=== PATIENT | female | born 1945 | race Caucasian/White ===

== ENCOUNTER 2016-07-11 10:53 | Inpatient (IN) | payer MEDICARE, OTHER ==
[~2016-07-11] VITALS: Ht 157.5 cm; Wt 49.9 kg
[~2016-07-11 10:53] MED LIST: ACTONEL 35 MG PO; BUTALB-APAP-CA1 EACH PO; CALCIUM 600+D T1 TA1 PO; DEPAKOTE500 MG PO; ELIQUIS5 MG PO; FISH OIL 1,2001 CAP PO; IMITREX6 MG/0.51 SQ; LYRICA200 MG PO; NEXIUM40 MG PO; PACERONE100 MG PO; PROZAC20 MG PO; REMERON30 MG PO; Rythmol PO; SYNTHROID50 MCG PO; TOPROL XL25 MG PO; ZETIA10 MG PO; [UNRECOGNIZED DRUG - OTHER] PO
[2016-07-11 12:12] LABS: BASOPHILS 0.4 % (0.0-2.0); EOSINOPHILS 1.4 % (0-7); HEMATOCRIT 40.5 % (36.0-48.0); IMMATURE GRANULOCYTES 0.3 % (0-5); LYMPHOCYTES 17.9 % (15-50); MCH 27.1 pg (26.0-34.0); MCHC 32.1 g/dL (31.0-37.0); MCV 84.4 fL (80.0-100.0); MEAN PLATELET VOLUME 9.6 fL (7.4-10.4); MONOCYTES 5.1 % (2-11); NEUTROPHILS 74.9 % (40-80); PLATELET COUNT 229 10x3/uL (130-400); RDW 16.4 % (11.5-14.5)
[2016-07-11 12:27] LABS: APPEARANCE CLEAR (CLEAR); BILIRUBIN NEGATIVE (NEGATIVE); COLOR YELLOW (YELLOW); GLUCOSE NEGATIVE (NEGATIVE); KETONE NEGATIVE (NEGATIVE); LEUKOCYTE ESTERASE NEGATIVE (NEGATIVE); NITRITE NEGATIVE (NEGATIVE); PROTEIN NEGATIVE (NEGATIVE); SPECIFIC GRAVITY 1.015 (1.005-1.020); UROBILINOGEN NORMAL (NORMAL)
[2016-07-11 12:41] LABS: ALBUMIN 2.7 g/dL (3.4-5.0); ALKALINE PHOSPHATASE 134 U/L (46-116); ALT (SGPT) 17 U/L (10-68); BILIRUBIN - TOTAL 0.32 mg/dL (0.2-1.3); CALC OSMOLALITY 275 mosm/kg (275-300); CALCIUM 8.9 mg/dL (8.5-10.1); CARBON DIOXIDE 27.9 mmol/L (21.0-32.0); CHLORIDE - SERUM 104 mmol/L (98-107); CREATININE - SERUM 0.9 mg/dL (0.6-1.3); GLUCOSE 86 mg/dL (74-106); POTASSIUM - SERUM 4.5 mmol/L (3.5-5.1); PROTEIN - SERUM 7.1 g/dL (6.4-8.2); SODIUM 139 mmol/L (136-145); UREA NITROGEN 11 mg/dL (7-18); eGFR NON AFRICAN AMERICAN 66 mL/min (90-120)
[2016-07-11 12:47] LABS: INR 1.37 (0.85-1.17); PROTIME 16.8 SECONDS (11.6-15.0)
[2016-07-11 12:48] LABS: AMYLASE - SERUM 50 U/L (25-115); CREATINE KINASE 57 UL (21-215); LIPASE 61 U/L (73-393); PRO BNP 100 pg/mL (0-125); THYROID STIMULATING HORMONE 0.92 uIU/mL (0.36-3.74); VALPROIC ACID (DEPAKOTE) 63.5 ug/mL (50.0-100.0)
[2016-07-11 12:50] LABS: TROPONIN-I < 0.017 ng/mL (0.000-0.060)
[2016-07-12] VITALS: BP 129/71
[2016-07-12 04:00] VITALS: BP 131/75
[2016-07-12 06:10] VITALS: BP 109/67; BMI 20.1
[2016-07-12 06:37] LABS: BASOPHILS 0.7 % (0.0-2.0); EOSINOPHILS 1.8 % (0-7); HEMATOCRIT 36.3 % (36.0-48.0); HEMOGLOBIN 11.4 g/dL (12-16); IMMATURE GRANULOCYTES 0.1 % (0-5); LYMPHOCYTES 23.5 % (15-50); MCH 26.3 pg (26.0-34.0); MCHC 31.4 g/dL (31.0-37.0); MCV 83.8 fL (80.0-100.0); MEAN PLATELET VOLUME 9.5 fL (7.4-10.4); MONOCYTES 6.1 % (2-11); NEUTROPHILS 67.8 % (40-80); PLATELET COUNT 190 10x3/uL (130-400); RBC 4.33 10x6/uL (4.00-5.40); RDW 16.6 % (11.5-14.5)
[2016-07-12 06:38] LABS: WBC 7.4 10x3/uL (4.8-10.8)
[2016-07-12 06:52] LABS: CALC OSMOLALITY 277 mosm/kg (275-300); CALCIUM 8.7 mg/dL (8.5-10.1); CARBON DIOXIDE 28.4 mmol/L (21.0-32.0); CHLORIDE - SERUM 107 mmol/L (98-107); CREATININE - SERUM 0.7 mg/dL (0.6-1.3); GLUCOSE 86 mg/dL (74-106); POTASSIUM - SERUM 4.4 mmol/L (3.5-5.1); SODIUM 141 mmol/L (136-145); UREA NITROGEN 8 mg/dL (7-18); eGFR NON AFRICAN AMERICAN 88 mL/min (90-120)
--- NOTE | 2016-07-12 07:12 | HP ---
PATIENT: ROGER FARRELL MEDICAL RECORD: [id number] ACCOUNT: [id number] LOCATION:D.MS [id number] : 46 ADMISSION DATE: 07/11/16 HISTORY AND PHYSICAL EXAMINATION DATE OF ADMISSION: 07/11/2016 CHIEF COMPLAINT: Chronic nausea, lethargy, and generalized weakness. HISTORY OF PRESENT ILLNESS: The patient is a 70-year-old female who is a patient of Dr. Preston Sawant. Dr. Sawant does not round in [place]. Therefore, the patient is admitted to my service on an unassigned medicine. Apparently for the past 4 to 5 days, the patient has had increasing weakness. The states she has not been herself. She has been wheelchair bound at home. PAST MEDICAL HISTORY: Apparently in 2006, the patient was admitted in [place] for a bladder tuck, and apparently, had some anoxic episode that left her with some brain damage. Apparently, in late 2015, the patient was admitted to [place] in May or June with early CVA. The patient's past history is significant that she has had a history of atrial fibrillation. She also apparently has a history of gastroesophageal reflux, and also, she has a history of chronic pain and depression. FAMILY HISTORY: Father in his 40s of TB. Mother apparently in her 70s secondary to TB. Apparently, the patient has had a history of having a lung partial lobectomy secondary to TB in the 1960s. MEDICATIONS: Include Zetia 10 mg once a day, Imitrex 6 mg subcutaneous q.24 hours p.r.n. pain, Lyrica 200 mg 1 p.o. t.i.d., Prozac 20 mg once a day, Remeron 30 mg once a day, Depakote EC 500 mg p.o. b.i.d., Fioricet 50/325/40 two p.o. daily, Nexium 40 mg once a day, Actonel 35 mg once a week, Eliquis 5 mg b.i.d., Rythmol 150 p.o. b.i.d., and levothyroxine 50 mcg once a day. ALLERGIES: ABILIFY, CODEINE, AMBIEN, DEMEROL, EPINEPHRINE, FLEXERIL, CODEINE, STADOL, VALIUM, VICODIN, SULFA, AND LATEX. REVIEW OF SYSTEMS: CONSTITUTIONAL: She denies any headaches, seizures, or syncope. Denies change in visual or auditory acuity. PULMONARY: She denies any shortness of breath, cough or congestion, history of asthma or bronchitis. CARDIOVASCULAR: No chest pain, palpitation, PND, or orthopnea. GASTROINTESTINAL: No chronic nausea, vomiting, melena, or hematochezia. GENITOURINARY: No urgency, frequency, or dysuria. PHYSICAL EXAMINATION: VITAL SIGNS: Respirations 18, temperature 97.9, blood pressure 156/94, and O2 sat is 99% on room air. GENERAL: The patient is somewhat sedated, is at bedside. The patient is awake. She is oriented to person, not to time, although she is alert and aware of the place. HEENT: Head is normocephalic. No lesions. Ears, TMs are clear. Eyes, pupils are equal, round, and reactive to light. Extraocular movements intact. Nasal cavity, oral cavity, and oropharynx clear. HISTORY AND PHYSICAL [id number] ROGER FARRELL NECK: Supple. There is no adenopathy. HEART: Has a regular rhythm. No murmurs, gallops, or rubs. LUNGS: Clear. ABDOMEN: Soft, bowel sounds positive. No organomegaly. LABORATORY AND DIAGNOSTIC DATA: The patient did have a white count of 11, hemoglobin of 13, hematocrit of 40.5, and her platelets were 229. She had a sodium of 139, potassium of 4.5, chloride of 104, CO2 of 27.9, BUN of 11, creatinine of 0.9, and blood sugar of 86. Urinalysis is unremarkable. CT scan of the head showed no acute intracranial abnormalities, generalized cerebral atrophy. Chest x-ray showed no cardiomegaly, no active infiltrates. The patient had a gallbladder ultrasound showing negative gallbladder ultrasound. ASSESSMENT: 1. Lethargy, chronic nausea, history of anoxic brain injury, and history of seizure disorder. 2. Cerebrovascular accident. 3. Headaches. 4. Gastroesophageal reflux. PLAN: The patient will be admitted. She will be placed on IV hydration and antiemetics. The patient will have a PIPIDA scan performed. We will get a Depakote level and reassess in the a.m. TRANSINT:[id number] Voice Confirmation ID: [id number] DOCUMENT ID: [id number] JEANMARIE GRACIA MD at 0712 CC: [id number] DICTATION DATE: 07/11/16 1844 PARQUET FLOOR LAYER: 07/12/16 0039 ADM IN [place] [id number] [place] [id number]
--- NOTE | 2016-07-12 07:30 | NUR ---
RECEIVED REPORT. ASSUMED CARE OF PATIENT. CALL LIGHT WITHIN REACH. RESP EVEN AND UNLABORED. RESTING WITH EYES CLOSED. NO ACUTE DISTRESS.
--- NOTE | 2016-07-12 07:45 | NUR ---
PATIENT MADE NPO AT THIS TIME FOR PIPIDA SCAN AT 1030. ASSISTED PATIENT TO BEDPAN. NO ACUTE DISTRESS.
[2016-07-12 08:28] VITALS: BP 135/92
--- NOTE | 2016-07-12 10:29 | NUR ---
1015 PATIENT RETURNED FROM MRI AND LEFT AT 1025 FOR PIPIDA SCAN. PATIENT IN NO ACUTE DISTRESS UPON LEAVING UNIT. PIPIDA SCAN TAKES ABOUT 1 1/2 HOUR TO COMPLETE.
--- NOTE | 2016-07-12 12:20 | NUR ---
ULTRASOUND AT BEDSIDE AT THIS TIME.
--- NOTE | 2016-07-12 12:46 | NUR ---
MEDICATED FOR PAIN, FIBROMYALGIA. TELEMETRY APPLIED AT THIS TIME. NO DISTRESS.
--- NOTE | 2016-07-12 13:13 | NUR ---
CALLED DIETARY AND AGAIN REQUESTED THAT PATIENT BE GIVEN A LUNCH TRAY! STATED THEY WOULD SEND ONE NOW BUT THEIR RECORDS INDICATE SHE RECEIVED ONE.
[2016-07-12 13:55] VITALS: Ht 157.5 cm; Wt 49.9 kg
--- NOTE | 2016-07-12 14:10 | NUR ---
MEDICATED FOR NAUSEA AT THIS TIME. NO DISTRESS.
--- NOTE | 2016-07-12 14:50 | NUR ---
Patient Name: ROGER FARRELL Admission Status: ER Accout number: [id number] Admission Date: 07-11-2016 : 1945 Admission Diagnosis: Attending: VANDANA Current LOS: 1 Anticipated DC Date: 07-16-2016 Planned Disposition: Home Primary Insurance: MEDICARE A & B Discharge Planning Comments: CM MET WITH SPOUSE (JB) REGARDING PATIENTS DISCHARGE PLANS AND NEEDS. SPOUSE STATED THEY HAVE 5 STEPS W/RAILS TO ENTER HOME AND 1 FLIGHT W/LIFT IN HOME. SPOUSE STATED HE WOULD BE DRIVING PATIENT HOME IF SHE DOES NOT GO TO [facility]. SPOUSE IS GOING TO TALK WITH THEM THIS WEEK. PATIENTS PCP IS DR. ERICKSON AND PHARMACY IS [facility]. PATIENT IS VERY DEPENDENT ON HER SPOUSE FOR HER CARE. SHE HAS A BS COMMODE, SHOWER CHAIR, WALKER, ROLATOR WALKER, HAND RAILS, PORT O2, NEBULIZER, AND OXYGEN AT HS. OXYGEN IS PROVIDED BY [facility]. SPOUSE STATED SHE HAS GOTTEN WORSE SINCE LAST WEEK AND THAT IS WHY HE IS TALKING WITH [facility]. CM WILL CONTINUE TO FOLLOW PATIENT WITH D/C NEEDS AND PLANS. PATIENT HAS NEVER HAD HOME HEALTH. PCP DR. DRE ALICIA [facility]- [phone] JB (SPOUSE) [phone] Metal Precision Machine Assembler: Latoya Munson Is the patient Alert and Oriented? Yes 0 * How many steps to enter\exit or inside your home? 5 W/RAILS 0 * PCP DR. ERICKSON 0 * Pharmacy [facility] 0 * Preadmission Environment Home with Family 0 * ADLs Independent 0 * Equipment Bedside Commode Cane Nebulizer Oxygen Rolling Walker Shower Chair Walker Wheelchair 0 * Other Equipment HAND RAILS THROUGHOUT HOME 0 * List name and contact numbers for known caregivers / representatives who currently or will assist patient after discharge: JB (SPOUSE) [phone] * Community resources currently utilized None 0 * Additional services required to return to the preadmission environment? Yes 0 * Can the patient safely return to the preadmission environment? Yes 0 * Has this patient been hospitalized within the prior 30 days at any hospital? No 0 Grand Total: 0
--- NOTE | 2016-07-12 15:18 | NUR ---
SPOKE TO ABHI, NURSE TO REPORT PATIENT N/V, DIAPHORETIC. FSBS 101. VS 116/85, 90 SR, 96% O2 SAT, 18RESP. REPORTED ZOFRAN GIVEN AT 1410. ABHI STATED IS IN ROOM WITH PATIENT AND SHE WOULD CALL ME RIGHT BACK. INFORMED ABHI THAT ALL TEST PREFORMED THIS AM HAVE CAME BACK WNL.
[2016-07-12 15:45] VITALS: BP 116/85
--- NOTE | 2016-07-12 15:45 | NUR ---
ABHI FROM OFFICE CALLED BACK WITH NEW ORDERS FOR MOM. REQUESTED ORDERS FOR ENEMA PAIENT CONSTIPATED AND STRAINING CAUSING HERSELF TO BE [id number]. GAVE ORDERS FOR FLEETZ ENEMA AND MOM DAILY. THANKED AND ABHI.
--- NOTE | 2016-07-12 16:20 | NUR ---
ENEMA SUCCESSFUL. EX LARGE BM AFTER 1ST FLEETZ ENEMA. BOWEL MOVEMENT NOTED TO HAVE IRRITATED HEMORROIDS, RECTUM. SMALL AMOUNT OF BLOOD NOTED. COMPLETE BED CHANGE, TURNED AND REPOSITIONED. PATIENT STATES SHE FEELS MUCH BETTER. NO FURTHER DIAPHORESIS AT THIS TIME.
[2016-07-12 19:00] VITALS: BP 126/80
--- NOTE | 2016-07-12 19:55 | NUR ---
PATIENT RESTING IN BED WATCHING TV. NO SIGNS OF DISTRESS NOTED AT THIS TIME. RESPIRATIONS EVEN AND UNLABORED. DENIES ANY NEEDS AT THIS TIME. BED LOW. CALL LIGHT IN REACH.
[2016-07-13 04:00] VITALS: BP 128/80
--- NOTE | 2016-07-13 04:38 | NUR ---
PT IN BED WITH NO DISTRESS. BED IS LOW. SIDE RAILS ARE UP X 2. CALL LIGHT IS IN REACH.
--- NOTE | 2016-07-13 08:07 | NUR ---
PT SEEN AND ASSESSED. NO COMPLAINTS AT PRESENT. NO NAUSEA DURING NIGHT OR THIS AM TO DATE. STATES HAD A LARGE BM YESTERDAY EVENING AND FEELS BETTER. NO SKIN BREAKDOWN NOTED. BED ALARM FOR SAFETY. NO NEURO DEFICITS NOTED.
[2016-07-13 08:17] VITALS: BP 127/85
--- NOTE | 2016-07-13 10:13 | NUR ---
UP TO CHAIR WITH PHYSICAL THERAPY. CHAIR MAT ALARM APPLIED TO CHAIR FOR SAFETY
[2016-07-13 13:55] VITALS: BP 118/65
[2016-07-13 16:05] VITALS: BP 125/71
[2016-07-13 21:11] VITALS: BP 112/62
--- NOTE | 2016-07-14 02:20 | NUR ---
RN NOTE: PT LYING IN SEMI MELO'S POSITION WITH EYES CLOSED AND EASY RESPIRATIONS. IV IN RIGHT FA PATENT WITH NS INFUSING AT 100 ML / HR. SCD'S IN USE ON BLE. CALL LIGHT WITHIN REACH.
[2016-07-14 04:54] VITALS: BP 131/85
[2016-07-14 05:22] LABS: BASOPHILS 0.4 % (0.0-2.0); EOSINOPHILS 2.9 % (0-7); HEMATOCRIT 35.3 % (36.0-48.0); IMMATURE GRANULOCYTES 0.1 % (0-5); LYMPHOCYTES 25.4 % (15-50); MCH 26.4 pg (26.0-34.0); MCHC 31.2 g/dL (31.0-37.0); MCV 84.7 fL (80.0-100.0); MEAN PLATELET VOLUME 10.1 fL (7.4-10.4); MONOCYTES 6.6 % (2-11); NEUTROPHILS 64.6 % (40-80); PLATELET COUNT 172 10x3/uL (130-400); RBC 4.17 10x6/uL (4.00-5.40); RDW 17.1 % (11.5-14.5); WBC 7.3 10x3/uL (4.8-10.8)
[2016-07-14 05:44] LABS: CALC OSMOLALITY 276 mosm/kg (275-300); CALCIUM 8.3 mg/dL (8.5-10.1); CARBON DIOXIDE 31.4 mmol/L (21.0-32.0); CHLORIDE - SERUM 104 mmol/L (98-107); CREATININE - SERUM 0.6 mg/dL (0.6-1.3); GLUCOSE 92 mg/dL (74-106); POTASSIUM - SERUM 3.8 mmol/L (3.5-5.1); SODIUM 140 mmol/L (136-145); UREA NITROGEN 8 mg/dL (7-18); eGFR NON AFRICAN AMERICAN > 90 mL/min (90-120)
[2016-07-14] MEDS ORDERED: LYRICA25 MG PO (06:37)
--- NOTE | 2016-07-14 07:52 | NUR ---
RESTING WITHUOT DISTRESS.DENIES NEEDS.CALL LIGHT IN REACH
--- NOTE | 2016-07-14 08:00 | NUR ---
PT ASSESSMENT COMPLETE NO ACUTE DISTRES SNTOED RESTING QUIETLY WIH EYES CLOSED RESPS EVENA ND NON LABORED PRIYANKA LIGHT INREACH SIDE RAILS UP X 2 . SPOKE WITH SPO AND QUOC AT MD NOTES IN CHART PT HAS AAA THAT HAS NO NECESSARY TREATMENT AT THIS TIME IF TREATMENT NEEDED LATER PT IS CANIDATE FOR NON OPEN SURGICAL SENTENTING AT [facility]. WILL MONITOR
--- NOTE | 2016-07-14 08:00 | NUR ---
PT ASSESSMENT COMPLETE NO ACUTE DISTRESS NTOED RESTING QUIETLY WITH EYES CLOSED RESPS EVEN AND UNLABORED. AWAITING TRANSFER TO ANOTHER HOSPITAL FOR AAA REPAIR THERE IS UNDERLYING ISSUES THAT CANT BE SAFELY TREATED HERE
[2016-07-14 10:05] VITALS: BP 156/104
--- NOTE | 2016-07-14 11:45 | NUR ---
DISCHARGE INSTRUCTIONS GIVEN TO PT AND FAMILY UNDERSTANDING EXPRESSED PER SPOUSE RX GIVEN AWAITING AMBULANCE TRANSFER OF PT TO HOME. IV D/C WITH TIP INTACT
--- NOTE | 2016-07-14 12:28 | NUR ---
PT DISCHARGED AT THIS TIME PER EMS ALERT AND AWAKE AT TIME OF TRANSFER
--- NOTE | 2016-07-15 11:11 | EC ---
PATIENT:ROGER FARRELL DATE OF SERVICE: 07/11/16 SEX: F MEDICAL RECORD: [id number] DATE OF : [birth year] LOCATION:D.MS Chaparro223 AGE OF PATIENT: 70 ADMISSION DATE: 07/11/16 REFERRING PHYSICIAN: INTERPRETING PHYSICIAN: ELISE FOUNTAIN MD ECHOCARDIOGRAM REPORT ECHO CHARGES 4 ECHO COMPLETE CLINICAL DIAGNOSIS: AFIB/CVA ECHOCARDIOGRAPHIC MEASUREMENTS (adult normal given) AC root (d.<3.7cm) 3.5 LV Septum d (<1.2 cm> 1.2 Valve Excursion 1.7 LV Septum (systole) 1.3 Left Atria (s.<4.0cm> 2.7 LVPW d(<1.2cm) 1.2 RV (d.<2.3cm) 3.9 LVPW (sytole) 1.4 LV diastole(<5.6CM) 4.0 MV E-F(>70mm/sec) LV systole 2.8 LVOT Diameter 1.9 MV exc.(>10mm) 1.1 Est.ejection fraction (50-75%) Pericardial Effusion N DOPPLER: LVIT A 95.0 E 58.0 LA RVSP 17 LVOT 127 AOP1/2T Asc. Ao 148 RVOT 94 RA PA 147 AV Gradient Peak 8.8 AV Mean 5.6 AV Area 1.8 MV Gradient Peak 4.4 MV Mean 1.83 MV Area COMMENTS: Senior Executive Compensation Analyst: Ankur AGARWAL House Wrecker:Wilma Fountain TAPE# PACS DATE OF SERVICE: 07/12/2016 Echocardiogram FINDINGS: 1. Left ventricular chamber size is within normal limits. Left ventricular systolic function is normal. Overall ejection fraction estimated at 60%. 2. Left atrium, right atrium, and right ventricular chamber sizes are within normal limits. 3. Valvular structures have normal structure and motion. ECHOCARDIOGRAM REPORT [id number] ROGER FARRELL 4. Doppler interrogation only reveals trace tricuspid regurgitation, no other valvular insufficiency or stenosis. 5. No evidence of pericardial effusion or left ventricular thrombus. TRANSINT:[id number] Voice Confirmation ID: [id number] DOCUMENT ID: [id number] ELISE FOUNTAIN MD at 1111 CC: [id number] DICTATION DATE: 07/13/16 0937 CERTIFIED MEDICAL CODER: 07/13/16 0944 DIS IN 07/14/16 [facility] [address] [place] [address]
== END 2016-07-14 12:29 | disposition home or self-care (01) | DRG 918 ==
LOC: D.ER 10:53 → D.MS 17:57
PROVIDERS: Family Medicine; Nurse Practitioner Family; ADMIT Family Medicine
DX: T50.901A Poisoning by unspecified drugs, medicaments and biological substances, accidental (unintentional), initial encounter (principal); R53.83 Other fatigue; I71.4 Abdominal aortic aneurysm, without rupture; Z86.73 Personal history of transient ischemic attack (TIA), and cerebral infarction without residual deficits; Z99.3 Dependence on wheelchair; E03.9 Hypothyroidism, unspecified; I48.91 Unspecified atrial fibrillation; R53.1 Weakness; G89.29 Other chronic pain

== ENCOUNTER 2016-09-24 09:31 | Emergency (ER) | payer MEDICARE, OTHER ==
[2016-07-12 13:55] VITALS: BMI 20.1
[~2016-09-24 09:31] MED LIST changes: +LYRICA25 MG PO
[2016-09-24 11:39] LABS: ALBUMIN 2.7 g/dL (3.4-5.0); ALKALINE PHOSPHATASE 90 U/L (46-116); ALT (SGPT) 26 U/L (10-68); CALC OSMOLALITY 262 mosm/kg (275-300); CALCIUM 9.3 mg/dL (8.5-10.1); CARBON DIOXIDE 26.3 mmol/L (21.0-32.0); CHLORIDE - SERUM 96 mmol/L (98-107); CREATINE KINASE 31 UL (21-215); CREATININE - SERUM 0.7 mg/dL (0.6-1.3); GLUCOSE 113 mg/dL (74-106); POTASSIUM - SERUM 3.7 mmol/L (3.5-5.1); PROTEIN - SERUM 6.4 g/dL (6.4-8.2); SODIUM 132 mmol/L (136-145); TROPONIN-I < 0.017 ng/mL (0.000-0.060); UREA NITROGEN 4 mg/dL (7-18); eGFR NON AFRICAN AMERICAN 88 mL/min (90-120)
[2016-09-24 11:43] LABS: APPEARANCE CLEAR (CLEAR); BILIRUBIN NEGATIVE (NEGATIVE); COLOR YELLOW (YELLOW); GLUCOSE NEGATIVE (NEGATIVE); KETONE NEGATIVE (NEGATIVE); LEUKOCYTE ESTERASE NEGATIVE (NEGATIVE); NITRITE NEGATIVE (NEGATIVE); PROTEIN NEGATIVE (NEGATIVE); UROBILINOGEN NORMAL (NORMAL)
[2016-09-24 11:44] LABS: BASOPHILS 0.1 % (0.0-2.0); EOSINOPHILS 0 % (0-7); HEMOGLOBIN 13.6 g/dL (12-16); IMMATURE GRANULOCYTES 0.2 % (0-5); LYMPHOCYTES 8.2 % (15-50); MCH 27.6 pg (26.0-34.0); MCHC 33.2 g/dL (31.0-37.0); MCV 83.3 fL (80.0-100.0); MEAN PLATELET VOLUME 9.2 fL (7.4-10.4); MONOCYTES 6.4 % (2-11); NEUTROPHILS 85.1 % (40-80); PLATELET COUNT 180 10x3/uL (130-400); RBC 4.92 10x6/uL (4.00-5.40); RDW 21.4 % (11.5-14.5); WBC 9.6 10x3/uL (4.8-10.8)
== END 2016-09-24 13:43 | disposition home or self-care (01) ==
LOC: D.ER 09:31
PROVIDERS: Emergency Medicine
DX: J06.9 Acute upper respiratory infection, unspecified (principal); J20.9 Acute bronchitis, unspecified; J44.1 Chronic obstructive pulmonary disease with (acute) exacerbation; E87.1 Hypo-osmolality and hyponatremia

== ENCOUNTER 2016-11-14 11:41 | Inpatient (IN) | payer MEDICARE, OTHER ==
[~2016-11-14] VITALS: Ht 157.5 cm; Wt 49.9 kg
[2016-11-14 12:11] LABS: BASOPHILS 0.4 % (0-2); EOSINOPHILS 1.6 % (0-7); HEMATOCRIT 42.2 % (36.0-48.0); HEMOGLOBIN 13.8 g/dL (12-16); IMMATURE GRANULOCYTES 0.3 % (0-5); LYMPHOCYTES 21.4 % (15-50); MCH 29.1 pg (26.0-34.0); MCHC 32.7 g/dL (31.0-37.0); MCV 88.8 fL (80.0-100.0); MEAN PLATELET VOLUME 9.5 fL (7.4-10.4); NEUTROPHILS 67.3 % (40-80); PLATELET COUNT 184 10x3/uL (130-400); RBC 4.75 10x6/uL (4.00-5.40); RDW 18.5 % (11.5-14.5); WBC 6.9 10x3/uL (4.8-10.8)
[2016-11-14 12:20] LABS: APPEARANCE HAZY (CLEAR); BILIRUBIN NEGATIVE (NEGATIVE); COLOR YELLOW (YELLOW); GLUCOSE NEGATIVE (NEGATIVE); KETONE NEGATIVE (NEGATIVE); LEUKOCYTE ESTERASE 1+ (NEGATIVE); NITRITE POSITIVE (NEGATIVE); PROTEIN NEGATIVE (NEGATIVE); UROBILINOGEN NORMAL (NORMAL)
[2016-11-14 12:23] LABS: BACTERIA MANY /hpf (NONE SEEN); EPITHELIAL CELLS 0-5 /hpf (0-5); RED CELLS - URINE 0-5 /hpf (0-5)
[2016-11-14 12:47] LABS: ALBUMIN 3.1 g/dL (3.4-5.0); ALKALINE PHOSPHATASE 85 U/L (46-116); ALT (SGPT) 19 U/L (10-68); BILIRUBIN - TOTAL 0.17 mg/dL (0.2-1.3); CALC OSMOLALITY 270 mosm/kg (275-300); CALCIUM 9.2 mg/dL (8.5-10.1); CARBON DIOXIDE 30.9 mmol/L (21.0-32.0); CHLORIDE - SERUM 100 mmol/L (98-107); CREATININE - SERUM 0.8 mg/dL (0.6-1.3); GLUCOSE 107 mg/dL (74-106); POTASSIUM - SERUM 3.7 mmol/L (3.5-5.1); PROTEIN - SERUM 7.1 g/dL (6.4-8.2); SODIUM 137 mmol/L (136-145); UREA NITROGEN 3 mg/dL (7-18); eGFR NON AFRICAN AMERICAN 75 mL/min (90-120)
[2016-11-14 12:56] LABS: PRO BNP 92 pg/mL (0-125)
[2016-11-14 16:58] VITALS: BP 122/73
[2016-11-14] MEDS ORDERED: PROZAC20 MG PO (17:29)
[2016-11-14] MEDS ORDERED: REMERON30 MG PO (17:29)
[2016-11-14] MEDS ORDERED: RYTHMOL SR225 MG PO (17:31)
[2016-11-14 17:37] VITALS: BMI 20.1
[2016-11-14 19:53] LABS: ERYTHROCYTE SEDIMENTATION RATE 4 mm/hr (0-30)
[2016-11-14 20:00] VITALS: BP 102/69
--- NOTE | 2016-11-14 22:00 | NUR ---
ASSESSMENT COMPLETE. NIGHTTIME MEDS GIVEN. URINE CULTURE ORDERED BUT PATIENT INCONTINENT. SAMPLE RETRIEVED VIA IN AND OUT CATH. ATTEMPTED TO TURN PATIENT BUT SHE REFUSED AND STATED "I SLEEP ON MY LEFT SIDE ALL NIGHT LONG AT HOME."
[2016-11-15] VITALS (7 sets, daily range): BP systolic 129–147; BP diastolic 72–77; Ht 157.5 cm; Wt 49.9 kg
--- NOTE | 2016-11-15 06:50 | NUR ---
MORNING MEDS GIVEN. NO OTHER NEEDS AT THIS TIME.
--- NOTE | 2016-11-15 07:30 | NUR ---
FAMILY AT BEDSIDE, A&O, DENIES NEEDS, ASSESSMENT COMPLETE, EGG CRATE MATTRESS PLACED ON BED FOR COMFORT, BED LOWEST POSITION, CALL LIGHT IN REACH, WILL CONTINUE TO MONITOR
--- NOTE | 2016-11-15 09:10 | NUR ---
PATIENT ALERT IN HIGH MELO POSITION WITH AT BEDSIDE. NO SIGNS OF DISTRESS NOTED. SIDE RAILS UP X2. BED IN LOW POSITION. CALL LIGHT IN REACH.
[2016-11-15 09:50] LABS: BASOPHILS 0.4 % (0-2); EOSINOPHILS 1.6 % (0-7); HEMATOCRIT 40.9 % (36.0-48.0); HEMOGLOBIN 13.1 g/dL (12-16); IMMATURE GRANULOCYTES 0.3 % (0-5); LYMPHOCYTES 18.8 % (15-50); MCH 28.7 pg (26.0-34.0); MCV 89.7 fL (80.0-100.0); MEAN PLATELET VOLUME 9.3 fL (7.4-10.4); MONOCYTES 8.3 % (2-11); NEUTROPHILS 70.6 % (40-80); PLATELET COUNT 159 10x3/uL (130-400); RBC 4.56 10x6/uL (4.00-5.40); RDW 18.4 % (11.5-14.5); WBC 7.7 10x3/uL (4.8-10.8)
[2016-11-15 10:05] LABS: ALBUMIN 2.7 g/dL (3.4-5.0); ALKALINE PHOSPHATASE 82 U/L (46-116); ALT (SGPT) 19 U/L (10-68); BILIRUBIN - TOTAL 0.14 mg/dL (0.2-1.3); CALC OSMOLALITY 272 mosm/kg (275-300); CALCIUM 8.7 mg/dL (8.5-10.1); CARBON DIOXIDE 31.7 mmol/L (21.0-32.0); CHLORIDE - SERUM 104 mmol/L (98-107); CREATININE - SERUM 0.7 mg/dL (0.6-1.3); GLUCOSE 107 mg/dL (74-106); POTASSIUM - SERUM 4.1 mmol/L (3.5-5.1); PROTEIN - SERUM 6.4 g/dL (6.4-8.2); SODIUM 138 mmol/L (136-145); eGFR NON AFRICAN AMERICAN 88 mL/min (90-120)
[2016-11-15 10:08] LABS: UREA NITROGEN 4 mg/dL (7-18)
--- NOTE | 2016-11-15 11:32 | NUR ---
Patient Name: ROGER FARRELL Admission Status: ER Accout number: [id number] Admission Date: 11-14-2016 : 1945 Admission Diagnosis: Attending: CELINA Current LOS: 1 Anticipated DC Date: 11-17-2016 Planned Disposition: [facility] Facility Primary Insurance: MEDICARE A & B Discharge Planning Comments: CM MET WITH PATIENT AND SPOUSE (JB) REGARDING D/C NEEDS AND PLANS. PATIENT LIVES WITH HER SPOUSE AND HE WILL DRIVE HER HOME IF PATIENT DOES NOT GO TO SNF. PATIENT HAS 5 STEPS W/RAILS TO ENTER HOME AND A 13 STAIRS W/CHAIR LIFT INSIDE HOME. PATIENT IS PARTIAL DEPENDENT ON HER CARE AND HAS OXYGEN (2L), PORT O2, NEBULIZER, WALKER, WHEELCHAIR, BSC, SHOWER CHAIR, AND CHAIR LIFT AT HOME. [employer] SUPPLIES PATIENTS OXYGEN. PATIENTS PCP IS DR. CAMACHO AND PHARMACY IS [facility] ON [address]. SPOUSE AND PATIENT HAS SIGNED THE [facility]ER FORM WITH [facility]. CM WILL CONTINUE TO FOLLOW PATIENT WITH D/C NEEDS AND PLANS. PCP DR. JANICE JAFFE ON [facility]- [phone] JB (SPOUSE) [phone] Senior Technical Analyst: Latoya Munson How many steps to enter\exit or inside your home? 5 W/RAILS 0 * PCP DR. CAMACHO 0 * Pharmacy [facility] 0 * Preadmission Environment Home with Family 0 * ADLs Partial Dependent 0 * Partial ADLs (Assistance needed) Bathing Dressing Medication Management Transfers 0 * Equipment Bedside Commode Nebulizer Oxygen Shower Chair Walker Wheelchair 0 * Other Equipment CHAIR LIFT UP STAIRWAY RAILS THROUGHOUT HOME 0 * List name and contact numbers for known caregivers / representatives who currently or will assist patient after discharge: JB (SPOUSE) [phone] * Community resources currently utilized None 0 * Additional services required to return to the preadmission environment? Yes 0 * Can the patient safely return to the preadmission environment? Yes 0 * Has this patient been hospitalized within the prior 30 days at any hospital? No 0 Grand Total: 0
--- NOTE | 2016-11-15 13:51 | HP ---
PATIENT: ROGER RICO MEDICAL RECORD: [id number] ACCOUNT: [id number] LOCATION:D.MS [id number] : [birth year] ADMISSION DATE: 11/14/16 HISTORY AND PHYSICAL EXAMINATION HISTORY OF PRESENT ILLNESS: Ms. Rico is a 71-year-old white female that presents to the Emergency Room with increasing weakness. She is found to have a UTI. She has a rather complicated medical past. Her primary care physician is Dr. Preston Sawant, who does not have privileges here. She apparently had some type of anoxic injury in 2006 in [place]. She has had some residual problems with some mood issues, but somewhere in the last year or so, she developed severe weakness. She was hospitalized in [facility] at [place]. She saw a neurologist there. She was also seen by neurology here who felt that she may have had some type of a stroke in the past, but that was never proven on MRI. She has had several episodes where she has increasing weakness and she goes for a couple months and stayed in rehabilitation and improved over time. Her oral last day was about 6 months ago and she did well up and then started having problems again. She states today that she has been unable to walk since about July on her own. She requires assistance of her who is no longer able to get her going or move her. She was found to have a UTI today, which may be contributing to some of her symptoms. She is admitted at this time for treatment of her UTI. We will start physical and occupational therapies. PAST MEDICAL HISTORY: As above plus she has a history of TB and underwent a left pneumonectomy in the early 60s. She has a history of intermittent atrial fibrillation, GERD, chronic pain, fibromyalgia, depression and neurological problems as above. PAST SURGICAL HISTORY: Previous surgeries have just been pneumonectomy. FAMILY HISTORY: Father in his 40s of TB. Mother in her 70s of TB. ALLERGIES: SHE HAS MULTIPLE ALLERGIES INCLUDING CODEINE, STADOL, DEMEROL, EPINEPHRINE, LATEX, VALIUM, SULFA, SLEEP AIDS, MUSCLE RELAXERS, ABILIFY, VICODIN, HYDROCODONE, TOPAMAX, VERSED AND PROPOFOL IN HIGHER DOSES. HOME MEDICATIONS: At this time, include Zetia 10 mg a day, Imitrex injection p.r.n., Lyrica 50 mg t.i.d., Prozac 20 mg t.i.d., Remeron 30 mg at bedtime, Nexium 40 mg a day, Depakote 1500 mg in the morning and 500 in the evening for migraine prevention, Fioricet p.r.n., calcium with D once a day, oxygen at 2 liters at night, Eliquis 5 twice a day, Rythmol 225 twice a day and promethazine 25 one-half to 1 p.r.n. nausea and vomiting. SOCIAL HISTORY: The patient is . She has been a smoker in the past. REVIEW OF SYSTEMS: She denies any fever. She does complain of increasing weakness primarily involving her lower extremities, a little bit in her upper extremities, but not to the extent of her lower. She denies any chest pain. She denies any shortness of breath. She denies any change in bladder or bowel habits. PHYSICAL EXAMINATION: GENERAL: She is alert and pleasant. Mood is somewhat depressed in appearance. HEART: Regular without murmur. LUNGS: Clear. HISTORY AND PHYSICAL [id number] ROGER RICO ABDOMEN: Soft. No rebound, no guarding and no mass. EXTREMITIES: Lower extremities reveal DTRs at +2. Muscle strength appears symmetric. IMPRESSION: Generalized weakness, worse in the lower extremities; urinary tract infection, intermittent atrial fibrillation and history of possible cerebrovascular accident. PLAN: Admit, treat UTI, cultures. We will check an MRI of the lumbar spine to rule out any low back pathology that might be contributing to her symptoms. Physical therapy and occupational therapy. We will get case management consult for possible rehab placement. TRANSINT:[id number] Voice Confirmation ID: [id number] DOCUMENT ID: [id number] TED KEANE DO at 1351 CC: [id number] DICTATION DATE: 11/14/16 183 NEW CAR INSPECTOR: 11/14/16 2149 ADM IN [facility] [address] [place] [address]
--- NOTE | 2016-11-15 19:00 | NUR ---
PATIENT IN BED WATCHING TV. HOB 30 DEGREES. AAOX4. RR EVEN AND UNLABORED. O2 @ 2L VIA NC. 0 S/S OF DISTRESS. STATES PAIN IS A 7/10. IV TO LEFT FA PATENT WITH NO REDNESS OR SWELLING. SCD'S OFF AT THIS TIME. SRX2. BED LOW. CALL LIGHT WITHIN REACH.
--- NOTE | 2016-11-15 21:00 | NUR ---
NIGHTTIME MEDS GIVEN. LINENS AND GOWN CHANGED DUE TO INCONTINENT EPISODE OF BLADDER.
--- NOTE | 2016-11-15 22:00 | NUR ---
PATIENT STATES MIGRAINE IS MAKING HER NAUSEATED. IMITREX GIVEN PER ORDER.
[2016-11-16 05:21] LABS: BASOPHILS 0.4 % (0-2); EOSINOPHILS 2.5 % (0-7); HEMATOCRIT 39.3 % (36.0-48.0); HEMOGLOBIN 12.8 g/dL (12-16); IMMATURE GRANULOCYTES 0.2 % (0-5); LYMPHOCYTES 35.4 % (15-50); MCH 29.4 pg (26.0-34.0); MCHC 32.6 g/dL (31.0-37.0); MCV 90.1 fL (80.0-100.0); MEAN PLATELET VOLUME 9.8 fL (7.4-10.4); MONOCYTES 8.8 % (2-11); NEUTROPHILS 52.7 % (40-80); PLATELET COUNT 160 10x3/uL (130-400); RBC 4.36 10x6/uL (4.00-5.40); RDW 18.5 % (11.5-14.5)
[2016-11-16 05:22] LABS: WBC 5.7 10x3/uL (4.8-10.8)
[2016-11-16 05:51] LABS: ALBUMIN 2.5 g/dL (3.4-5.0); ALKALINE PHOSPHATASE 73 U/L (46-116); ALT (SGPT) 16 U/L (10-68); CALC OSMOLALITY 281 mosm/kg (275-300); CALCIUM 8.6 mg/dL (8.5-10.1); CARBON DIOXIDE 31.1 mmol/L (21.0-32.0); CHLORIDE - SERUM 106 mmol/L (98-107); GLUCOSE 97 mg/dL (74-106); SODIUM 143 mmol/L (136-145); UREA NITROGEN 4 mg/dL (7-18)
[2016-11-16 05:53] LABS: CREATININE - SERUM 0.5 mg/dL (0.6-1.3); eGFR NON AFRICAN AMERICAN > 90 mL/min (90-120)
[2016-11-16 06:30] VITALS: BP 132/74
--- NOTE | 2016-11-16 07:40 | NUR ---
A&0, DENIES NEEDS, PLACED ON BED LEIJA, ASSESSMENT COMPLETE, BED LOWEST POSITION, CALL LIGHTIN REACH, WILL CONTINUE TO MONITOR
[2016-11-16 08:01] VITALS: BP 156/84
--- NOTE | 2016-11-16 11:13 | NUR ---
CM REASSESSMENT REFERRAL SENT TO [facility]
[2016-11-16 12:46] VITALS: BP 133/81
[2016-11-16 16:17] VITALS: BP 115/70
[2016-11-16 20:00] VITALS: BP 158/85
--- NOTE | 2016-11-16 20:40 | NUR ---
WATCHING TV QUIETLY. COMPLIANTS OF GENERALIZED DISCOMFORT AT TIMES. BUCKLEY. IV INFUSING TO RIGHT FOREARM WIHTOUT REDNESS OR EDEMA NOTED. CL IN REACH.
[2016-11-17] VITALS: BP 144/80
--- NOTE | 2016-11-17 00:49 | NUR ---
EYES CLOSED RESP EVEN AND UNALBORED. NO DISTRESS NOTED. CL IN REACH
[2016-11-17 04:00] VITALS: BP 142/78
--- NOTE | 2016-11-17 04:32 | NUR ---
PT RESTING QUIETLY, EYES CLOSED. RESP EVEN, UNLABORED. NO DISTRESS NOTED. CONTINUE GAGGERMAN'S PLAN OF CARE.
[2016-11-17 05:18] LABS: BASOPHILS 0.5 % (0-2); EOSINOPHILS 4.3 % (0-7); HEMATOCRIT 40.5 % (36.0-48.0); HEMOGLOBIN 12.9 g/dL (12-16); IMMATURE GRANULOCYTES 0.2 % (0-5); MCH 28.8 pg (26.0-34.0); MCHC 31.9 g/dL (31.0-37.0); MCV 90.4 fL (80.0-100.0); MEAN PLATELET VOLUME 9.7 fL (7.4-10.4); MONOCYTES 7.9 % (2-11); NEUTROPHILS 52.1 % (40-80); PLATELET COUNT 140 10x3/uL (130-400); RBC 4.48 10x6/uL (4.00-5.40); RDW 18.6 % (11.5-14.5); WBC 5.6 10x3/uL (4.8-10.8)
[2016-11-17 05:48] LABS: ALBUMIN 2.5 g/dL (3.4-5.0); ALKALINE PHOSPHATASE 74 U/L (46-116); ALT (SGPT) 17 U/L (10-68); BILIRUBIN - TOTAL 0.08 mg/dL (0.2-1.3); CALC OSMOLALITY 282 mosm/kg (275-300); CALCIUM 8.6 mg/dL (8.5-10.1); CARBON DIOXIDE 29.6 mmol/L (21.0-32.0); CHLORIDE - SERUM 107 mmol/L (98-107); CREATININE - SERUM 0.5 mg/dL (0.6-1.3); GLUCOSE 94 mg/dL (74-106); POTASSIUM - SERUM 3.8 mmol/L (3.5-5.1); PROTEIN - SERUM 6.2 g/dL (6.4-8.2); SODIUM 143 mmol/L (136-145); UREA NITROGEN 7 mg/dL (7-18); eGFR NON AFRICAN AMERICAN > 90 mL/min (90-120)
--- NOTE | 2016-11-17 06:11 | NUR ---
NO CHANGE IN ASSESSMENT. CL IN REACH.
--- NOTE | 2016-11-17 07:21 | NUR ---
REMAINSIN CONTACT ISOLATION AT THIS TIME. RESPIRATIONS EVEN AND NON LABORED. CALL LIGHT IN REACH, WILL CONTINUE WITH PLAN OF CARE.
[2016-11-17 07:38] VITALS: BP 156/83
--- NOTE | 2016-11-17 09:18 | NUR ---
PT IS RESTING IN BED WITH EYES OPEN. ALERT AND ORIENTED X 4. PT DENIES PAIN OR DISCOMFORT AT THIS TIME. SHE VOICED CONCERN ABOUT BEING PLACED IN ISOLATION THIS AM. REASONS EXPLAINED TO PT AND SIG. OTHER WITH VERBAL UNDERSTANDING VOICED. SCD'S ARE ON. IV IS INFUSING TO LFA WITHOUT DIFFICULTY. NO REDNESS OR EDEMA NOTED AT THE INSERTION SITE. SR'S ARE UP X2 IN BED. CALL LIGHT AND BEDSIDE TABLE ARE WITHIN EASY REACH.
--- NOTE | 2016-11-17 11:00 | NUR ---
PT IS SITTING IN A CHAIR AT BEDSIDE WITH ASSIST FROM PT. NO ACUTE DISTRESS NOTED.
[2016-11-17 12:22] VITALS: BP 158/83
--- NOTE | 2016-11-17 12:27 | NUR ---
PT IS FEEDING SELF LUNCH IN HER ROOM. NO NEEDS VOICED.
--- NOTE | 2016-11-17 14:32 | NUR ---
PT RESTING IN BED WITH EYES CLOSED. NO DISTRESS NOTED.
[2016-11-17 14:46] VITALS: BP 116/71
--- NOTE | 2016-11-17 18:04 | NUR ---
RESTING IN BED EATING SUPPER. NO ACUTE DISTRESS NOTED.
--- NOTE | 2016-11-17 19:56 | NUR ---
PATIENT C/O HEACHACHE 10/ PRN IMITREX GIVEN ORDERED. MAX ASSIST TO BSC. ALERT AND ORIENTED. NO SIGNS OF DISTRESS NOTED. SHIFT ASSESSMENT COMPLETED. DENIES ANY OTHER NEEDS AT THIS TIME. BED LOW. CALL LIGHT IN REACH
[2016-11-17 20:00] VITALS: BP 137/74
--- NOTE | 2016-11-17 21:40 | NUR ---
SCHEDULED MEDS GIVEN. DENIES ANY NEEDS AT THIS TIME.
[2016-11-18] VITALS: BP 117/60
--- NOTE | 2016-11-18 01:51 | NUR ---
PATIENT RESTING WITH EYES CLOSED AND NO VISIBLE SIGNS OF DISTRESS. BED IN LOWEST POSITION AND CALL LIGHT WITHIN REACH.
[2016-11-18 04:00] VITALS: BP 127/66; BP 152/82
[2016-11-18 06:32] LABS: BASOPHILS 1.3 % (0-2); EOSINOPHILS 4.7 % (0-7); HEMATOCRIT 41.2 % (36.0-48.0); HEMOGLOBIN 13.2 g/dL (12-16); IMMATURE GRANULOCYTES 0.2 % (0-5); LYMPHOCYTES 32.5 % (15-50); MCH 29.1 pg (26.0-34.0); MCV 90.9 fL (80.0-100.0); MEAN PLATELET VOLUME 9.9 fL (7.4-10.4); MONOCYTES 7.6 % (2-11); NEUTROPHILS 53.7 % (40-80); PLATELET COUNT 146 10x3/uL (130-400); RBC 4.53 10x6/uL (4.00-5.40); RDW 18.6 % (11.5-14.5); WBC 4.7 10x3/uL (4.8-10.8)
[2016-11-18 06:55] LABS: ALBUMIN 2.6 g/dL (3.4-5.0); ALKALINE PHOSPHATASE 74 U/L (46-116); CALC OSMOLALITY 283 mosm/kg (275-300); CALCIUM 8.6 mg/dL (8.5-10.1); CARBON DIOXIDE 32.7 mmol/L (21.0-32.0); CHLORIDE - SERUM 108 mmol/L (98-107); CREATININE - SERUM 0.5 mg/dL (0.6-1.3); GLUCOSE 87 mg/dL (74-106); POTASSIUM - SERUM 3.6 mmol/L (3.5-5.1); PROTEIN - SERUM 6.5 g/dL (6.4-8.2); SODIUM 144 mmol/L (136-145); UREA NITROGEN 8 mg/dL (7-18); eGFR NON AFRICAN AMERICAN > 90 mL/min (90-120)
[2016-11-18 07:05] LABS: ALT (SGPT) 23 U/L (10-68)
--- NOTE | 2016-11-18 07:15 | NUR ---
PATIENT RECEIVED ALERT IN HIGH MELO POSITION. NO SIGNS OF DISTRESS NOTED. DENIES NEEDS. SIDE RAILS UP X2. BED IN LOW POSITION. CALL LIGHT IN REACH.
[2016-11-18 07:51] VITALS: BP 160/83
--- NOTE | 2016-11-18 09:19 | NUR ---
PATIENT ALERT IN HIGH MELO POSITION WITH AT BEDSIDE. NO SIGNS OF DISTRESS NOTED. SCHEDULED MEDICATION ADMINISTERED. SIDE RAILS UP X2. BED IN LOW POSITION. CALL LIGHT IN REACH.
--- NOTE | 2016-11-18 10:47 | NUR ---
Nutrition Follow Up: Chart reviewed. Pt is eating 65% meal avg on a regular diet. Wt stable. +BM 11/15/16. Labs reviewed. Meds noted including Remeron. Rec continue current diet. RD following.
[2016-11-18] MEDS ORDERED: FLORAJEN3 CAPS460 MG PO (11:00)
[2016-11-18] MEDS ORDERED: ZOSYN 3.3753.375 G1 IV (11:07)
--- NOTE | 2016-11-18 11:18 | NUR ---
PATIENT ALERT IN BED. C/O PAIN 02/09. SCHEDULED MEDICATION ADMINISTERED. DENIES NEEDS. SIDE RAILS UP X2. BED IN LOW POSITION. CALL LIGHT IN REACH.
--- NOTE | 2016-11-18 11:32 | NUR ---
CM REASSESSMENT NOTE: PATIENT WILL DISCHARGE TODAY TO IP REHAB. AND PATIENT AGREED.
[2016-11-18 12:00] VITALS: BP 142/84
--- NOTE | 2016-11-18 14:00 | NUR ---
PATIENT ALERT IN HIGH MELO POSITION. NO SIGNS OF DISTRESS NOTED. SIDE RAILS UP X2. BED IN LOW POSITION. CALL LIGHT IN REACH.
--- NOTE | 2016-11-18 15:28 | NUR ---
REPORT CALLED TO REHAB. [facility] RECEIVED REPORT.
[2016-11-18 15:37] VITALS: BP 110/66
--- NOTE | 2016-11-18 15:58 | NUR ---
patient d/c to rehab via wheelchair.
== END 2016-11-18 15:58 | DRG 689 ==
LOC: D.ER 11:41 → D.MS 16:34
PROVIDERS: Emergency Medicine; ADMIT Family Medicine
DX: N39.0 Urinary tract infection, site not specified (principal); R53.2 Functional quadriplegia; R53.1 Weakness; I48.91 Unspecified atrial fibrillation; Z87.891 Personal history of nicotine dependence; I71.4 Abdominal aortic aneurysm, without rupture; B96.20 Unspecified Escherichia coli [E. coli] as the cause of diseases classified elsewhere; E03.9 Hypothyroidism, unspecified; J44.9 Chronic obstructive pulmonary disease, unspecified

== ENCOUNTER 2016-11-18 15:18 | Inpatient (IN) | payer MEDICARE, OTHER ==
[~2016-11-18] VITALS: Ht 157.5 cm; Wt 49.9 kg
[~2016-11-18 15:18] MED LIST changes: +FLORAJEN3 CAPS460 MG PO; +RYTHMOL SR225 MG PO; +ZOSYN 3.3753.375 G1 IV
--- NOTE | 2016-11-18 16:28 | NUR ---
PATIENT ADMITTED TO REHAB FROM ACUTE FLOOR. DR. ERICKSON IS PATIENT PCP. SHE USES [facility] ON [address]. [facility] IS HER DME. SHE HAS O2, NEBULIZER, WALKER, W/C, BSC, SHOWER CHAIR AT HOME. WILL CONTINUE TO FOLLOW WITH PATIENT AND WILL ASSIST WITH DISCHARGE NEEDS.
[2016-11-18 18:05] VITALS: BP 121/82; BMI 20.1
[2016-11-18 19:00] VITALS: BP 121/82
--- NOTE | 2016-11-18 20:00 | NUR ---
PT IN BED WITH HOB UP FOR COMFORT. WATCHING TV. ALERT & ORIENTED. LEFT FA SALINE LOC. O2 @ 2L VIA N/C. CONTACT ISOLATION FOR ESBO. INCONTINENT. EGG CRATE MATTRESS. ELECTROLYTE PROTOCOL. PT HAS NO COMPLAINTS AT THIS TIME. BED IN LOWEST POSITION AND CALL LIGHT REJIHTIN REACH.
--- NOTE | 2016-11-19 00:55 | NUR ---
RESTING IN BED ON LEFT SIDE, EYES CLOSED. APPEARS COMFORTABLE.
--- NOTE | 2016-11-19 04:53 | NUR ---
PT LYING IN BED. EYES CLOSED. BED IN LOWEST POSITION AND CALL LIGHT WITHIN REACH.
--- NOTE | 2016-11-19 08:15 | NUR ---
PT UP IN WHEELCHAIR IN ROOM EATING BREAKFAST CALL LIGHT IN REACH IN ROOM
[2016-11-19 08:43] LABS: CALC OSMOLALITY 280 mosm/kg (275-300); CALCIUM 9.5 mg/dL (8.5-10.1); CHLORIDE - SERUM 104 mmol/L (98-107); CREATININE - SERUM 0.6 mg/dL (0.6-1.3); GLUCOSE 90 mg/dL (74-106); POTASSIUM - SERUM 3.8 mmol/L (3.5-5.1); SODIUM 142 mmol/L (136-145); UREA NITROGEN 6 mg/dL (7-18); eGFR NON AFRICAN AMERICAN > 90 mL/min (90-120)
[2016-11-19 10:49] LABS: BASOPHILS 0.8 % (0-2); EOSINOPHILS 3.3 % (0-7); HEMATOCRIT 48.1 % (36.0-48.0); HEMOGLOBIN 15.1 g/dL (12-16); IMMATURE GRANULOCYTES 0.2 % (0-5); LYMPHOCYTES 27.2 % (15-50); MCH 28.7 pg (26.0-34.0); MCHC 31.4 g/dL (31.0-37.0); MCV 91.3 fL (80.0-100.0); MEAN PLATELET VOLUME 9.9 fL (7.4-10.4); NEUTROPHILS 62.5 % (40-80); PLATELET COUNT 139 10x3/uL (130-400); RBC 5.27 10x6/uL (4.00-5.40); RDW 18.2 % (11.5-14.5)
[2016-11-19 10:50] LABS: WBC 6.4 10x3/uL (4.8-10.8)
[2016-11-19 13:22] VITALS: Ht 157.5 cm; Wt 49.9 kg
--- NOTE | 2016-11-19 15:00 | NUR ---
SITTING UP IN WC.DENIES NEEDS.CL IN REACH.
--- NOTE | 2016-11-19 17:12 | NUR ---
PT UP IN WHEELCHAIR IN ROOM WITH CALL LIGHT IN REACH WILL MONITER
[2016-11-19 20:00] VITALS: BP 106/70
--- NOTE | 2016-11-19 20:00 | NUR ---
PT UP IN W/C. WATCHING TV. ALERT & ORIENTED. LEFT FA SALINE LOC. O2 @ 2L VIA N/C. CONTACT ISOLATION FOR ESBO. INCONTINENT AND BSC. EGG CRATE MATTRESS. TWO PERSON ASSIST. ELECTROLYTE PROTOCOL. PT HAS NO COMPLAINTS AT THIS TIME. CALL ELIAS GRECO.
--- NOTE | 2016-11-20 00:40 | NUR ---
RSTING IN BED, EYES CLOSED. ZOSYN IV INFUSING PER PUMP. PATIENT CONTINUES ON CONTACT ISOLATION FOR ESBL.
--- NOTE | 2016-11-20 02:50 | NUR ---
PT LYING IN BED. EYES CLOSED. CHEST RISING AND FALLING. BED IN LOWEST POSITION AND CALL LIGHT WITHIN REACH.
--- NOTE | 2016-11-20 04:40 | NUR ---
BED BATH GIVEN.
--- NOTE | 2016-11-20 08:05 | NUR ---
PT ASSISTED TO BEDSIDE COMMODE. BRIEF CHANGED DUE TO INCONT URINE. PT BACK IN BED AND EATING BREAKFAST, DENIES FURTHER NEEDS.
--- NOTE | 2016-11-20 09:54 | NUR ---
PT AM MEDS ADMINISTERED. PT DENIES NEEDS. CL IN REACH.
[2016-11-20 09:59] VITALS: BP 121/71
--- NOTE | 2016-11-20 12:05 | NUR ---
PT EATING LUNCH, DENIES NEEDS.
--- NOTE | 2016-11-20 15:05 | NUR ---
PT RESTING QUIETY IN BED, DENIES NEEDS.
[2016-11-20 20:00] VITALS: BP 104/64
--- NOTE | 2016-11-20 20:00 | NUR ---
PT UP IN W/C. WATCHING TV. PT HAS NO COMPLAINTS AT THIS TIME. CALL LIGHT WITHIN REACH.
--- NOTE | 2016-11-21 | NUR ---
PT LYING IN BED. EYES CLOSED. CHEST RISING AND FALLING. 02 @ 2L. BED IN LOWEST POSITION AND CALL LIGHT WITHINREACH.
[2016-11-21 06:37] LABS: BASOPHILS 1.2 % (0-2); EOSINOPHILS 4.7 % (0-7); HEMATOCRIT 38.5 % (36.0-48.0); HEMOGLOBIN 12.4 g/dL (12-16); IMMATURE GRANULOCYTES 0.4 % (0-5); LYMPHOCYTES 34.3 % (15-50); MCHC 32.2 g/dL (31.0-37.0); MCV 90.2 fL (80.0-100.0); MONOCYTES 8.4 % (2-11); PLATELET COUNT 112 10x3/uL (130-400); RBC 4.27 10x6/uL (4.00-5.40); RDW 18.3 % (11.5-14.5); WBC 5.1 10x3/uL (4.8-10.8)
[2016-11-21 06:56] LABS: CALCIUM 8.7 mg/dL (8.5-10.1); CARBON DIOXIDE 34.1 mmol/L (21.0-32.0); CHLORIDE - SERUM 106 mmol/L (98-107); GLUCOSE 88 mg/dL (74-106); POTASSIUM - SERUM 4.3 mmol/L (3.5-5.1); SODIUM 144 mmol/L (136-145)
[2016-11-21 07:03] LABS: CALC OSMOLALITY 284 mosm/kg (275-300); CREATININE - SERUM 0.4 mg/dL (0.6-1.3); UREA NITROGEN 11 mg/dL (7-18); eGFR NON AFRICAN AMERICAN > 90 mL/min (90-120)
--- NOTE | 2016-11-21 07:35 | NUR ---
RESTING QUIETLY IN BED CALL LIGHT IN REACH
--- NOTE | 2016-11-21 09:09 | NUR ---
VISITED WITH SPOUSE AND HE WOUYLD LIKE FOR HER TO DISCHARGE TO [facility]
[2016-11-21 09:10] VITALS: BP 151/80
--- NOTE | 2016-11-21 15:09 | NUR ---
CURRENT IV LEAKING IV FLUID, RESITED TO RIGHT FOREARM 22G.
--- NOTE | 2016-11-21 15:31 | NUR ---
PT SITTING UP IN BED INTERACTING PRINCESS VILLATORO WITH SPEECH
--- NOTE | 2016-11-21 17:40 | NUR ---
PT SITTING UP IN BED VISITING WITH
--- NOTE | 2016-11-21 20:40 | NUR ---
ASSISTED PT WITH SHOWER.
--- NOTE | 2016-11-22 00:42 | NUR ---
PT REST QUIETLY IN BED, EYE CLOSE, BED LOW, CALL LIGHT WITHIN REACH.
--- NOTE | 2016-11-22 02:00 | NUR ---
PT RESTING IN SEMI FOLWER POSITION, EYES CLOSED, PT IN ISOLATION, PRECAUTIONS FOLLOWED. NO S/S OF ACUTE DISTRESS.
[2016-11-22 08:00] VITALS: BP 143/80
--- NOTE | 2016-11-22 08:15 | NUR ---
PT RESTING IN BED WITH EYES OPEN CALL LIGHT IN REACH NO PROBLEMS WILL MONITER
--- NOTE | 2016-11-22 13:27 | NUR ---
Nutrition Follow Up: Pt reported that her appetite is okay. She said that she does not want to receive Ensure anymore. She requested strawberry yogurt with breakfast. Pt is eating 58% meal avg on a regular diet. No BM since admit. Wt stable. Labs reviewed. Meds noted including Remeron. Pt with fair po intake. Rec continue current diet. Will d/c Ensure. Will send yogurt daily. RD following.
--- NOTE | 2016-11-22 14:29 | NUR ---
PT UP IN WHEELCHAIR IN THERAPY GYM TOLERATING WELL WILL MONITER
--- NOTE | 2016-11-22 18:48 | NUR ---
RESTING QUIETLY IN BED CALL LIGHT IN REACH
--- NOTE | 2016-11-22 19:45 | NUR ---
PT RECEIVED UP IN WHEELCHAIR AT BEDSIDE. NO CONCERNS OR NEEDS NOTED AT THIS TIME. CALL LIGHT IN REACH. O2 VIA N/C AT 2LPM. WILL CONTINUE TO OBSERVE.
[2016-11-22 21:39] VITALS: BP 124/68
--- NOTE | 2016-11-22 22:56 | NUR ---
PT IN BED WITH EYES OPEN WATCHING TV. RECEIVED MEDICATIONS PER MAR WITHOUT DIFFICULTY. NO CONCERNS MADE KNOWN. CALL LIGHT IN REACH. WILL CONTINUE TO OBSERVE.
--- NOTE | 2016-11-23 02:09 | NUR ---
PT IN BED WITH EYES CLOSED AND CHEST RISING. IV PIPER/TAZO RUNNING AT 12/5MLS/HR. NO CONCERNS NOTED AT THIS TIME. CALL LIGHT IN REACH. WILL CONTINUE TO OBSERVE.
--- NOTE | 2016-11-23 04:54 | NUR ---
PT IN BED WITH EYES CLOSED AND CHEST RISING. NO CONCERNS NOTED. NO SIGN/SYMPTOMS OF DISTRESS NOTED. CALL LIGHT IN REACH. WILL CONTINUE TO OBSERVE.
[2016-11-23 06:10] LABS: BASOPHILS 0.8 % (0-2); EOSINOPHILS 5.1 % (0-7); HEMATOCRIT 36.8 % (36.0-48.0); HEMOGLOBIN 11.6 g/dL (12-16); IMMATURE GRANULOCYTES 0.2 % (0-5); LYMPHOCYTES 32.6 % (15-50); MCH 28.4 pg (26.0-34.0); MCHC 31.5 g/dL (31.0-37.0); MCV 90.2 fL (80.0-100.0); MEAN PLATELET VOLUME 9.8 fL (7.4-10.4); MONOCYTES 9.4 % (2-11); NEUTROPHILS 51.9 % (40-80); PLATELET COUNT 119 10x3/uL (130-400); RBC 4.08 10x6/uL (4.00-5.40); RDW 18.2 % (11.5-14.5); WBC 5.1 10x3/uL (4.8-10.8)
[2016-11-23 06:32] LABS: CALC OSMOLALITY 287 mosm/kg (275-300); CALCIUM 8.6 mg/dL (8.5-10.1); CARBON DIOXIDE 31.2 mmol/L (21.0-32.0); CHLORIDE - SERUM 107 mmol/L (98-107); GLUCOSE 90 mg/dL (74-106); SODIUM 145 mmol/L (136-145); UREA NITROGEN 9 mg/dL (7-18)
[2016-11-23 06:41] LABS: CREATININE - SERUM 0.6 mg/dL (0.6-1.3); POTASSIUM - SERUM 3.5 mmol/L (3.5-5.1); eGFR NON AFRICAN AMERICAN > 90 mL/min (90-120)
--- NOTE | 2016-11-23 07:27 | NUR ---
PT RESTING IN BED WITH EYES OPEN CALL LIGHT IN REACH WILL MONITER
[2016-11-23 08:17] VITALS: BP 142/65
--- NOTE | 2016-11-23 11:34 | NUR ---
IN THERAPY.WONG WELL.
--- NOTE | 2016-11-23 13:36 | NUR ---
PT UP IN WHEELCHAIR CALL LIGHT IN REACH NO PROBLEMS WILL MONITER
--- NOTE | 2016-11-23 17:01 | NUR ---
CARE TEAM MEETING: PATIENT PROGRESSING IN THERAPY, AT THIS TIME SPOUSE STILL WANTS REFERRAL TO [facility]. WILL CONTINUE TO FOLLOW WITH PATIENT. TENATIVE DC DATE IS 12/01/16.
--- NOTE | 2016-11-23 17:39 | NUR ---
PT RESTING IN BED WITH EYES OPEN CALL LIGHT IN REACH NO PROBLEMS WILL MONITER
--- NOTE | 2016-11-23 19:33 | NUR ---
PT RECEIVED UP IN WHEELCHAIR AT BEDSIDE WATCHING TV. COMPLAINS OF PAIN WITH PAIN MEDICATION SCHEDULED. NO OTHER CONCERNS MADE KNOWN. CALL LIGHT IN REACH. WILL CONTINUE TO OBSERVE.
[2016-11-23 20:35] VITALS: BP 108/62
--- NOTE | 2016-11-23 23:15 | NUR ---
PT IN BED WITH EYES CLOSED AND CHEST RISING. NO CONCERNS NOTED. CALL LIGHT IN REACH.
--- NOTE | 2016-11-24 02:20 | NUR ---
PT IN BED WITH EYES CLOSED AND CHEST RISING. EASILY AROUSED TO VERBAL STIMULI. IV ZOSYN STARTED PER AUG. WILL CONTINUE TO OBSERVE. CALL LIGHT IN REACH.
[2016-11-24 11:36] VITALS: BP 148/81
--- NOTE | 2016-11-24 12:07 | RHP ---
PATIENT: ROGER FARRELL MEDICAL RECORD: [id number] ACCOUNT: [id number] LOCATION:[facility]1115 : 46 ADMISSION DATE: 11/18/16 REHABILITATION HISTORY AND PHYSICAL EXAMINATION POST ADMISSION PHYSICIAN EXAMINATION Post-admission Physical Examination and History and Physical DATE OF ADMISSION: 11/18/2016 ADMITTING DIAGNOSIS: Disuse myopathy HISTORY OF PRESENT ILLNESS: The patient is admitted to the inpatient rehab with a disuse myopathy. She is a 71-year-old female patient who presented to Emergency Room on November 14 with increased weakness. She was found to have UTI. She has rather complicated medical past. She apparently had some type of anoxic brain injury in 2006 as well as possible CVA. She has had several episodes where she has increasing weakness and she goes for a couple months and improved. She has done well until a couple months ago when she started having problems again, she states on admit that she was unable to walk since about July on her own. She required assistance of her , who is no longer able to get her going or to move her. She was found to have a UTI in the Emergency Room, which may be contributing to some of her symptoms. She was admitted at that time for UTI. On exam, it was noted that she had increasing weakness, primarily involving her lower extremities, ____ upper extremities, but not to the extent of her lower. MRI of the spine showed mild degenerative changes at L5-S1 with mild central disc protrusion and mild effacement of thecal sac. She has a 4.6 cm abdominal aneurysm. UA showed ESBL and E. coli and she is on contact isolation. Dr. De Leon was consulted. He is following her trip away. COMORBIDITIES: In this patient include paraspinous muscle atrophy, weakness in all 4 extremities, COPD, emphysema, UTI, decreased muscle strength, fatigue, generalized weakness, AFib, chronic pain, ESBL, migraine headaches, anxiety, depression, history of TB, fibromyalgia, anoxic brain injury, and history of CVA. PAST MEDICAL HISTORY: Significant for TB. She has got a history of intermittent AFib, gastroesophageal reflux disease, chronic pain, fibromyalgia, depression and neurological problems. PAST SURGICAL HISTORY: Previous surgery had been a pneumonectomy. ALLERGIES: MUSCLE RELAXERS, SLEEP AIDS, SULFA, TYLENOL, VICODIN, ABILIFY, STADOL, CODEINE, VALIUM, EPINEPHRINE, LATEX, AND DEMEROL. CURRENT MEDICATIONS: She is on Zosyn 3.375 grams IV q.8 hours. She is on Floranex. She is on omega 3 fish oil. She is on Zetia 10 mg daily, Protonix 40 mg daily, calcium carbonate 500 mg daily, Calmoseptine as needed, Imitrex as needed for headache, propafenone 225 b.i.d. with SR, Lyrica 50 mg t.i.d., Remeron 30 mg q.h.s., Prozac 20 mg t.i.d., Depakote 500 mg b.i.d., Fioricet as needed for headache, Eliquis 5 mg b.i.d., and polyethylene glycol 17 grams in 8 ounces of water daily. HABITS: No alcohol or tobacco use. HISTORY AND PHYSICAL [id number] ROGER FARRELL FAMILY HISTORY: Noncontributory. SOCIAL HISTORY: The patient hopes to return back home with her . REVIEW OF SYSTEMS: GENERAL: Does complain of weakness. HEENT: Denies cold, cough, or congestion. CARDIOVASCULAR: Denies chest pain. PHYSICAL EXAMINATION: VITAL SIGNS: Stable, afebrile. GENERAL: A well-developed female, in no acute distress, alert upon exam. HEENT: Normocephalic, atraumatic. Mucosa appeared moist. TMs appear shiny and mobile. NECK: Supple, with no lymphadenopathy. LUNGS: Clear at this time. HEART: Regular rate and rhythm. ABDOMEN: Benign. EXTREMITIES: No clubbing, cyanosis or edema. NEUROLOGIC: Does have noted weakness. LABORATORY DATA: Her white count is 6.4, H&H of 15 and 48, and platelet count is 139. Her sodium is 142, potassium 3.8, BUN and creatinine of 6 and 0.6 and blood sugar is noted to be 90. ASSESSMENT: This is a 71-year-old female patient admitted to rehab with a working diagnosis of disuse myopathy and also history of remote anoxic brain injury. The patient has potential to make improvement. We instituted the following multidisciplinary therapies including to, but not limited to physical, occupational, respiratory, speech, nutritional services, prosthetics and orthotics. Given her complex condition and risk for more complications, rehabilitation services cannot be provided at a low level of care such as a assisted facility. PLAN: 1. Admit to [facility] for intensive inpatient therapy to include the following disciplines: A. Physical therapy to improve gait, all transfer skills and bed mobility to a modified independent level. B. Occupational therapy to improve activities of daily living to a modified independent level. C. Case management to assist with discharge planning and placement options. D. Nutrition to assist with nutritional needs. E. Rehabilitation nursing to assist in monitoring the patient's underlying medical conditions and to assist with any type of bowel or bladder management. 2. The patient's current medications and medical care will be continued. 3. The patient will be placed on standard fall precautions. 4. The patient's estimated length of stay is approximately 7-10 days. 5. Discuss this patient during care team staff meeting this week. TRANSINT:[id number] Voice Confirmation ID: [id number] DOCUMENT ID: [id number] JANIS notes whether there has been none or any medical/functional change since admission: HISTORY AND PHYSICAL [id number] ROGER FARRELL attests patient continues to be appropriate for IRF: - MARIBETH FRANCISCO MD at 1207 CC: [id number] DICTATION DATE: 11/19/16 1409 ELEVATOR TROUBLESHOOTER: 11/20/16 1118 ADM IN [facility] [address] [place] [address]
[2016-11-24 20:00] VITALS: BP 130/81
--- NOTE | 2016-11-24 23:06 | NUR ---
PT. IN BED LYING ON HER LEFT SIDE WITH EYES CLOSED AND RESP. DEEP AND EVEN. CALL LIGHT WITHIN REACH.
--- NOTE | 2016-11-25 03:03 | NUR ---
PT. IN BED WITH HOB UP FOR COMFORT WITH EYES CLOSED AND RESP. DEEP AND EVEN. IV CONTINUES TO INFUSE VIA PUMP TO RIGHT FOREARM WITHOUT ANY ALARMS. CALL LIGHT WITHIN REACH FOR NEEDS.
--- NOTE | 2016-11-25 07:44 | NUR ---
RESTING QUIETLY IN BED CALL LIGHT IN REACH
--- NOTE | 2016-11-25 10:33 | NUR ---
PATIENT CONTINUES IN CONTACT ISOLATION. SITTING UP IN WHEELCHAIR AT BEDSIDE. IV ANTIBOITIC RUNNING RIGHT FOREARM, IV SITE
[2016-11-25 11:18] VITALS: BP 142/72
--- NOTE | 2016-11-25 12:41 | NUR ---
PATIENT SITTING UP IN WHEELCHAIR AT BEDSIDE TO EAT LUNCH. VOICES NO NEEDS
--- NOTE | 2016-11-25 14:35 | NUR ---
PATIENT ALERT/ORIENT X4. USING CALL LIGHT FOR NEEDS. CONTINUES IN CONTACT ISOLATION. AMBULATES WITH STAND BY ASST
--- NOTE | 2016-11-25 18:22 | NUR ---
VISITING IN ROOM. ISOLOATION PRECAUSIONS FOLLOWED
--- NOTE | 2016-11-25 19:28 | NUR ---
PT RECEIVED IN WHEELCHAIR AT BEDSIDE READING BOOK. COMPLAINS OF 9/10 PAIN TO HIP WITH PAIN MEDICATION SCHEDULED. NO SIGN/SYMPTOMS OF DISTRESS NOTED. NO OTHER NEEDS OR CONCERNS NOTED AT THIS TIME. CALL LIGHT IN REACH. WILL CONTINUE TO OBSERVE.
--- NOTE | 2016-11-26 01:29 | NUR ---
PT IN BED WITH EYES CLOSED AND CHEST RISING. NO SIGN/SYMPTOMS OF DISTRESS NOTED. CALL LIGHT IN REACH. WILL CONTINUE TO OBSERVE.
[2016-11-26 03:17] VITALS: BP 120/70
--- NOTE | 2016-11-26 03:33 | NUR ---
PT IN BED WITH EYES CLOSED AND CHEST RISING. IV ZOSYN AT 12.5ML/HR RUNNING WITHOUT DIFFICULTY. NO CONCERNS MADE KNOWN. CALL LIGHT IN REACH.
--- NOTE | 2016-11-26 07:30 | NUR ---
PT LYING IN BED ON RIGHT SIDE EYES CLOSED RESTING
[2016-11-26 08:00] VITALS: BP 134/81
--- NOTE | 2016-11-26 12:22 | NUR ---
PT SITTING UP IN W/C READING BOOK CALL LIGHT IN REACH
--- NOTE | 2016-11-26 15:40 | NUR ---
ASSISTED PT TO RESTROOM, TRANSFERRED WITH MIN ASSIST
--- NOTE | 2016-11-26 18:01 | NUR ---
SITTING IN W/C VISITING WITH
--- NOTE | 2016-11-26 18:32 | NUR ---
RESTING QUIETLY IN BED CALL LIGHT IN REACH
[2016-11-26 19:00] VITALS: BP 114/66
--- NOTE | 2016-11-26 19:35 | NUR ---
PT RECEIVED IN WHEELCHAIR AT BEDSIDE READING BOOK. COMPLAINS OF PAIN TO HIP AND HEAD. PAIN MEDICATION SCHEDULED WITH PT AWARE OF SCHEDULE. NO OTHER CONCERNS MADE KNOWN. CALL LIGHT IN REACH. WILL CONTINUE TO OBSERVE.
--- NOTE | 2016-11-27 00:47 | NUR ---
PT IN BED WITH EYES CLOSED AND CHEST RISING. HS MEDICATIONS HAVE BEEN GIVEN PER MAR WITHOUT DIFFICULTY. ASSISTED TO BATHROOM BEFORE ASSISTED TO BED. NO CONCERNS NOTED AT THIS TIME. CALL LIGHT IN REACH. WILL CONTINUE TO OBSERVE.
--- NOTE | 2016-11-27 04:32 | NUR ---
PT IN BED WITH EYES CLOSED AND CHEST RISING. NO SIGN/SYMPTOMS OF DISTRESS NOTED. CALL LIGHT IN REACH. WILL CONTINUE TO OBSERVE.
[2016-11-27 08:00] VITALS: BP 151/100
--- NOTE | 2016-11-27 08:33 | NUR ---
SITTING UP EATING BREAKFAST DENIES NEEDS CALL LIGHT IN REACH
--- NOTE | 2016-11-27 10:03 | NUR ---
PATIENT REMAINS IN CONTACT ISOLATION. URINE. PATIENT IS ALERT/ORIENT X4. OXYGEN ON AT 2L PER N/C. PATIENT USING CALL LIGHT FOR NEEDS, CALL LIGHT WITHIN REACH. ABNTIBIOTIC IV RUNNING IN RT FA PERIPHERAL LINE
--- NOTE | 2016-11-27 12:27 | NUR ---
PATIENT HELPED INTO BATHROOM. MOD TO MAX ASST OF ONE FRO WHEELCHAIR ONTO TOILET. PATIENT NEEDED HELP WITH LISA CARE. INCONTINACE OF URINE.
--- NOTE | 2016-11-27 15:34 | NUR ---
PATIENT REMAINS SITTING UP IN WHEELCHAIR AT BEDSIDE. READING A BOOK. CALL LIGHT WITHIN REACH. VOICES NO NEEDS
--- NOTE | 2016-11-27 17:51 | NUR ---
SALINE LOCK IN RIGHT WRIST INFILTRATED. REMOVED. TWO ATTEMPS TO RESTART SALINE LOCK FAILED. CHECO PURCELL, SUPERVISIOR NOTIFIED. STATED HE WILL COME DOWN AND ASST.
--- NOTE | 2016-11-27 19:37 | NUR ---
PT RECEIVED IN WHEELCHAIR AT BEDSIDE. COMPLAINS OF PAIN TO HIP AND HEAD WITH SCHEDULED PAIN MEDICATION COMING DUE. NO OTHER NEEDS MADE KNOWN. CALL LIGHT IN REACH. WILL CONTINUE TO OBSERVE.
--- NOTE | 2016-11-27 23:49 | NUR ---
PT UP IN WHEELCHAIR WATCHING TV. NO CONCERNS OR NEEDS MADE KNOWN CALL LIGHT IN REACH. WILL CONTINUE TO OBSERVE.
[2016-11-28 03:21] VITALS: BP 92/53
--- NOTE | 2016-11-28 03:44 | NUR ---
PT IN BED WITH EYES CLOSED AND CHEST RISING. CONTINUES IV ZOSYN WITHOUT DIFFICULTY. NO CONCERNS NOTED AT THIS TIME. CALL LIGHT IN REACH.
--- NOTE | 2016-11-28 06:42 | NUR ---
PT IN BED WITH EYES CLOSED AND CHEST RISING. RECEIVED AM MEDICATIONS WITHOUT DIFFICULTY. NO CONCERNS NOTED. CALL LIGHT IN REACH.
[2016-11-28 07:33] LABS: BASOPHILS 1.2 % (0-2); EOSINOPHILS 5.6 % (0-7); HEMATOCRIT 37.3 % (36.0-48.0); HEMOGLOBIN 11.6 g/dL (12-16); IMMATURE GRANULOCYTES 0.4 % (0-5); LYMPHOCYTES 35.7 % (15-50); MCH 28.4 pg (26.0-34.0); MCHC 31.1 g/dL (31.0-37.0); MCV 91.2 fL (80.0-100.0); MEAN PLATELET VOLUME 9.9 fL (7.4-10.4); MONOCYTES 8.8 % (2-11); NEUTROPHILS 48.3 % (40-80); RBC 4.09 10x6/uL (4.00-5.40); RDW 17.8 % (11.5-14.5)
[2016-11-28 07:42] LABS: PLATELET COUNT 186 10x3/uL (130-400)
[2016-11-28 07:50] LABS: CALC OSMOLALITY 284 mosm/kg (275-300); CALCIUM 8.5 mg/dL (8.5-10.1); CARBON DIOXIDE 32.2 mmol/L (21.0-32.0); CHLORIDE - SERUM 108 mmol/L (98-107); CREATININE - SERUM 0.6 mg/dL (0.6-1.3); GLUCOSE 102 mg/dL (74-106); POTASSIUM - SERUM 3.6 mmol/L (3.5-5.1); SODIUM 144 mmol/L (136-145); UREA NITROGEN 7 mg/dL (7-18); eGFR NON AFRICAN AMERICAN > 90 mL/min (90-120)
--- NOTE | 2016-11-28 08:17 | NUR ---
SITTING UP EATING BREAKFAST DENIES NEEDS CALL LIGHT IN REACH
--- NOTE | 2016-11-28 09:00 | NUR ---
PATIENT REMAINS IN CONTACT ISOLOATION FOR URINE.
--- NOTE | 2016-11-28 10:07 | NUR ---
PATIENTS IV INFILTRATED. LEFT HAND. DR. Radu FRANCISCO INTO SEE PATIENT. NEW ORDERS RECEIVED
--- NOTE | 2016-11-28 10:30 | NUR ---
SALINE LOCK INSERTED INTO RIGHT FOREARM.
[2016-11-28 12:21] VITALS: BP 145/84
--- NOTE | 2016-11-28 13:16 | NUR ---
PATIENTS IN ROOM VISITING. ISOLATION PRECAUSIONS MAINTAINED.
--- NOTE | 2016-11-28 17:48 | NUR ---
PATIENT HELPED INTO BATHROOM. MAX ASST OF ONE PERSON FROM WHEELCHAIR TO TOILET. NEEDED HELP WITH LISA CARE
[2016-11-28 18:59] VITALS: BP 108/57
--- NOTE | 2016-11-28 19:55 | NUR ---
PT RECEIVED IN BED WITH EYES OPEN WATCHING TV. NO CONCERN MADE KNOWN. CALL LIGHT IN REACH.
--- NOTE | 2016-11-29 00:10 | NUR ---
PT IN BED WITH EYES CLOSED AND CHEST RISING. NO CONCERNS NOTED. CALL LIGHT IN REACH.
--- NOTE | 2016-11-29 03:29 | NUR ---
PT IN BED WITH EYES CLOSED AND CHEST RISING. NO CONCERNS NOTED AT THIS TIME. CALL LIGHT IN REACH.
--- NOTE | 2016-11-29 07:25 | NUR ---
INTRODUCED SELF TO PT, PT STATES NO NEW NEEDS AT THIS TIME, WILL CONTINUE TO MONITOR, CALL LIGHT WITHIN REACH.
--- NOTE | 2016-11-29 09:10 | NUR ---
MORNING MEDICATION GIVEN, PT TOLERATED WELL, WILL CONTINUE TO MONITOR, CALL LIGHT WITHIN REACH.
--- NOTE | 2016-11-29 10:21 | NUR ---
PT IN PT.
[2016-11-29 10:33] VITALS: BP 138/82
--- NOTE | 2016-11-29 11:49 | NUR ---
PT SITTING UP IN LINDA WATCHING TV, PT STATES NO NEEDS AT THIS TIME, WILL CONTINUE TO MONITOR, CALL LIGHT WITHIN REACH.
--- NOTE | 2016-11-29 13:53 | NUR ---
PT WITH SPEACH THERAPY. WILL CONTINUE TO MONITOR, WILL CONTINUE TO MONITOR.
--- NOTE | 2016-11-29 17:25 | NUR ---
PT VISITING WITH , PT STATES NO NEW NEEDS AT THIS TIME, WILL CONTINUE TO MONITOR, CALL LIGHT WITHIN REACH.
--- NOTE | 2016-11-29 17:49 | NUR ---
SITTING UP IN WC EATING SUPPER. AT BEDSIDE.
--- NOTE | 2016-11-29 19:30 | NUR ---
PT. SITTING UP IN W/C WATCHING TV. ASSESSMENT COMPLETED. PT. UNDERSTANDS WHY SHE IS IN ISOLATION FOR THE E.COLI IN HER URINE. NO VOICED NEEDS AT THIS TIME AND SHE HAS HER CALL LIGHT WITHIN REACH.
[2016-11-29 21:51] VITALS: BP 110/62
--- NOTE | 2016-11-29 23:19 | NUR ---
PT. IM BED WITH HOB UP SLIGHTLY FOR COMFORT WITH EYES CLOSED AND RESP. EVEN. CALL LIGHT WITHIN REACH.
--- NOTE | 2016-11-30 00:20 | NUR ---
RESTING IN BED, EYES CLOSED. HOB UP 30 DEGREES. NO DISTRESS NOTED.
--- NOTE | 2016-11-30 03:03 | NUR ---
PT. IN BED WITH HOB UP FOR COMFORT WITH EYES CLOSED AND RESP. DEEP AND EVEN. IV ANTIBIOTIC CONTINUES TO INFUSE VIA RT. FA PERIPHERAL I.V. SITE VIA PUMP WITHOUT ANY ALARMS. CALL LIGHT REMAINS WITHIN REACH.
[2016-11-30 05:52] LABS: HEMATOCRIT 38.8 % (36.0-48.0); HEMOGLOBIN 12.4 g/dL (12-16); LYMPHOCYTES 35.3 % (15-50); MCH 28.2 pg (26.0-34.0); MEAN PLATELET VOLUME 9.8 fL (7.4-10.4); NEUTROPHILS 50.5 % (40-80); PLATELET COUNT 198 10x3/uL (130-400); RBC 4.39 10x6/uL (4.00-5.40); RDW 17.6 % (11.5-14.5); WBC 5.7 10x3/uL (4.8-10.8)
[2016-11-30 06:00] LABS: CALC OSMOLALITY 285 mosm/kg (275-300); CALCIUM 8.8 mg/dL (8.5-10.1); CARBON DIOXIDE 30.6 mmol/L (21.0-32.0); CHLORIDE - SERUM 107 mmol/L (98-107); CREATININE - SERUM 0.7 mg/dL (0.6-1.3); GLUCOSE 75 mg/dL (74-106); POTASSIUM - SERUM 3.7 mmol/L (3.5-5.1); SODIUM 145 mmol/L (136-145); UREA NITROGEN 7 mg/dL (7-18); eGFR NON AFRICAN AMERICAN 88 mL/min (90-120)
[2016-11-30 06:01] LABS: MCV 88.4 fL (80.0-100.0)
--- NOTE | 2016-11-30 06:22 | NUR ---
PT. LYING IN BED WITH HOB UP FOR COMFORT WITH EYES CLOSED AND RESP. EVEN. PT. AWAKENS EASILY FOR MORNING MEDICATIONS AND HAS NO VOICED NEEDS AT THIS TIME. CALL LIGHT WITHIN REACH.
--- NOTE | 2016-11-30 08:00 | NUR ---
SITTING UP IN WC EATING BREAKFAST.CL IN REACH.FAMILY AT BEDSIDE VISITING.
[2016-11-30 09:28] VITALS: BP 141/94
--- NOTE | 2016-11-30 09:33 | NUR ---
PATIENT IS IN CONTACT ISOLATION FOR URINE. ALERT/ORIENT X4. USING CALL LIGHT FOR NEEDS. CALL LIGHT WITHIN REACH. DR. Radu FRANCISCO INTO SEE PATIENT. NO NEW ORDERS RECEIVED
--- NOTE | 2016-11-30 09:55 | NUR ---
patient has been accepted to [facility] and will discharge there per facility van on 12/01/16 at 11:30. will continue to follow with patient
--- NOTE | 2016-11-30 12:35 | NUR ---
SALINE LOCK IN RIGHT FOREARM OUT. NEW SALINE LOCK STARTED IN LEFT FOREARM. 22 YESENIA
--- NOTE | 2016-11-30 13:44 | NUR ---
PATIENT WORKING IN REHAB ROOM WITH PHYSICAL THERAPIST. ISOLOATION PRECAUSIONS MAINTAIN IN THERAPY. PATIENT DENIES ANY PAIN/DISC AT THIS TIME
--- NOTE | 2016-11-30 17:12 | NUR ---
PATIENT HAS SCHEDULED FIORICET FOR HEADACHES. STATES RELIEF FROM.
--- NOTE | 2016-11-30 19:50 | NUR ---
PT SIT IN WEELCHAIR AND WATCH TV.
--- NOTE | 2016-12-01 00:26 | NUR ---
PT REST IN BED, EYE CLOSE,BED LOW, CALL LIGHT WITHIN REACH.
--- NOTE | 2016-12-01 02:50 | NUR ---
RESTING IN BED, EYES CLOSED. HOB UP 30 DEGREES. ZOSYN IV INFUSING PER PUMP ON EXTENDED RATE OF 12.5ML/HR. NO DISTRESS EVIDENT.
[2016-12-01 06:36] VITALS: BP 156/82
--- NOTE | 2016-12-01 06:46 | NUR ---
RESTING QUIETLY IN BED CALL LIGHT IN REACH
[2016-12-01 09:00] VITALS: BP 125/70
--- NOTE | 2016-12-01 09:03 | NUR ---
patient discharging to [facility] today and will transport there via facility van. Dr. Jack is patient PCP and facility will make a follow up appointment for her when she is discharged from there. Patient choice form for SNF and IMFM form signed, explained and filed in chart. at bedside.
--- NOTE | 2016-12-01 11:45 | NUR ---
PT DISCHARGED WITH [facility] VIA WHEELCHAIR.
== END 2016-12-01 11:43 | DRG 92 ==
LOC: D.REHAB 15:18
PROVIDERS: ADMIT Emergency Medicine
DX: G72.89 Other specified myopathies (principal); N39.0 Urinary tract infection, site not specified; R53.1 Weakness; J43.9 Emphysema, unspecified; R53.83 Other fatigue; I48.91 Unspecified atrial fibrillation; G89.29 Other chronic pain; F41.8 Other specified anxiety disorders; K21.9 Gastro-esophageal reflux disease without esophagitis; M51.26 Other intervertebral disc displacement, lumbar region

== ENCOUNTER 2017-02-04 21:12 | Inpatient (IN) | payer MEDICARE, OTHER ==
[~2017-02-04] VITALS: Ht 157.5 cm; Wt 53.2 kg
[2017-02-04 22:37] LABS: BASOPHILS 0.5 % (0-2); EOSINOPHILS 2.6 % (0-7); HEMATOCRIT 36.8 % (36.0-48.0); HEMOGLOBIN 12.4 g/dL (12-16); IMMATURE GRANULOCYTES 0.5 % (0-5); LYMPHOCYTES 29.4 % (15-50); MCH 29.2 pg (26.0-34.0); MCHC 33.7 g/dL (31.0-37.0); MCV 86.6 fL (80.0-100.0); MEAN PLATELET VOLUME 9.5 fL (7.4-10.4); PLATELET COUNT 232 10x3/uL (130-400); RBC 4.25 10x6/uL (4.00-5.40); RDW 13.1 % (11.5-14.5); WBC 5.8 10x3/uL (4.8-10.8)
[2017-02-04 22:49] LABS: ALKALINE PHOSPHATASE 121 U/L (46-116); ALT (SGPT) 45 U/L (10-68); BILIRUBIN - TOTAL 0.17 mg/dL (0.2-1.3); CALC OSMOLALITY 254 mosm/kg (275-300); CALCIUM 8.7 mg/dL (8.5-10.1); CARBON DIOXIDE 25.8 mmol/L (21.0-32.0); CHLORIDE - SERUM 92 mmol/L (98-107); CREATININE - SERUM 0.7 mg/dL (0.6-1.3); POTASSIUM - SERUM 4.2 mmol/L (3.5-5.1); PROTEIN - SERUM 7.2 g/dL (6.4-8.2); SODIUM 127 mmol/L (136-145); UREA NITROGEN 10 mg/dL (7-18); VALPROIC ACID (DEPAKOTE) 50.8 ug/mL (50.0-100.0); eGFR NON AFRICAN AMERICAN 88 mL/min (90-120)
[2017-02-04 22:53] LABS: GLUCOSE 118 mg/dL (74-106)
[2017-02-04 22:53] LABS: APPEARANCE CLEAR (CLEAR); BILIRUBIN NEGATIVE (NEGATIVE); COLOR YELLOW (YELLOW); GLUCOSE NEGATIVE (NEGATIVE); KETONE NEGATIVE (NEGATIVE); LEUKOCYTE ESTERASE NEGATIVE (NEGATIVE); NITRITE NEGATIVE (NEGATIVE); PROTEIN NEGATIVE (NEGATIVE); SPECIFIC GRAVITY 1.015 (1.005-1.020); UROBILINOGEN NORMAL (NORMAL)
--- NOTE | 2017-02-05 00:30 | NUR ---
ASSESSMENT PER ADMIT FLOW SHEET.PT VERY SLOW TO RESPOND VERBALLY. AT BEDSIDE TO ASSIST WITH MEDS AND HISTORY,HE IS POA.REQUESTED COPY OF POA PAPERS.PT WITHOUT SKIN BREAKDOWN ,BUT REDNESS IS NOTED TO BILATERAL INNER BUTTOCK.RAISED AREA NOTED TO LEFT INNER BUTTOCK.PT IS INCONTINENT OF URINE AND BED HAS BEEN CHANGED.GOWN CHANGED.FALL PREVENTION INTITIATED WITH BED ALARM BED ,YELLOW BAND AND SOCKS PLACED IN ROOM.DOOR OPEM TO MONITOR.
[2017-02-05 01:06] VITALS: BP 108/59; Ht 157.5 cm; Wt 53.2 kg
[2017-02-05 05:17] LABS: EOSINOPHILS 2.8 % (0-7); HEMATOCRIT 39.9 % (36.0-48.0); HEMOGLOBIN 13.1 g/dL (12-16); IMMATURE GRANULOCYTES 0.5 % (0-5); LYMPHOCYTES 38.8 % (15-50); MCH 28.9 pg (26.0-34.0); MCHC 32.8 g/dL (31.0-37.0); MCV 88.1 fL (80.0-100.0); MEAN PLATELET VOLUME 9.7 fL (7.4-10.4); NEUTROPHILS 47.9 % (40-80); PLATELET COUNT 192 10x3/uL (130-400); RBC 4.53 10x6/uL (4.00-5.40); RDW 13.4 % (11.5-14.5)
[2017-02-05 05:37] LABS: CALC OSMOLALITY 263 mosm/kg (275-300); CALCIUM 8.7 mg/dL (8.5-10.1); CARBON DIOXIDE 29.1 mmol/L (21.0-32.0); CHLORIDE - SERUM 97 mmol/L (98-107); CREATININE - SERUM 0.7 mg/dL (0.6-1.3); GLUCOSE 96 mg/dL (74-106); POTASSIUM - SERUM 4.3 mmol/L (3.5-5.1); SODIUM 133 mmol/L (136-145); eGFR NON AFRICAN AMERICAN 88 mL/min (90-120)
[2017-02-05 05:38] LABS: UREA NITROGEN 6 mg/dL (7-18)
--- NOTE | 2017-02-05 07:35 | NUR ---
AWAKE AND ALERT AT THIS TIME. RESPIRATIONS EVEN AND NON LABORED. OXYGEN ON 1.5L VIA NC. BED ALARM ON AND SRX2. INCONTINENCE CARE PROVIDED. CALL LIGHT IN REACH, WILL CONTINUE WITH PLAN OF CARE.
[2017-02-05 08:15] VITALS: BP 128/75
--- NOTE | 2017-02-05 09:28 | NUR ---
SCHEDULED MEDICATIONS ADMINISTERED AT THIS TIME. AT BEDSIDE. INCONTINENCE CARE PROVIDED AT THIS TIME. CALL LIGHT IN REACH AND BED ALARM ON. WILL CONTINUE WITH PLAN OF CARE.
[2017-02-05 11:17] VITALS: BP 123/68
[2017-02-05 15:14] VITALS: BP 100/61
[2017-02-05 19:00] VITALS: BP 129/67
--- NOTE | 2017-02-05 19:35 | NUR ---
ASSESSMENT PER FLOW SHEET.MORE ALERT TODAY WITH MUCH LESS CONFUSION.SHE STATES HER PAIN IS 8/10 SCALE,HEADACHE THAT SHE HAS FREQUENTLY.SHE IS WITHOUT DISTRESS.SLIGHT REDNESS NOTED TO BILATERAL INNER BUTTOCKS,WITHOUT BREAKDOWN.
[2017-02-06 00:37] VITALS: BP 139/71
--- NOTE | 2017-02-06 01:24 | NUR ---
RESTING WITHOUT SIGNS OF DISTRESS.
[2017-02-06 04:00] VITALS: BP 161/91
--- NOTE | 2017-02-06 07:01 | NUR ---
COMPLAINS OF NAUSEA WITH EMESIS. THINKS IT IS SECONDARY TO A HEADACHE. PRN ZOFRAN ADMINISTERED TO LEFT FOREARM IV AT THIS TIME. IV SITE PATENT. MENDEL BLAKELY IN ROOM CLEANING PATIENT. BED ALARM AND SCD'S ON. CALL LIGHT IN REACH, DOOR OPEN. WILL CONTINUE WITH PLAN OF CARE.
[2017-02-06 07:34] LABS: BASOPHILS 0.4 % (0-2); EOSINOPHILS 2.1 % (0-7); HEMATOCRIT 38.8 % (36.0-48.0); HEMOGLOBIN 12.5 g/dL (12-16); IMMATURE GRANULOCYTES 0.2 % (0-5); LYMPHOCYTES 16.5 % (15-50); MCH 28.8 pg (26.0-34.0); MCHC 32.2 g/dL (31.0-37.0); MCV 89.4 fL (80.0-100.0); MEAN PLATELET VOLUME 9.1 fL (7.4-10.4); MONOCYTES 8.1 % (2-11); NEUTROPHILS 72.7 % (40-80); PLATELET COUNT 203 10x3/uL (130-400); RBC 4.34 10x6/uL (4.00-5.40); RDW 13.4 % (11.5-14.5); WBC 4.8 10x3/uL (4.8-10.8)
[2017-02-06 07:48] VITALS: BP 158/83
--- NOTE | 2017-02-06 07:48 | NUR ---
PRN IMITREX ADMINISTERED FOR MIGRAIN AT THIS TIME.
[2017-02-06 07:53] LABS: CALC OSMOLALITY 273 mosm/kg (275-300); CALCIUM 8.5 mg/dL (8.5-10.1); CARBON DIOXIDE 30.3 mmol/L (21.0-32.0); CHLORIDE - SERUM 100 mmol/L (98-107); GLUCOSE 137 mg/dL (74-106); POTASSIUM - SERUM 3.7 mmol/L (3.5-5.1); SODIUM 137 mmol/L (136-145); UREA NITROGEN 6 mg/dL (7-18)
[2017-02-06 07:57] LABS: CREATININE - SERUM 0.5 mg/dL (0.6-1.3); eGFR NON AFRICAN AMERICAN > 90 mL/min (90-120)
--- NOTE | 2017-02-06 09:39 | NUR ---
SCHEDULED MEDICATIONS ADMINISTERED AT THIS TIME PER ORDER. PRN FIORCET ADMINISTERED FOR MIGRAIN HEADACHE PAIN. PT DENIES NAUSEA AT THIS TIME. RESPIRATIONS EVEN AND NON LABORED. BED ALARM AND SCD'S ON. CALL LIGHT IN REACH, WILL CONTINUE WITH PLAN OF CARE.
--- NOTE | 2017-02-06 10:41 | NUR ---
Patient Name: ROGER HEWITT Admission Status: ER Accout number: [id number] Admission Date: 02-04-2017 : 1945 Admission Diagnosis: Attending: PANDA Current LOS: 2 Anticipated DC Date: Planned Disposition: Home Primary Insurance: MEDICARE A & B Discharge Planning Comments: CM spoke with (Khai Hewitt) to assess discharge planning needs. stated that the patient is a totally dependent on him and their son (maribeth hewitt) for her ADL's. She has to be transferred via EMS. Khai states that they have the follow at home: bed side table, chair lift, o2 with concentrator, elevated toilet seat, bedside commode, shower chair, walker, wheelchair x 2. They ues [facility]. also states that he thinks that he thought it would be better if she could go back down to in patient rehab before she went home. She has been there in the past. He also stated that he does not want/need home health at this time, that they are doing well. Patient will be going to [facility] for outpatient therapy at some point, he has to set it up. Patient has also been a patient at [facility] in the past. CM will continue to follow and assist as needed. PCP: Matheus Howell on [address] [facility] Khai Hewitt ([phone]) Maribeth Hewitt (son) Promotions Producer: Ilsa No * Is the patient Alert and Oriented? Yes 0 * PCP MATHEUS CAMACHO 0 * Pharmacy [facility] [address] 0 * Preadmission Environment Home with Family 0 * ADLs Total Dependent 0 * Equipment Bedside Commode Elevated Tol[place] Seat Oxygen Rolling Walker Shower Chair Tub Bench Walker Wheelchair 0 * Other Equipment BED SIDE TABLE CHAIR LIFT O2 CONCENTRATOR 0 * List name and contact numbers for known caregivers / representatives who currently or will assist patient after discharge: KHAI HEWITT () [phone] MARIBETH HEWITT (SON) 0 * Community resources currently utilized None 0 * Please name any agencies selected above. [facility] 0 * Additional services required to return to the preadmission environment? Yes 0 * Can the patient safely return to the preadmission environment? Yes 0 * Has this patient been hospitalized within the prior 30 days at any hospital? No 0 Grand Total: 0
--- NOTE | 2017-02-06 10:52 | NUR ---
PRN IMITREX ADMINISTERED FOR MIGRAIN AT THIS TIME.
--- NOTE | 2017-02-06 10:55 | NUR ---
Rehab Note- Acute Rehab Prescreen order received. Awaiting Physical therapy eval for physical ability. Will follow at this time. Thank you for this referral! Jenifer Dennis RN Clinical Liaison, [facility] Rehab
[2017-02-06 11:34] VITALS: BP 155/79
--- NOTE | 2017-02-06 14:49 | NUR ---
PRN FIORCET ADMINISTERED PER ONE TIME ORDER FROM JACQUELIN NEWTON APN FOR MIGRAIN HEADACHE.
[2017-02-06 16:01] VITALS: BP 129/70
[2017-02-06 19:00] VITALS: BP 115/68
--- NOTE | 2017-02-06 19:56 | NUR ---
REC'D. WALKING IN [place]ALL[place]AY. WONG. WELL DENIES NAUSEA OR VOMITTING AT PRESENT TIME.STATES HEADACHE BETTER. WILL CONTINUE TO MONITOR FOR ANY CHGES. AND FOLLOW CURRENT PLAN OF CARE
[2017-02-07] VITALS: BP 126/79
[2017-02-07 04:00] VITALS: BP 150/83
--- NOTE | 2017-02-07 08:33 | NUR ---
PT SEEN THIS AM. PLACED ON BEDPAIN AND USED FOR URINE. SCD ON BILAT. BED ALARM FOR SAFETY. SPOUSE AT BEDSIDE. CALL LIGHT IN REACH
[2017-02-07 08:42] VITALS: BP 158/78
--- NOTE | 2017-02-07 09:10 | NUR ---
REPORT RECEIVED FROM BINH RAMON
--- NOTE | 2017-02-07 09:41 | NUR ---
ESGIC ADMINISTERED WITH AM MEDS. SCDs TO BLE. CALL LIGHT IN REACH.
--- NOTE | 2017-02-07 10:55 | NUR ---
TAKEN OFF OF BEDPAN. LARGE BM NOTED AND 300 CC OF URINE. REPOSITIONED ON RIGHT SIDE AT THIS TIME.
[2017-02-07 11:14] LABS: BASOPHILS 0.2 % (0-2); EOSINOPHILS 1.5 % (0-7); HEMATOCRIT 38.1 % (36.0-48.0); HEMOGLOBIN 12.1 g/dL (12-16); LYMPHOCYTES 30.7 % (15-50); MCH 28.7 pg (26.0-34.0); MCHC 31.8 g/dL (31.0-37.0); MCV 90.3 fL (80.0-100.0); MEAN PLATELET VOLUME 9.6 fL (7.4-10.4); MONOCYTES 7.2 % (2-11); NEUTROPHILS 60.4 % (40-80); PLATELET COUNT 235 10x3/uL (130-400); RBC 4.22 10x6/uL (4.00-5.40); RDW 13.2 % (11.5-14.5); WBC 4.6 10x3/uL (4.8-10.8)
[2017-02-07 11:28] LABS: ALBUMIN 2.6 g/dL (3.4-5.0); ALKALINE PHOSPHATASE 104 U/L (46-116); ALT (SGPT) 35 U/L (10-68); BILIRUBIN - TOTAL 0.18 mg/dL (0.2-1.3); CALC OSMOLALITY 271 mosm/kg (275-300); CALCIUM 8.5 mg/dL (8.5-10.1); CARBON DIOXIDE 29.5 mmol/L (21.0-32.0); CHLORIDE - SERUM 101 mmol/L (98-107); CREATININE - SERUM 0.6 mg/dL (0.6-1.3); GLUCOSE 148 mg/dL (74-106); POTASSIUM - SERUM 3.8 mmol/L (3.5-5.1); PROTEIN - SERUM 6.6 g/dL (6.4-8.2); SODIUM 136 mmol/L (136-145); eGFR NON AFRICAN AMERICAN > 90 mL/min (90-120)
[2017-02-07 11:31] LABS: UREA NITROGEN 3 mg/dL (7-18)
--- NOTE | 2017-02-07 12:55 | NUR ---
OFFERED IMITREX FOR HEADACHE WHICH IS STILL AT A 10 BUT PATIENT REFUSED AT THIS TIME.
[2017-02-07 14:10] VITALS: BP 131/79
--- NOTE | 2017-02-07 14:14 | NUR ---
INCONTINENT OF URINE. PARTIAL BED BATH, LINENS CHANGED, AND PATIENT REPOSITIONED ON SIDE. TATE APPLIED TO BUTTOCKS. IV TUBING CHANGED PER HOSPITAL POLICY.
--- NOTE | 2017-02-07 14:14 | NUR ---
Rehab Note- The patient contnues to refuse to participate with Physical Therapy at this time. Will continue to follow. Jenifer Dennis RN Clinical Liaison, [facility] Rehab
--- NOTE | 2017-02-07 15:00 | NUR ---
PROZAC AND FIORICET PO. CALL LIGHT IN REACH.
[2017-02-07 16:53] VITALS: BP 142/72
--- NOTE | 2017-02-07 17:45 | NUR ---
EATING SUPPER AT THIS TIME. DENIES NEEDS. CALL LIGHT IN REACH.
--- NOTE | 2017-02-07 18:48 | NUR ---
NO CHANGES IN INITIAL ASSESSMENT. CALL LIGHT IN REACH. SCDs TO BLE. BED ALARM ON. CALL LIGHT IN REACH. WILL CONTINUE WITH PLAN OF CARE.
[2017-02-07 19:00] VITALS: BP 132/85
[2017-02-08] VITALS: BP 136/87
--- NOTE | 2017-02-08 03:01 | NUR ---
2100)FIORECT ONE GIVEN PO PER REQUEST.WILL CONTINUE TO MONITOR FOR ANY CHGES. AND FOLLOW CURRENT PLAN OF CARE.
[2017-02-08 04:00] VITALS: BP 158/55
[2017-02-08 05:45] LABS: EOSINOPHILS 3.2 % (0-7); HEMATOCRIT 38.2 % (36.0-48.0); HEMOGLOBIN 12.1 g/dL (12-16); LYMPHOCYTES 41.7 % (15-50); MCH 28.7 pg (26.0-34.0); MCHC 31.7 g/dL (31.0-37.0); MCV 90.7 fL (80.0-100.0); MEAN PLATELET VOLUME 9.5 fL (7.4-10.4); NEUTROPHILS 46.1 % (40-80); PLATELET COUNT 205 10x3/uL (130-400); RBC 4.21 10x6/uL (4.00-5.40); RDW 13.4 % (11.5-14.5); WBC 4.1 10x3/uL (4.8-10.8)
[2017-02-08 06:01] LABS: ALBUMIN 2.7 g/dL (3.4-5.0); ALKALINE PHOSPHATASE 95 U/L (46-116); ALT (SGPT) 31 U/L (10-68); CALCIUM 8.6 mg/dL (8.5-10.1); CARBON DIOXIDE 32.2 mmol/L (21.0-32.0); CHLORIDE - SERUM 103 mmol/L (98-107); CREATININE - SERUM 0.6 mg/dL (0.6-1.3); POTASSIUM - SERUM 3.8 mmol/L (3.5-5.1); PROTEIN - SERUM 6.3 g/dL (6.4-8.2); SODIUM 142 mmol/L (136-145); eGFR NON AFRICAN AMERICAN > 90 mL/min (90-120)
[2017-02-08 06:12] LABS: CALC OSMOLALITY 279 mosm/kg (275-300); GLUCOSE 93 mg/dL (74-106); UREA NITROGEN 5 mg/dL (7-18)
--- NOTE | 2017-02-08 07:35 | NUR ---
PATIENT RECEIVED IN MID MELO POSITION RESTING QUIETLY WITH EYES CLOSED. RESPIRATIONS EVEN AND UNLABORED. SIDE RAILS UP X2. BED IN LOW POSITION. CALL LIGHT IN REACH. SCD ON BILATERALLY. BED ALARM ON.
--- NOTE | 2017-02-08 08:35 | NUR ---
PATIENT ALERT IN HIGH MELO POSITION WITH PRESENT. NO SIGNS OF DISTRESS NOTED. SCHEDULED MEDICATION ADMINISTERED. SIDE RAILS UP X2. BED IN LOW POSITION. CALL LIGHT IN REACH.
[2017-02-08 08:38] VITALS: BP 157/79
--- NOTE | 2017-02-08 10:07 | NUR ---
C/O HEADACHE 03/12. FIORCET ADMINISTERED PER PRN ORDER. NO FURTHER NEEDS VOICED. SIDE RAILS UP X2. BED IN LOW POSITION. CALL LIGHT IN REACH. BED ALARM ON.
--- NOTE | 2017-02-08 10:46 | NUR ---
Rehab Note- The patient continues to refuse Physical therapy eval and treatment. Spoke with ELEUTERIO Sun and stated she would talk with the patient and the . Will continue to follow the patient, she has to be able to participate and tolerate 3hrs of therapy per day per Medicare guidelines for acute rehab. Jenifer Dennis RN Clinical Liaison, [facility] Rehab
--- NOTE | 2017-02-08 12:06 | NUR ---
Wound care consult: Noted blanchable redness on buttocks/sacrum/coccyx. No open areas. Pt denies any tenderness or discomfort. She is on an egg crate mattress and states it is very comfortable. Instructed pt on importance of turning/repositioning every 2 hours while she's in bed to relieve pressure. She voiced understanding. Wound care will monitor.
[2017-02-08 12:57] VITALS: BP 121/85
--- NOTE | 2017-02-08 14:18 | NUR ---
SITTING UP IN CHAIR AT BEDSIDE WATCHING TV. NO SIGNS OF DISTRESS NOTED. DENIES NEEDS. CALL LIGHT IN REACH.
--- NOTE | 2017-02-08 16:10 | NUR ---
Rehab Note- Spoke with patient again this afternoon about acute rehab. Stated she did want to come and that she is willing to participate in the required 3hrs/day of therapy. Patient only noted to get up to chair today. Will follow at this time and hopefully the patient will be more willig and able to participate in therapy in the morning. Thank you for this referral! Jenifer Dennis RN Clinical Liaison, [facility] Rehab
--- NOTE | 2017-02-08 18:05 | NUR ---
PATIENT IN HIGH MELO POSITION WITH SON PRESENT. NO SIGNS OF DISTRESS NOTED. DENIES NEEDS. SIDE RAILS UP X2. BED IN LOW POSITION. CALL LIGHT IN REACH.
[2017-02-08 20:00] VITALS: BP 146/77
[2017-02-09] VITALS: BP 144/82
--- NOTE | 2017-02-09 03:32 | NUR ---
EYES CLOSED RESPIRATIONS WITH EASE AND UNLABORED. SR UP X2 CALL LIGHT WITHIN REACH.
[2017-02-09 04:00] VITALS: BP 158/85
[2017-02-09 06:18] LABS: BASOPHILS 0.6 % (0-2); EOSINOPHILS 3.7 % (0-7); HEMATOCRIT 36.9 % (36.0-48.0); HEMOGLOBIN 11.8 g/dL (12-16); MCH 28.8 pg (26.0-34.0); MEAN PLATELET VOLUME 9.7 fL (7.4-10.4); MONOCYTES 9.3 % (2-11); NEUTROPHILS 52.4 % (40-80); PLATELET COUNT 210 10x3/uL (130-400); RDW 13.4 % (11.5-14.5); WBC 4.8 10x3/uL (4.8-10.8)
[2017-02-09 06:33] LABS: ALBUMIN 2.6 g/dL (3.4-5.0); ALKALINE PHOSPHATASE 93 U/L (46-116); ALT (SGPT) 32 U/L (10-68); CALC OSMOLALITY 275 mosm/kg (275-300); CALCIUM 8.4 mg/dL (8.5-10.1); CARBON DIOXIDE 30.5 mmol/L (21.0-32.0); CHLORIDE - SERUM 102 mmol/L (98-107); CREATININE - SERUM 0.5 mg/dL (0.6-1.3); GLUCOSE 86 mg/dL (74-106); PROTEIN - SERUM 6.5 g/dL (6.4-8.2); SODIUM 140 mmol/L (136-145); UREA NITROGEN 6 mg/dL (7-18); eGFR NON AFRICAN AMERICAN > 90 mL/min (90-120)
--- NOTE | 2017-02-09 07:35 | NUR ---
PATIENT RECEIVED ALERT IN LOW MELO POSITION. RESPIRATIONS EVEN AND UNLABORED. SIDE RAILS UP X2. BED IN LOW POSITION. CALL LIGHT IN REACH.
--- NOTE | 2017-02-09 08:15 | NUR ---
PATIENT SITTING UP IN BED ALERT. NO SIGNS OF DISTRESS NOTED. SCHEDULED MEDICATION ADMINISTERED. FAMILY PRESENT. SIDE RAILS UP X2. BED IN LOW POSITION. CALL LIGHT IN REACH.
[2017-02-09 08:26] VITALS: BP 150/76
--- NOTE | 2017-02-09 11:10 | NUR ---
PATIENT IN MID MELO POSITION RESTING WITH EYES CLOSED. RESPIRATIONS EVEN AND UNLABORED. SIDE RAILS UP X2. BED IN LOW POSITION. CALL LIGHT IN REACH.
--- NOTE | 2017-02-09 12:52 | NUR ---
PATIENT BEING DISCHARGED TO IN-PATIENT REHAB TODAY AT [facility] . AT BEDSIDE IMM SERVED CM WILL CONTINUE TO FOLLOW AND ASSIST NEEDED.
[2017-02-09 12:57] VITALS: BP 144/89
--- NOTE | 2017-02-09 14:25 | NUR ---
PATIENT IN MID MELO POSITION RESTING QUIETLY. RESPIRATIONS EVEN AND UNLABORED. SCHEDULED MEDICATION ADMINSITERED. SIDE RAILS UP X2 .BED IN LOW POSITION. CALL LIGHT IN REACH.
[2017-02-09 16:11] VITALS: BP 138/76
--- NOTE | 2017-02-09 16:11 | NUR ---
REPORT CALLED TO [facility]. RACHEL RECEIVED REPORT.
--- NOTE | 2017-02-09 17:10 | NUR ---
PATIENT D/C TO [facility] VIA WHEELCHAIR WITH STAFF.
== END 2017-02-09 17:14 | DRG 640 ==
LOC: D.ER 21:12 → D.MS 23:27
PROVIDERS: Emergency Medicine; ADMIT Family Medicine
DX: E87.1 Hypo-osmolality and hyponatremia (principal); G93.41 Metabolic encephalopathy; R53.2 Functional quadriplegia; I48.91 Unspecified atrial fibrillation; I71.4 Abdominal aortic aneurysm, without rupture; E03.9 Hypothyroidism, unspecified; J44.9 Chronic obstructive pulmonary disease, unspecified

== ENCOUNTER 2017-02-09 16:53 | Inpatient (IN) | payer MEDICARE, OTHER ==
[~2017-02-09] VITALS: Ht 157.5 cm; Wt 52.2 kg
[2017-02-09 19:35] VITALS: BP 128/88
--- NOTE | 2017-02-09 19:35 | NUR ---
PM ROUNDS MADE, PT SITTING UP IN WC AT THIS TIME, VS OBTAINED, INFORMED PT THAT I WILL RETURN SHORTLY TO DO ASSESSMENT, PT VERBALIZES UNDERSTANDING, C/O SLIGHT MORGAN, REQUESTS FIORICET WHEN DUE, INFORMED PT THAT I WILL LOOK OVER HER MEDS AND BRING IT IN IF DUE, PT VERBALIZES UNDERSTANDING, DENIES NEEDS AT THIS TIME
--- NOTE | 2017-02-09 20:30 | NUR ---
PT SITTING UP IN WC, DENIES NEEDS AT THIS TIME
--- NOTE | 2017-02-09 21:10 | NUR ---
INFORMED PT THAT I WILL ADM MEDS WHEN I RECEIVE THEM FROM THE PHARMACY, PT VERBALIZES UNDERSTANDING, FRESH H20 SERVED, DENIES NEEDS
--- NOTE | 2017-02-09 22:18 | NUR ---
ADM 2100 MEDS PER MD ORDERS, ADMITTING HISTORY AND ASSESSMENT STARTED, PT TO SIDE OF BED, BRIEF CHANGED, SALINE LOCK IN LEFT WRIST NOT PATENT, PT REPORTS THAT IT HURTS, SALINE LOCK REMOVED, TIP INTACT, BANDAID APPLIED, PT IN BED, WARM BLANKET PROVIDED
[2017-02-09 22:42] VITALS: BP 128/88; BMI 21.0
--- NOTE | 2017-02-10 00:30 | NUR ---
PT RESTING WITH EYES CLOSED, RESP QUIET, NO DISTRESS NOTED, LEFT UNDISTURBED AT THIS TIME
--- NOTE | 2017-02-10 02:02 | NUR ---
PT RESTING WITH EYES CLOSED, RESP QUIET, NO DISTRESS NOTED, LEFT UNDISTURBED AT THIS TIME
--- NOTE | 2017-02-10 04:16 | NUR ---
PT RESTING WITH EYES CLOSED, RESP QUIET, NO DISTRESS NOTED, LEFT UNDISTURBED AT THIS TIME
--- NOTE | 2017-02-10 05:53 | NUR ---
PT RESTING WITH EYES CLOSED, AROUSES TO SOFT VERBAL STIMULATION, ADM 0600 MED PER MD ORDERS, SEE EMAR, PT CLEANED UP WITH WET WARM WIPES, ADULT BRIEFS AND BLUE CHUX CHANGED, PT DENIES NEEDS OR PAIN AT THIS TIME
--- NOTE | 2017-02-10 07:00 | NUR ---
SHIFT REPORT TO DAY SHIFT
--- NOTE | 2017-02-10 07:13 | NUR ---
RESTING QUIETLY IN BED. EYES CLOSED. NO S/S DISTRESS OR NEEDS. CALL LIGHT IN REACH.
[2017-02-10 08:03] VITALS: BP 147/86
[2017-02-10 08:04] LABS: BASOPHILS 0.8 % (0-2); EOSINOPHILS 3.9 % (0-7); HEMATOCRIT 39.4 % (36.0-48.0); HEMOGLOBIN 12.6 g/dL (12-16); IMMATURE GRANULOCYTES 0.2 % (0-5); LYMPHOCYTES 29.9 % (15-50); MCH 28.7 pg (26.0-34.0); MCV 89.7 fL (80.0-100.0); MEAN PLATELET VOLUME 9.3 fL (7.4-10.4); MONOCYTES 6.7 % (2-11); NEUTROPHILS 58.5 % (40-80); PLATELET COUNT 235 10x3/uL (130-400); RBC 4.39 10x6/uL (4.00-5.40); RDW 13.3 % (11.5-14.5); WBC 4.9 10x3/uL (4.8-10.8)
[2017-02-10 08:36] LABS: CALC OSMOLALITY 274 mosm/kg (275-300); CALCIUM 8.8 mg/dL (8.5-10.1); CARBON DIOXIDE 33.6 mmol/L (21.0-32.0); CHLORIDE - SERUM 101 mmol/L (98-107); CREATININE - SERUM 0.5 mg/dL (0.6-1.3); GLUCOSE 93 mg/dL (74-106); POTASSIUM - SERUM 3.7 mmol/L (3.5-5.1); SODIUM 139 mmol/L (136-145); UREA NITROGEN 5 mg/dL (7-18); eGFR NON AFRICAN AMERICAN > 90 mL/min (90-120)
[2017-02-10 10:45] VITALS: Ht 157.5 cm; Wt 52.2 kg
--- NOTE | 2017-02-10 12:06 | NUR ---
IN THERAPY WITH PHYSICAL THERAPY
--- NOTE | 2017-02-10 14:41 | NUR ---
sitting up in wheelchair watching tv. offers no complaints. call light in reach. will continue to monitor
--- NOTE | 2017-02-10 17:42 | NUR ---
SITTING UP IN WHEELCHAIR EATING DINNER. AT BEDSIDE. NO S/SX OF DISTRESS. CALL LIGHT IN REACH. WILL CONTINUE TO MONITOR
--- NOTE | 2017-02-10 18:58 | NUR ---
ASSISTED PT WITH SHOWER SETUP. PT SHOWERED INDEPENDENTLY. ASSISTED PT TO BED. OFFERS NO COMPLAINTS. CALL LIGHT IN REACH.
[2017-02-10 19:30] VITALS: BP 98/61
--- NOTE | 2017-02-10 19:30 | NUR ---
ASSESSMENT PER FLOW SHEET, VS OBTAINED, PT DENIES WETNESS TO BRIEFS, PT STATES "I WILL LET YOU KNOW", PT C/O MORGAN, REQUESTS FIORICET, INFORMED PT THAT I WILL ADM IT
--- NOTE | 2017-02-10 19:45 | NUR ---
ADM FIORICET PO PER MD ORDERS, SEE EMAR, WITH FRESH H20, PT DENIES FURTHER NEEDS, BED IN LOW POSITION, SIDE RAILS X2, CALL LIGHT IN REACH, BED ALARM ON AND WORKING PROPERLY
--- NOTE | 2017-02-10 20:30 | NUR ---
PT RESTING WITH EYES CLOSED, AROUSES TO SOFT VERBAL STIMULATION, PT DENIES PAIN, 02 AT 2L PLACED WHILE PT IS SLEEPING
--- NOTE | 2017-02-10 21:15 | NUR ---
PT RESTING WITH EYES CLOSED, AROUSES TO SOFT VERBAL STIMULATION, ADM 2100 MEDS PER MD ORDERS, SEE EMAR, PT DENIES BEING WET AT THIS TIME, DENIES NEEDS, BED IN LOW POSITION, SIDE RAILS X 2, CALL LIGHT IN REACH, BED ALARM ON AND WORKING PROPERLY
--- NOTE | 2017-02-10 22:30 | NUR ---
PT RESTING WITH EYES CLOSED, RESP QUIET, NO DISTRESS NOTED, LEFT UNDISTURBED AT THIS TIME
--- NOTE | 2017-02-11 02:22 | NUR ---
PT RESTING WITH EYES CLOSED, RESP QUIET, NO DISTRESS NOTED, LEFT UNDISTURBED AT THIS TIME, BED IN LOW POSITION, SIDE RAILS X 2, CALL LIGHT IN REACH, BOX ALARM ON AND WORKING PROPERLY
--- NOTE | 2017-02-11 05:26 | NUR ---
PT RESTING WITH EYES CLOSED, AROUSES TO SOFT VERBAL STIMULATIN, PT WET, PT CLEANED UP WITH WET WARM WIPES, BRIEF CHANGED, BLUE CHUX AND PINK PAD CHANGE, PT REPOSITONED TO RIGHT SIDE WITH PILLOW BEHIND BACK FOR COMFORT AND SUPPORT, PT DENIES NEEDS OR PAIN, BED IN LOW POSITION, SIDE RAILS X 2, CALL LIGHT IN REACH, BOX ALARM ON AND WORKING PROPERLY
--- NOTE | 2017-02-11 06:41 | NUR ---
SHIFT REPORT TO DAY SHIFT
--- NOTE | 2017-02-11 07:10 | NUR ---
LYING IN BED EYES CLOSED RESTING. NO S/SX OF DISTRESS. EASILY AROUSED WITH STIMULI. CALL LIGHT IN REACH. WILL CONTINUE TO MONITOR
[2017-02-11 08:00] VITALS: BP 141/88
--- NOTE | 2017-02-11 10:32 | NUR ---
ADMINISTERED MORNING MEDS WITHOUT DIFFICULTY. C/O OF HEAD HURTING 11/09. ADMINISTERED FIORCET. OFFERS NO OTHER CONCERNS. IN THERAPY WITH SHARITA. WILL CONTINUE TO MONITOR
--- NOTE | 2017-02-11 12:21 | NUR ---
SITTING UP IN WHEELCHAIR EATING LUNCH. OFFERS NO COMPLAINTS. CALL LIGHT IN REACH. WILL CONTINUE TO MONITOR
--- NOTE | 2017-02-11 14:21 | NUR ---
SITTING UP IN WHEELCHAIR READING A BOOK. OFFERS NO COMPLAINTS. NO S/SX OF DISTRESS. CALL LIGHT IN REACH. WILL CONTINUE TO MONITOR
--- NOTE | 2017-02-11 18:46 | NUR ---
SITTING UP IN BED RESTING. OFFERS NO COMPLAINTS. CALL LIGHT IN REACH
[2017-02-11 19:50] VITALS: BP 108/73
--- NOTE | 2017-02-11 21:32 | NUR ---
PT IS SITTING IN A WC AT HER BEDSIDE WATCHING TV. ALERT AND ORIENTED X 3. NO ACUTE DISTRESS NOTED.VSS. NO NEEDS VOICED. TOLERATED PM MEDS WITHOUT DIFFICULTY. SR'S ARE UP X 2 WHILE IN BED. CALL LIGHT AND BEDSIDE TABLE ARE WITHIN EASY REACH.
--- NOTE | 2017-02-12 00:29 | NUR ---
RESTING IN BED WITH EYES CLOSED.
--- NOTE | 2017-02-12 01:25 | NUR ---
PT. SITTING UP IN W/C WATCHING TV. NO VOICED NEEDS AT THIS TIME AND HER CALL LIGHT IS WITHIN REACH.
--- NOTE | 2017-02-12 03:03 | NUR ---
RESTING IN BED WITH EYES CLOSED.
[2017-02-12 07:30] VITALS: BP 139/77
--- NOTE | 2017-02-12 07:45 | NUR ---
LYING IN BED EYES CLOSED RESTING. EASILY AROUSED WITH STIMULI. CALL LIGHT IN REACH. WILL CONTINUE TO MONITOR
--- NOTE | 2017-02-12 14:01 | NUR ---
SITTING UP IN WHEELCHAIR READING A BOOK. OFFERS NO COMPLAINTS. CALL LIGHT IN REACH. WILL CONTINUE TO MONITOR
--- NOTE | 2017-02-12 16:18 | NUR ---
ASSISTED TO RESTROOM AND BACK TO ROOM VIA WHEELCHAIR WITH MIN ASSIST. OFFERS NO COMPLAINTS. CALL LIGHT IN REACH. WILL CONTINUE TO MONITOR
--- NOTE | 2017-02-12 17:15 | NUR ---
SITTING UP IN WC.CL IN REACH.
--- NOTE | 2017-02-12 18:04 | NUR ---
SITTING UP IN WC FAMILY AT BEDSIDE. CALL LIGHT IN REACH. WILL CONTINUE TO MONTIOR
--- NOTE | 2017-02-12 19:16 | NUR ---
PT. SITTING UP IN W/C READING A MAGAZINE. NO VOICED NEEDS AND HER CALL LIGHT IS WITHIN REACH.
--- NOTE | 2017-02-12 22:36 | NUR ---
PT IS RESTING IN BED WITH EYES OPEN. ALERT AND ORIENTED X 4. DENIES ACUTE DISCOMFORT AT THIS TIME. SHOWERED WITH SBA. ASSISTED ONLY WITH DRYING HER BACK AND FEET, AND MIN ASSIST WITH DRESSING. SR'S ARE UP X 2 IN BED. CALL LIGHT AND BEDSIDE TABLE ARE WITHIN EASY REACH.
--- NOTE | 2017-02-13 00:22 | NUR ---
RESTING IN BED WITH EYES CLOSED.
--- NOTE | 2017-02-13 03:00 | NUR ---
RESTING IN BED WITH EYES CLOSED. INC. CARE GIVEN PRN.
[2017-02-13 05:46] LABS: BASOPHILS 1.1 % (0-2); EOSINOPHILS 4.6 % (0-7); HEMATOCRIT 37.4 % (36.0-48.0); HEMOGLOBIN 11.9 g/dL (12-16); IMMATURE GRANULOCYTES 0.2 % (0-5); LYMPHOCYTES 35.6 % (15-50); MCH 28.6 pg (26.0-34.0); MCHC 31.8 g/dL (31.0-37.0); MCV 89.9 fL (80.0-100.0); MEAN PLATELET VOLUME 9.8 fL (7.4-10.4); MONOCYTES 7.9 % (2-11); NEUTROPHILS 50.6 % (40-80); PLATELET COUNT 191 10x3/uL (130-400); RBC 4.16 10x6/uL (4.00-5.40); RDW 13.6 % (11.5-14.5); WBC 5.7 10x3/uL (4.8-10.8)
--- NOTE | 2017-02-13 06:09 | NUR ---
PT RESTING IN BED WITH EYES CLOSED. AWOKE TO VERBAL STIMULI. PT IS VERY SLEEPY. INC. CARE GIVEN. NO NEEDS VOICED.
[2017-02-13 06:27] LABS: CALC OSMOLALITY 283 mosm/kg (275-300); CALCIUM 8.7 mg/dL (8.5-10.1); CARBON DIOXIDE 31.5 mmol/L (21.0-32.0); CHLORIDE - SERUM 105 mmol/L (98-107); CREATININE - SERUM 0.6 mg/dL (0.6-1.3); GLUCOSE 89 mg/dL (74-106); POTASSIUM - SERUM 4.1 mmol/L (3.5-5.1); SODIUM 143 mmol/L (136-145); UREA NITROGEN 13 mg/dL (7-18); eGFR NON AFRICAN AMERICAN > 90 mL/min (90-120)
--- NOTE | 2017-02-13 08:28 | NUR ---
PT RESTING IN BED WITH EYES OPEN CALL LIGHT IN REACH NO PROBLEMS WILL MONITER
[2017-02-13 09:30] VITALS: BP 155/85
--- NOTE | 2017-02-13 17:55 | NUR ---
EATING SUPPER IN ROOM. DENIES NEEDS OR C/O. CALL LIGHT IN REACH
[2017-02-13 19:30] VITALS: BP 94/60
--- NOTE | 2017-02-13 19:30 | NUR ---
PM ROUNDS MADE, PT UP IN WC AT THIS TIME, VS OBTAINED, PT DENIES NEEDS AT THIS TIME
--- NOTE | 2017-02-13 20:10 | NUR ---
PT CONTINUES IN WC, READING, REQUESTS TO SIT IN WC UNTIL 9PM MEDS, PT DENIES NEEDS AT THIS TIME
--- NOTE | 2017-02-13 21:30 | NUR ---
PT TO BR, VOIDED BY SELF WITH NO DIFFICULTY, PT CHANGED INTO NIGHT SHIRT, BRIEFS CHANGED, PT TO BED, ASSESSMENT PER FLOW SHEET, ADM 2100 MEDS PER MD ORDERS, REQUESTS FIORICET, INFORMED PT THAT I WILL GET IT AND BRING IT RIGHT IN
--- NOTE | 2017-02-13 21:34 | NUR ---
ADM FIORICET PER MD ORDERS, SEE EMAR, PT PLACED ON O2 AT 2L VIA NC, PT DENIES FURTHER NEEDS, BED IN LOW POSITION, SIDE RAILS X 2, CALL LIGHT IN REACH
--- NOTE | 2017-02-13 22:30 | NUR ---
PT RESTING WITH EYES CLOSED, REPS QUIET, NO DISTRESS NOTED, LEFT UNDISTURBED AT THIS TIME, BED IN LOW POSITION, SIDE RAILS X 2, CALL LIGHT IN REACH
--- NOTE | 2017-02-14 00:20 | NUR ---
PT RESTING WITH EYES CLOSED, RESP QUIET, NO DISTRESS NOTED, LEFT UNDISTURBED AT THIS TIME
--- NOTE | 2017-02-14 01:31 | NUR ---
PT RESTING WITH EYES CLOSED, RESP QUIET, NO DISTRESS NOTED, LEFT UNDISTURBED AT THIS TIME, BED IN LOW POSITION, SIDE RAILS X 2, CALL LIGHT IN REACH
--- NOTE | 2017-02-14 05:54 | NUR ---
PT RESTING WITH EYES CLOSED, AROUSES TO SOFT VERBAL STIMUALTION, PT CLEANED UP WITH WET WARM WIPES, BRIEFS CHANGED, ADM 0600 MED AND PT REQUESTED FIORICET PER MD ORDERS, SEE EMAR, WITH FRESH H20, PT DENIES FURTHER NEEDS, BED IN LOW POSITION, SIDE RAILS X 2, CALL LIGHT IN REACH
--- NOTE | 2017-02-14 07:00 | NUR ---
SHIFT REPORT TO DAY SHIFT
--- NOTE | 2017-02-14 07:45 | NUR ---
PT RESTING IN BED WITH EYES OPEN CALL LIGHT IN REACH WILL MONITER
--- NOTE | 2017-02-14 14:04 | NUR ---
PT REQUEST PAIN MED FOR BACK AND HEAD. FIORICET GIVEN.
--- NOTE | 2017-02-14 14:11 | NUR ---
Nutrition Follow Up: Pt is eating 88% meal avg on a regular diet. +BM 02/13/17. Labs reviewed. Wt stable. Meds noted including Remeron. Rec continue current diet. RD following.
--- NOTE | 2017-02-14 15:22 | NUR ---
PT RESTING IN W/C BESIDE OF BED CALL LIGHT IN REACH WILL MONITER
--- NOTE | 2017-02-14 17:09 | NUR ---
PATIENT ADMITTED TO REHAB FORM ACUTE FLOOR. DR. CAMACHO IS HER PCP. [facility] IS HER PHARMACY. DME AT HOME: WALKER, WHEELCHAIR, BEDSIDE COMMODE, SHOWER CHAIR,LIFT CHAIR, BEDSIDE TABLE. SHE USES [facility] FOR HER DME NEEDS. WILL CONTINUE TO FOLLOW WITH PATIENT.
--- NOTE | 2017-02-14 17:28 | NUR ---
PT RESTING IN BED WITH EYES OPEN CALL LIGHT IN REACH NO PROBLEMS WILL MONITER
--- NOTE | 2017-02-14 19:25 | NUR ---
PM ROUNDS MADE, PT SITTING UP IN WC, INFORMED PT THAT I WILL BE BACK SHORTLY TO DO ASSESSMENT, PT VERBALIZES UNDERSTANDING, PT REQUESTS TO TAKE A SHOWER, INFORMED PT I WILL DO THAT WHEN I GET BACK, PT DENIES FURTHER NEEDS AT THIS TIME
--- NOTE | 2017-02-14 20:00 | NUR ---
PT UP TO SHOWER, PT SITTING ON SHOWER CHAIR, PT INST TO USE CALL LIGHT FOR ANY ASSISTANCE AND WHEN FINISHED, PT VERBALIZES UNDERSTANDING
[2017-02-14 20:30] VITALS: BP 118/73
--- NOTE | 2017-02-14 20:30 | NUR ---
PT FINISHED SHOWERING, ASSISTED PT DRYING OFF, BRIEFS AND CLEAN NIGHT SHIRT APPLIED, PT APPLIES DEODARENT, PAYTON HAIR, REQUESTS TO SIT UP IN WC UNTIL SHE TAKES HER 2100 MEDS, VS OBTAINED, ASSESSMENT PER FLOW SHEET, REQUESTED AND SERVED BOTTLED WATER, PT DENIES FURTHER NEEDS AT THIS TIME
--- NOTE | 2017-02-14 21:42 | NUR ---
PT TO BR VIA WC WITH ASSISTANCE, PT VOIDED BY SELF WITH NO DIFFICULTY, PT TO BED, ADM MEDS PER MD ORDERS, SEE EMAR, PT DENIES FURTHER NEEDS AT THIS TIME, BED IN LOW POSITION, SIDE RAILS X 2, CALL LIGHT IN REACH
--- NOTE | 2017-02-14 21:43 | NUR ---
LATE ENTRY: O2 PLACED ON AT 2L VIA NC FOR SLEEP
--- NOTE | 2017-02-14 22:30 | NUR ---
PT RESTING WITH EYES CLOSED, RESP QUIET, NO DISTRESS NOTED, LEFT UNDSTURBED AT THIS TIME, BED IN LOW POSITION, SIDE RAILS X 2, CALL LIGHT IN REACH
--- NOTE | 2017-02-15 03:33 | NUR ---
PT RESTING WIT EYES CLOSED, RESP QUIET, NO DISTRESS NOTED, LEFT UNDISTURBED AT THIS TIME, BED IN LOW POSITION, SIDE RAILS X 2, CALL LIGHT IN REACH
--- NOTE | 2017-02-15 05:45 | NUR ---
PT RESTING WITH EYES CLOSED, AROUSES TO SOFT VERBAL STIMULATION, PT CLEANED UP WITH WET WARM WIPES, BLUE CHUX AND BRIEF CHANGED, ADM 0600 MED AND FIORICET PER MD ORDERS, SEE EMAR, PT DENIES FURTHER NEEDS, BED IN LOW POSITION, SIDE RAILS X 2, CALL LIGHT IN REACH
[2017-02-15 05:47] LABS: BASOPHILS 0.6 % (0-2); HEMATOCRIT 36.2 % (36.0-48.0); HEMOGLOBIN 11.5 g/dL (12-16); IMMATURE GRANULOCYTES 0.3 % (0-5); LYMPHOCYTES 33.2 % (15-50); MCH 28.7 pg (26.0-34.0); MCHC 31.8 g/dL (31.0-37.0); MCV 90.3 fL (80.0-100.0); MEAN PLATELET VOLUME 9.9 fL (7.4-10.4); MONOCYTES 7.7 % (2-11); NEUTROPHILS 53.2 % (40-80); PLATELET COUNT 179 10x3/uL (130-400); RBC 4.01 10x6/uL (4.00-5.40); RDW 13.6 % (11.5-14.5); WBC 6.2 10x3/uL (4.8-10.8)
[2017-02-15 06:07] LABS: CALC OSMOLALITY 283 mosm/kg (275-300); CALCIUM 8.7 mg/dL (8.5-10.1); CARBON DIOXIDE 32.6 mmol/L (21.0-32.0); CHLORIDE - SERUM 106 mmol/L (98-107); CREATININE - SERUM 0.6 mg/dL (0.6-1.3); GLUCOSE 82 mg/dL (74-106); POTASSIUM - SERUM 4.1 mmol/L (3.5-5.1); SODIUM 144 mmol/L (136-145); eGFR NON AFRICAN AMERICAN > 90 mL/min (90-120)
[2017-02-15 06:11] LABS: UREA NITROGEN 8 mg/dL (7-18)
--- NOTE | 2017-02-15 06:47 | NUR ---
SHIFT REPORT TO DAY SHIFT
--- NOTE | 2017-02-15 07:30 | NUR ---
LYING IN BED RESTING COMFORTABLY. OFFERS NO COMPLAINTS. CALL LIGHT IN REACH. NO S/SX OF DISTRESS. WILL CONTINUE TO MONITOR
[2017-02-15 08:00] VITALS: BP 129/77
--- NOTE | 2017-02-15 08:38 | NUR ---
AT BEDSIDE ASSISTING WITH MEAL.
--- NOTE | 2017-02-15 09:19 | NUR ---
SITTING UP IN BED WATCHING TV. AT BEDSIDE. OFFERS NO COMPLAINTS. MORNING MEDS ADMINISTERED WITHOUT DIFFICULTY. WILL CONTINUE TO MONITOR
--- NOTE | 2017-02-15 13:03 | NUR ---
SITTING UP IN WHEELCHAIR READING A BOOK. OFFERS NO COMPLAINTS. CALL LIGHT IN REACH. WILL CONTINUE TO MONITOR
--- NOTE | 2017-02-15 20:15 | NUR ---
PT. SITTING UP IN CHAIR AND IS NOT READY TO GO BACK TO BED YET. PT. READING HER BOOK. ASSESSMENT COMPLETED. NO VOICED NEEDS AT THIS TIME AND HER CALL LIGHT IS WITHIN REACH.
[2017-02-15 20:30] VITALS: BP 99/66
--- NOTE | 2017-02-15 23:02 | NUR ---
PT. IN BED WITH HOB UP FOR COMFORT WITH EYES CLOSED AND RESP. DEEP AND EVEN. CALL LIGHT WITHIN REACH.
--- NOTE | 2017-02-16 03:01 | NUR ---
PT. IN BED WITH HOB UP FOR COMFORT. EYES CLOSED, RESP. DEEP AND EVEN. CALL LIGHT WITHIN REACH.
--- NOTE | 2017-02-16 07:35 | NUR ---
LYING IN BED EYES CLOSED RESTING COMFORTABLY. EASILY AROUSED WITH VERBAL STIMULI. NO S/SX OF DISTRESS. CALL LIGHT IN REACH. WILL CONTINUE TO MONTIOR
--- NOTE | 2017-02-16 08:00 | NUR ---
CL IN REACH.DENIES NEEDS.
[2017-02-16 08:29] VITALS: BP 134/76
--- NOTE | 2017-02-16 08:40 | NUR ---
SPOKE TO KARAN AT DR. PANCHAL'S OFFICE IN REGARDS TO NEEDING A CONSULT. KARAN ADVISED SHE WOULD GIVE INFORMATION TO DR. PANCHAL.
--- NOTE | 2017-02-16 09:02 | NUR ---
ADMINISTERED MORNING MEDS. ASSISTED PT TO RESTROOM AND BACK TO ROOM. SITTING UP IN WHEELCHAIR WATCHING TV. OFFERS NO COMPLAINTS. CALL LIGHT IN REACH. WILL CONTINUE TO MONITOR
--- NOTE | 2017-02-16 12:13 | NUR ---
SITTING UP IN CHAIR. AT BEDSIDE. C/O OF HEAD HURTING ADMINISTER FIORICET PER PT REQUEST. NO OTHER CONCERNS VOICED. CALL LIGHT IN REACH. WILL CONTINUE TO MONITOR
--- NOTE | 2017-02-16 14:12 | NUR ---
SITTING UP IN CHAIR WATCHING TV. OFFERS NO COMPLAINTS. NO S/SX OF DISTRESS. CALL LIGHT IN REACH. WILL CONTINUE TO MONITOR
--- NOTE | 2017-02-16 17:54 | NUR ---
SITTING UP IN WHEELCHAIR. DR. PANCHAL AT BEDSIDE. NO COMPLAINTS VOICED. CALL LIGHT IN REACH. WILL CONTINUE TO MONITOR
--- NOTE | 2017-02-16 19:11 | NUR ---
PT. UP IN W/C AND READING A BOOK. PT. WITH MALE VISITOR ALSO. NO VOICED NEEDS AND HER CALL LIGHT IS WITHIN REACH.
--- NOTE | 2017-02-16 19:30 | NUR ---
SIT IN WHEELCHAIR AND READ BOOK.
[2017-02-16 19:55] LABS: MAGNESIUM - SERUM 1.8 mg/dL (1.8-2.4); T4 THYROXINE 9.6 ug/dL (4.7-13.3); THYROID STIMULATING HORMONE 1.7 uIU/mL (0.36-3.74); VALPROIC ACID (DEPAKOTE) 44.1 ug/mL (50.0-100.0)
[2017-02-17 00:40] VITALS: BP 114/68
--- NOTE | 2017-02-17 03:01 | NUR ---
REST QUIETLY IN BED, EYE CLOSE, CALL LIGHT WITHIN REACH.
[2017-02-17 08:00] VITALS: BP 123/74
--- NOTE | 2017-02-17 08:08 | NUR ---
SITTING UP IN WC. AT BEDSIDE.CL IN REACH.
--- NOTE | 2017-02-17 13:07 | NUR ---
PT UP IN WHEELCHAIR CALL LIGHT IN REACH AND SON AT BEDSIDE
--- NOTE | 2017-02-17 18:04 | NUR ---
PT RESTING IN BED WITH EYES OPEN CALL LIGHT IN REACH WILL MONITER
--- NOTE | 2017-02-17 19:26 | NUR ---
TALK TO AT BEDSIDE.
--- NOTE | 2017-02-17 23:32 | NUR ---
COME TO VISIT.
[2017-02-18 00:53] VITALS: BP 100/71
--- NOTE | 2017-02-18 04:21 | NUR ---
REST IN BED, EYE CLOSE, CALL LIGHT WITHIN REACH.
--- NOTE | 2017-02-18 07:36 | NUR ---
PT RESTING IN BED WITH EYES OPEN CALL LIGHT IN REACH NO PROBLEMS WILL MONITER
[2017-02-18 08:00] VITALS: BP 137/86
--- NOTE | 2017-02-18 16:51 | NUR ---
PT RESTING IN BED WITH EYES OPEN CALL LIGHT IN REACH NO PROBLEMS WILL MONITERS
--- NOTE | 2017-02-18 18:21 | NUR ---
JUST FINISHED SUPPER. DENIES NEEDS. CALL LIGHT IN REACH
--- NOTE | 2017-02-18 19:50 | NUR ---
SIT UP IN WHEELCHAIR AND READ BOOK.
[2017-02-19 00:08] VITALS: BP 110/72
--- NOTE | 2017-02-19 02:21 | NUR ---
REST IN BED, EYE CLOSE, CALL LIGHT IN REACH.
--- NOTE | 2017-02-19 03:56 | NUR ---
PT RESTING EYES CLOSED. RR ARE EVEN AND UNLABORED. WCTM.
--- NOTE | 2017-02-19 07:45 | NUR ---
PT IN BED WITH EYES CLOSED AND CHEST RISING. NO SIGN/SYMPTOMS OF DISTRESS NOTED. EASILY AROUSED TO VERBAL STIMULI. NO CONCERNS NOTED AT THIS TIME. CALL LIGHT IN REACH.
[2017-02-19 07:56] VITALS: BP 145/90
[2017-02-19 08:48] LABS: INR 1.11 (0.85-1.17); PROTIME 14.2 SECONDS (11.6-15.0)
[2017-02-19 08:52] LABS: ALBUMIN 2.8 g/dL (3.4-5.0); ALKALINE PHOSPHATASE 111 U/L (46-116); ALT (SGPT) 34 U/L (10-68); BILIRUBIN - TOTAL 0.14 mg/dL (0.2-1.3); CALC OSMOLALITY 279 mosm/kg (275-300); CALCIUM 8.6 mg/dL (8.5-10.1); CHLORIDE - SERUM 104 mmol/L (98-107); CREATININE - SERUM 0.6 mg/dL (0.6-1.3); GLUCOSE 86 mg/dL (74-106); POTASSIUM - SERUM 4.1 mmol/L (3.5-5.1); SODIUM 142 mmol/L (136-145); UREA NITROGEN 8 mg/dL (7-18); eGFR NON AFRICAN AMERICAN > 90 mL/min (90-120)
--- NOTE | 2017-02-19 12:07 | NUR ---
PT IN BED WITH EYES OPEN WATCHING TV. NO CONCERNS NOTED. AT BEDSIDE AT THIS TIME. CALL LIGHT IN REACH.
--- NOTE | 2017-02-19 18:09 | NUR ---
SITTING UP EATING SUPPER. DENIES NEEDS. CALL LIGHT IN REACH
--- NOTE | 2017-02-19 18:18 | NUR ---
PT IN BED READING A BOOK. NO SIGN/SYMPTOMS OF DISTRESS NOTED. NO CONCERNS MADE KNOWN AT THIS TIME. CALL LIGHT IN REACH.
--- NOTE | 2017-02-19 19:45 | NUR ---
REST IN BED AND READ BOOK.
[2017-02-19 23:31] VITALS: BP 101/67
--- NOTE | 2017-02-20 02:45 | NUR ---
PT RESTING, EYES CLOSED. BED LOW. CL IN REACH.
[2017-02-20 05:12] LABS: BASOPHILS 0.8 % (0-2); HEMATOCRIT 37.3 % (36.0-48.0); HEMOGLOBIN 11.7 g/dL (12-16); IMMATURE GRANULOCYTES 0.2 % (0-5); LYMPHOCYTES 27.8 % (15-50); MCH 28.4 pg (26.0-34.0); MCHC 31.4 g/dL (31.0-37.0); MCV 90.5 fL (80.0-100.0); MEAN PLATELET VOLUME 10.3 fL (7.4-10.4); MONOCYTES 8.5 % (2-11); NEUTROPHILS 59.7 % (40-80); PLATELET COUNT 178 10x3/uL (130-400); RBC 4.12 10x6/uL (4.00-5.40); RDW 13.8 % (11.5-14.5); WBC 6.3 10x3/uL (4.8-10.8)
[2017-02-20 05:34] LABS: CALC OSMOLALITY 286 mosm/kg (275-300); CALCIUM 8.2 mg/dL (8.5-10.1); CARBON DIOXIDE 33.2 mmol/L (21.0-32.0); CHLORIDE - SERUM 107 mmol/L (98-107); CREATININE - SERUM 0.7 mg/dL (0.6-1.3); GLUCOSE 93 mg/dL (74-106); POTASSIUM - SERUM 4.3 mmol/L (3.5-5.1); SODIUM 144 mmol/L (136-145); UREA NITROGEN 12 mg/dL (7-18); eGFR NON AFRICAN AMERICAN 88 mL/min (90-120)
--- NOTE | 2017-02-20 08:18 | NUR ---
SITTING UP EATING BREAKFAST. DENIES NEEDS. CALL LIGHT IN REACH
--- NOTE | 2017-02-20 09:00 | NUR ---
PRN PAIN MEDICATION GIVEN FOR GENERALIZED ALL OVER PAIN. PATIENT SITTING UP IN WHEELCHAIR AT BEDSIDE. CALL LIGHT WITHIN REACH.
[2017-02-20 09:56] VITALS: BP 131/77
--- NOTE | 2017-02-20 11:33 | NUR ---
PATIENT HELPED INTO BATHROOM. PATIENT ABLE TO STAND AND PIVOT UNTO TOILET. NEEDS HELPED WITH PULLING UP AND DOWN PANTS. IS CONTINANT OF URINE.
--- NOTE | 2017-02-20 16:10 | NUR ---
PRN PAIN MEDICATION GIVEN FOR GENERAL ALL OVER PAIN/DISC AFTER THERAPY
--- NOTE | 2017-02-20 19:30 | NUR ---
PT IS RESTING IN HER WC IN HER ROOM READING A BOOK. ALERT AND ORIENTED X 4. DENIES PAIN OR DISCOMFORT AT THIS TIME. NO NEEDS VOICED. SR'S ARE UP ON THE BED X 2. CALL LIGHT AND BEDSIDE TABLE ARE WITHIN EASY REACH.
[2017-02-20 19:45] VITALS: BP 119/74
--- NOTE | 2017-02-20 19:45 | NUR ---
PT. SITTING UP IN W/C NEXT TO HER BED AND READING A BOOK THAT IS ON HER BEDSIDE TABLE. NO VOICED NEEDS AT THIS TIME AND HER CALL LIGHT IS WITHIN REACH.
--- NOTE | 2017-02-20 21:09 | NUR ---
PT ASSISTED TO THE BATHROOM WITH SBA, MOD ASSIST WITH CLOTHING ONLY. LARGE FORMED BM NOTED. PT OPTED TO SIT AND READ A WHILE LONGER, SAYING SHE WANTED TO FINISH HER BOOK.
--- NOTE | 2017-02-21 00:01 | NUR ---
PT IS RESTING QUIETLY IN BED WITH EYES CLOSED. NO DISTRESS NOTED.
--- NOTE | 2017-02-21 01:40 | NUR ---
RESTING IN BED WITH EYES CLOSED.
--- NOTE | 2017-02-21 04:57 | NUR ---
RESTING IN BED WITH EYES CLOSED.
[2017-02-21 07:54] VITALS: BP 135/76
--- NOTE | 2017-02-21 08:00 | NUR ---
SITTING UP IN CHAIR.BREAKFAST GIVEN.NO TREMORS AT THIS TIME NOTED.CL IN REACH.
[2017-02-21 09:14] LABS: FOLATE (FOLIC ACID) - SERUM 6.5 ng/mL (>3.0)
--- NOTE | 2017-02-21 10:51 | NUR ---
Nutrition Follow Up: Pt was in therapy at the time of RD visit. Interview deferred. Pt is eating 61% meal avg on a regular diet. +BM 02/21/17. No new wt to assess. Meds and labs reviewed. Rec continue current diet. RD following.
--- NOTE | 2017-02-21 12:00 | NUR ---
SITTING UP FOR MEAL.MEAL SET-UP PROVIDED.CL IN REACH.
--- NOTE | 2017-02-21 16:00 | NUR ---
IN WC.DENIES NEEDS.CL IN REACH.
[2017-02-21 19:31] VITALS: BP 118/74
--- NOTE | 2017-02-21 19:40 | NUR ---
PT. SITTING UP IN W/C READING A BOOK. ASSESSMENT COMPLETED. NO VOICED NEEDS AT THIS TIME AND HER CALL LIGHT IS WITHIN REACH.
--- NOTE | 2017-02-21 23:07 | NUR ---
PT. IN BED WITH HOB UP FOR COMFORT. EYE CLOSED AND RESP. DEEP AND EVEN. CALL LIGHT WITHIN REACH.
--- NOTE | 2017-02-22 03:02 | NUR ---
PT. IN BED WITH HOB UP FOR COMFORT WITH EYES CLOSED AND RESP. DEEP AND EVEN. CALL LIGHT WITHIN REACH.
--- NOTE | 2017-02-22 07:42 | NUR ---
PT RESTING IN BED WITH EYES OPEN CALL LIGHT IN REACH NO PROBLEMS WILL MONITER
[2017-02-22 07:44] LABS: BASOPHILS 0.8 % (0-2); EOSINOPHILS 3.2 % (0-7); HEMATOCRIT 36.3 % (36.0-48.0); HEMOGLOBIN 11.4 g/dL (12-16); IMMATURE GRANULOCYTES 0.1 % (0-5); LYMPHOCYTES 22.3 % (15-50); MCH 28.2 pg (26.0-34.0); MCHC 31.4 g/dL (31.0-37.0); MCV 89.9 fL (80.0-100.0); MEAN PLATELET VOLUME 10.2 fL (7.4-10.4); MONOCYTES 6.9 % (2-11); NEUTROPHILS 66.7 % (40-80); PLATELET COUNT 193 10x3/uL (130-400); RBC 4.04 10x6/uL (4.00-5.40); RDW 13.9 % (11.5-14.5); WBC 7.5 10x3/uL (4.8-10.8)
[2017-02-22 07:53] LABS: CALC OSMOLALITY 282 mosm/kg (275-300); CALCIUM 8.7 mg/dL (8.5-10.1); CARBON DIOXIDE 29.9 mmol/L (21.0-32.0); CHLORIDE - SERUM 106 mmol/L (98-107); CREATININE - SERUM 0.6 mg/dL (0.6-1.3); GLUCOSE 87 mg/dL (74-106); SODIUM 143 mmol/L (136-145); UREA NITROGEN 10 mg/dL (7-18); eGFR NON AFRICAN AMERICAN > 90 mL/min (90-120)
[2017-02-22 08:23] VITALS: BP 135/76
--- NOTE | 2017-02-22 11:45 | NUR ---
SITTING UP IN WC READY FOR LUNCH.
--- NOTE | 2017-02-22 14:05 | RHP ---
PATIENT: ROGER FARRELL MEDICAL RECORD: [id number] ACCOUNT: [id number] LOCATION:[facility]1113 : 47 ADMISSION DATE: 02/09/17 REHABILITATION HISTORY AND PHYSICAL EXAMINATION POST ADMISSION PHYSICIAN EXAMINATION Post-admission Physical Examination and History and Physical DATE OF ADMISSION: 02/09/2017 ADMITTING DIAGNOSIS: Functional quadriplegia. HISTORY OF PRESENT ILLNESS: The patient is a 71-year-old female patient admitted to inpatient rehab with functional quadriplegia, acute mental status changes and hyponatremia. She was admitted in the Emergency Room with confusion and generalized weakness. She was unable to provide any history other than she does not feel good, has history of remote CVA and some type of anoxic brain injury from back in 2006. She says that she has not felt well for the last couple of months and she does well at times, but then declines. Her has helped her with ADLs. She was found to be hyponatremic with sodium of 127. Chest x-ray showed biapical pleural thickening, emphysematous changes were noted throughout both lungs and scarring, particularly with the upper lobes. There were no focal areas of consolidation. There is a stable blunting of her left costophrenic angle secondary to scarring versus trace pleural effusion. She was admitted for electrolyte imbalance and further monitoring. Prior to admit, she was moderately independent with a rolling walker for ADLs and mobility. Currently, she is moderate to max assist for ADLs and mobility. She is moderate assist for sit to stand position with fair balance, but is very weak on transfers. She was a patient in the rehab in October of this year, was discharged home with home health care. Her goal is to return home with her spouse and get back to her prior level of functioning or better if possible. COMORBIDITIES: Include hyponatremia, weakness, fatigue, seizure disorder, chronic cerebellar stroke, hypothyroidism, COPD, AFib, UTI, syncope, emphysema, trace pleural fluid, gastroesophageal reflux disease, anxiety, chronic pain, history of anoxic brain injury, fibromyalgia, depression, and history of TB. PAST MEDICAL HISTORY: Significant for CVA, cataracts, history of atrial fibrillation, syncope, emphysema, got a history of depression. PAST SURGICAL HISTORY: Includes lobectomy, pneumonia, bilateral rhinal reduction windows, anterior cervical discectomy, ganglion cyst removal, she has had a Medtronic implant for sacral nerve damage and an anterior and posterior ENT repair with mesh. She has also had Botox injection and cataract removal. ALLERGIES: ANY TYPE OF MUSCLE RELAXER, SLEEP AID, SULFA, STADOL, LATEX, DEMEROL, HYDROCODONE, VALIUM, AND EPINEPHRINE. CURRENT MEDICATIONS: Include omega-3 daily. She is on Zetia 10 mg daily, Protonix 40 mg daily, Os-Rodney 500 mg daily, Rythmol 225 b.i.d. She is on Imitrex as needed for severe headache. She is on Lyrica 50 mg t.i.d., Remeron 30 mg q.h.s., Prozac 20 mg t.i.d., Depakote 500 mg b.i.d., Eliquis 5 mg b.i.d. polyethylene glycol 17 g in 8 ounces of water daily. HABITS: No alcohol or tobacco use. HISTORY AND PHYSICAL [id number] ROGER FARRELL FAMILY HISTORY: Noncontributory. SOCIAL HISTORY: The patient hopes to return back home and get back to her prior level of functioning and return to her . REVIEW OF SYSTEMS: GENERAL: Does complain of weakness and fatigue. HEENT: She denies cold, cough, or congestion. CARDIOVASCULAR: Denies any chest pain. LUNGS: Does complain of occasional shortness of breath. PHYSICAL EXAMINATION: VITAL SIGNS: Stable, afebrile. GENERAL: A small female, in no acute distress, alert upon exam. HEENT: Normocephalic and atraumatic. Mucosa moist. NECK: Supple. No lymphadenopathy. LUNGS: Clear in upper machuca. HEART: Irregular rate and rhythm. ABDOMEN: Benign. EXTREMITIES: No clubbing, cyanosis or edema. NEUROLOGIC: Slow to mentate. LABORATORY DATA: Her white count was 4.9, H&H of 12 and 39, and platelet count was noted to be 235. Her sodium is 139, potassium 3.7, BUN and creatinine of 5 and 0.5 and blood sugar is noted to be 93. ASSESSMENT: This is a 71-year-old female patient admitted to rehab with a working diagnosis of functional quadriplegia. The patient has potential to make improvement. We instituted the following multidisciplinary therapies including, but not limited to physical, occupational, respiratory, speech, nutritional services, prosthetics and orthotics. Given her complex condition and risk for more complications, rehabilitation services cannot be provided at a lower level of care such as a long term facility. PLAN: 1. Admit to [facility] rehab for intensive inpatient therapy to include the following disciplines: A. Physical therapy to improve gait, all transfer skills and bed mobility to a modified independent level. B. Occupational therapy to improve activities of daily living to a modified independent level. C. Case management to assist with discharge planning and placement options. D. Nutrition to assist with nutritional needs. E. Rehabilitation nursing to assist in monitoring the patient's underlying medical conditions and to assist with any type of bowel or bladder management. 2. The patient's current medications and medical care will be continued. 3. The patient will be placed on standard fall precautions. 4. The patient's estimated length of stay is approximately 7-10 days. 5. Discuss this patient during care team staff meeting this week. TRANSINT:[id number] Voice Confirmation ID: [id number] DOCUMENT ID: [id number] JANIS notes whether there has been none or any medical/functional HISTORY AND PHYSICAL [id number] ROGER FARRELL change since admission: - JANIS attests patient continues to be appropriate for IRF: - MARIBETH FRANCISCO MD at 1405 CC: [id number] DICTATION DATE: 02/10/17 0850 ELECTRONIC DIE MAKER: 02/10/17 1014 ADM IN [id number] [place] [address]
--- NOTE | 2017-02-22 15:53 | NUR ---
CARE TEAM MEETING: PATIENT PROGRESSING IN THERAPY. TENATIVE DISCHARGE DATE IS 02/24/17. PATIENTS PLANS ARE TO RETURN HOME WITH FAMILY. WILL CONTINUE TO FOLLOW WITH PATIENT.
--- NOTE | 2017-02-22 17:16 | NUR ---
SPOKE WITH PATIENT SPOUSE. DISCHARGE DATE IS 02/24/17. HE HAS DECLINED HOME HEALTH HE HAS MADE ARRANGEMENTS FOR PATIENT TO GO TO OUTPATIENT AT [facility]. WILL CONTINUE TO FOLLOW WITH PATIENT
--- NOTE | 2017-02-22 17:19 | NUR ---
PT RESTING IN W/C AT BEDSIDE CALL LIGHT IN REACH IN ROOM NO PROBLEMS WILL MONITER
--- NOTE | 2017-02-22 19:30 | NUR ---
RECIEVED UP IN W/ WITH EYES OPEN , TV ON AND APPEARS TO BE READING A BOOK. ALERT AND ORIENTED. PLEASANT AND TALKATIVE. DENIES ANY NEEDS AT THIS TIME. CALL LIGHT IN REAC AND OVERBED TABLE IN FRONT OF HER.
[2017-02-22 19:55] VITALS: BP 102/59
--- NOTE | 2017-02-22 21:46 | NUR ---
ASSISTED TO TOILET AND INTO BED CLOTHES. DIFFICULTY BARRING WEIGHT FOR VERY LONG. ASSISTED INTO BED. CALL LIGHT AND OVERBED TABLE PLACED IN REACH.
--- NOTE | 2017-02-23 01:11 | NUR ---
RESTING IN BED WITH EYES CLOSED. LAYING ON BACK WIUTH HEAD OF BED ELEVATED TO 20 DEGREES. CALL LIGHTA ND OVERBED TABLE IN REACH.
--- NOTE | 2017-02-23 04:45 | NUR ---
RESTING IN BED WITH EYES CLOSED. NO S/S OF DISTRESS OBSERVED. CALL LIGHT AND OVERBED TABLE IN REACH.
--- NOTE | 2017-02-23 08:35 | NUR ---
PT REQ AND REC'D PRN IMITREX INJ WIHT AM MEDICATIONS. PT DENIES FURTHER NEEDS AT THIS TIME. BED LOW. CL IN REACH. WCTM.
[2017-02-23 09:05] VITALS: BP 148/91
[2017-02-23 11:16] LABS: PORPH 24HR - COPROPO III 23 ug/L (Undefined); PORPH 24HR - COPROPOR III 29 ug/24 hr (0-74); PORPH 24HR - COPROPORP I 11 ug/24 hr (0-24); PORPH 24HR - COPROPORPH I 9 ug/L (Undefined); PORPH 24HR - HEPTACARB <1 ug/24 hr (0-4); PORPH 24HR - HEPTACARBOXY <1 ug/L (Undefined); PORPH 24HR - HEXACARB <1 ug/24 hr (0-1); PORPH 24HR - HEXACARBOXYL <1 ug/L (Undefined); PORPH 24HR - PENTACARB <1 ug/24 hr (0-4); PORPH 24HR - PENTACARBOXY <1 ug/L (Undefined); PORPH 24HR - UROPOR 2 ug/L (Undefined); PORPH 24HR - UROPORPH 3 ug/24 hr (0-24)
--- NOTE | 2017-02-23 12:15 | NUR ---
PT EATING LUNCH. FAMILY ASSISTING. WCTM.
--- NOTE | 2017-02-23 15:37 | NUR ---
PT REQ AND REC'D PRN FIORCET. PT SITTING UP IN WC AT THIS TIME. PT DENIES FURTHER NEEDS. WCTM.
--- NOTE | 2017-02-23 19:42 | NUR ---
RECIEVED UP IN CHAIR WITH OVERBED TABLE IN REACH. APPEARS TO BE READING A BOOK. ASSISTED TO TOILET. REQUIRED SUPERVISION ONLY WITH TRANSFERS. ASSISTED TRISH IN ROOM AND OVERBED TABLE PUT IN FRONT OF HER PER REQUEST. CALL LIGHT IN REACH
[2017-02-23 19:43] VITALS: BP 102/60
--- NOTE | 2017-02-23 22:38 | NUR ---
RESTING IN BED WITH EYES CLOSED. NO S/S OF DISTRESS OBSERVED.INCONTINENT OF BLADDER WITH LISA CARE PROVIDED. CALL LIGHT AND OVERBED TABLE IN REACH
--- NOTE | 2017-02-24 02:11 | NUR ---
RESTING IN BED WITH EYES CLOSED. NO S/S OF DISTRESS OBSERVED. CALL LIGHT AND OVERBED TABLE IN REACH.
[2017-02-24 06:26] LABS: CALC OSMOLALITY 283 mosm/kg (275-300); CALCIUM 8.7 mg/dL (8.5-10.1); CARBON DIOXIDE 29.5 mmol/L (21.0-32.0); CHLORIDE - SERUM 105 mmol/L (98-107); CREATININE - SERUM 0.7 mg/dL (0.6-1.3); GLUCOSE 91 mg/dL (74-106); POTASSIUM - SERUM 4.2 mmol/L (3.5-5.1); SODIUM 143 mmol/L (136-145); UREA NITROGEN 11 mg/dL (7-18); eGFR NON AFRICAN AMERICAN 88 mL/min (90-120)
[2017-02-24 06:36] LABS: HEMATOCRIT 36.9 % (36.0-48.0); HEMOGLOBIN 11.9 g/dL (12-16); LYMPHOCYTES 25.5 % (15-50); MCH 28.5 pg (26.0-34.0); MCHC 32.2 g/dL (31.0-37.0); MCV 88.3 fL (80.0-100.0); MEAN PLATELET VOLUME 9.8 fL (7.4-10.4); NEUTROPHILS 63.4 % (40-80); PLATELET COUNT 185 10x3/uL (130-400); RBC 4.18 10x6/uL (4.00-5.40); RDW 13.6 % (11.5-14.5); WBC 6.2 10x3/uL (4.8-10.8)
--- NOTE | 2017-02-24 08:02 | NUR ---
PT AM MEDS ADMINISTERED. PT DENIES NEEDS. WCTM.
[2017-02-24] MEDS ORDERED: ESGIC TABLET1 TAB PO (08:28)
[2017-02-24 09:08] VITALS: BP 134/70
--- NOTE | 2017-02-24 09:19 | NUR ---
PATIENT DISCHARGING HOME TODAY WITH FAMILY. FAMILY DECLINES HOME HEALTH AT THIS TIME. SPOUSE HAS HER SCHEDULED TO GO TO [facility] FOR THERAPY. NO NEW DME NEEDED AT THIS TIME. DR. ERICKSON/ DOLORES TAN APN 03/02/17 @ 1:45. [facility] FORM SIGNED, EXPLAINED AND FILED IN CHART.
--- NOTE | 2017-02-24 12:00 | NUR ---
PT DISCHARGED HOME WIHT FAMILY VIA WC. MEDS CALLED IN TO PHARMACY. DISCHARGE INSTRUCTIONS REV'D WITH PT.
== END 2017-02-24 13:30 | disposition home or self-care (01) | DRG 52 ==
LOC: D.REHAB 16:53
PROVIDERS: Psychiatry & Neurology Neurology; ADMIT Emergency Medicine
DX: R53.2 Functional quadriplegia (principal); I63.8 Other cerebral infarction; E87.1 Hypo-osmolality and hyponatremia; N39.0 Urinary tract infection, site not specified; M79.7 Fibromyalgia; R41.82 Altered mental status, unspecified; R53.1 Weakness; R53.83 Other fatigue; G40.909 Epilepsy, unspecified, not intractable, without status epilepticus; E03.9 Hypothyroidism, unspecified; I48.91 Unspecified atrial fibrillation; R55 Syncope and collapse; J43.9 Emphysema, unspecified; K21.9 Gastro-esophageal reflux disease without esophagitis; F41.8 Other specified anxiety disorders

== ENCOUNTER 2017-04-07 10:37 | Emergency (ER) | payer MEDICARE, OTHER ==
[2017-02-10 10:45] VITALS: BMI 21.0
[~2017-04-07 10:37] MED LIST changes: +ESGIC TABLET1 TAB PO
[2017-04-07 11:36] LABS: BASOPHILS 0.6 % (0-2); EOSINOPHILS 2.3 % (0-7); HEMATOCRIT 40.6 % (36.0-48.0); HEMOGLOBIN 13.1 g/dL (12-16); IMMATURE GRANULOCYTES 0.2 % (0-5); LYMPHOCYTES 29.6 % (15-50); MCH 28.3 pg (26.0-34.0); MCHC 32.3 g/dL (31.0-37.0); MCV 87.7 fL (80.0-100.0); MONOCYTES 8.6 % (2-11); NEUTROPHILS 58.7 % (40-80); PLATELET COUNT 198 10x3/uL (130-400); RBC 4.63 10x6/uL (4.00-5.40); RDW 17.1 % (11.5-14.5); WBC 4.8 10x3/uL (4.8-10.8)
[2017-04-07 12:06] LABS: ALBUMIN 2.8 g/dL (3.4-5.0); ALKALINE PHOSPHATASE 107 U/L (46-116); ALT (SGPT) 54 U/L (10-68); CALC OSMOLALITY 279 mosm/kg (275-300); CALCIUM 8.9 mg/dL (8.5-10.1); CARBON DIOXIDE 28.6 mmol/L (21.0-32.0); CHLORIDE - SERUM 105 mmol/L (98-107); CREATININE - SERUM 0.7 mg/dL (0.6-1.3); GLUCOSE 122 mg/dL (74-106); POTASSIUM - SERUM 4.2 mmol/L (3.5-5.1); PROTEIN - SERUM 6.5 g/dL (6.4-8.2); SODIUM 141 mmol/L (136-145); UREA NITROGEN 7 mg/dL (7-18); eGFR NON AFRICAN AMERICAN 88 mL/min (90-120)
[2017-04-07 12:24] LABS: APPEARANCE CLEAR (CLEAR); BILIRUBIN NEGATIVE (NEGATIVE); COLOR YELLOW (YELLOW); GLUCOSE NEGATIVE (NEGATIVE); KETONE NEGATIVE (NEGATIVE); NITRITE NEGATIVE (NEGATIVE); PROTEIN NEGATIVE (NEGATIVE); UROBILINOGEN NORMAL (NORMAL)
== END 2017-04-07 16:50 | disposition home or self-care (01) ==
LOC: D.ER 10:37
PROVIDERS: Emergency Medicine
DX: R53.1 Weakness (principal); J44.9 Chronic obstructive pulmonary disease, unspecified; Z86.73 Personal history of transient ischemic attack (TIA), and cerebral infarction without residual deficits; Z87.820 Personal history of traumatic brain injury

== ENCOUNTER 2017-04-22 10:15 | Emergency (ER) | payer MEDICARE, OTHER ==
[2017-02-10 10:45] VITALS: BMI 21.0
[2017-04-22 10:56] LABS: EOSINOPHILS 2.4 % (0-7); HEMATOCRIT 44.4 % (36.0-48.0); HEMOGLOBIN 14.6 g/dL (12-16); IMMATURE GRANULOCYTES 0.5 % (0-5); LYMPHOCYTES 28.5 % (15-50); MCH 28.9 pg (26.0-34.0); MCHC 32.9 g/dL (31.0-37.0); MCV 87.9 fL (80.0-100.0); MEAN PLATELET VOLUME 10.3 fL (7.4-10.4); MONOCYTES 9.7 % (2-11); NEUTROPHILS 57.9 % (40-80); PLATELET COUNT 178 10x3/uL (130-400); RBC 5.05 10x6/uL (4.00-5.40); RDW 18.9 % (11.5-14.5); WBC 5.8 10x3/uL (4.8-10.8)
[2017-04-22 11:35] LABS: APPEARANCE CLEAR (CLEAR); BILIRUBIN NEGATIVE (NEGATIVE); COLOR STRAW (YELLOW); GLUCOSE NEGATIVE (NEGATIVE); KETONE NEGATIVE (NEGATIVE); NITRITE NEGATIVE (NEGATIVE); PROTEIN NEGATIVE (NEGATIVE); UROBILINOGEN NORMAL (NORMAL)
[2017-04-22 11:36] LABS: BACTERIA FEW /hpf (NONE SEEN); EPITHELIAL CELLS 0-5 /hpf (0-5); RED CELLS - URINE 0-5 /hpf (0-5); WHITE CELLS - URINE 0-5 /hpf (0-5)
[2017-04-22 11:49] LABS: ALBUMIN 2.9 g/dL (3.4-5.0); ALKALINE PHOSPHATASE 125 U/L (46-116); ALT (SGPT) 31 U/L (10-68); BILIRUBIN - TOTAL 0.12 mg/dL (0.2-1.3); CALC OSMOLALITY 278 mosm/kg (275-300); CALCIUM 9.1 mg/dL (8.5-10.1); CARBON DIOXIDE 29.2 mmol/L (21.0-32.0); CHLORIDE - SERUM 104 mmol/L (98-107); CREATININE - SERUM 0.8 mg/dL (0.6-1.3); GLUCOSE 105 mg/dL (74-106); POTASSIUM - SERUM 4.4 mmol/L (3.5-5.1); SODIUM 141 mmol/L (136-145); UREA NITROGEN 6 mg/dL (7-18); eGFR NON AFRICAN AMERICAN 75 mL/min (90-120)
== END 2017-04-22 15:17 | disposition home or self-care (01) ==
LOC: D.ER 10:15
PROVIDERS: Family Medicine
DX: R53.1 Weakness (principal); J44.9 Chronic obstructive pulmonary disease, unspecified; Z86.73 Personal history of transient ischemic attack (TIA), and cerebral infarction without residual deficits

== ENCOUNTER 2017-05-26 09:55 | Inpatient (IN) | payer MEDICARE, OTHER ==
[~2017-05-26] VITALS: Ht 157.5 cm; Wt 56.2 kg
[2017-05-26 10:27] LABS: BASOPHILS 0.5 % (0-2); EOSINOPHILS 2.5 % (0-7); HEMATOCRIT 41.3 % (36.0-48.0); IMMATURE GRANULOCYTES 0.5 % (0-5); LYMPHOCYTES 17.8 % (15-50); MCHC 31.5 g/dL (31.0-37.0); MCV 92.2 fL (80.0-100.0); MEAN PLATELET VOLUME 9.9 fL (7.4-10.4); MONOCYTES 7.7 % (2-11); PLATELET COUNT 210 10x3/uL (130-400); RBC 4.48 10x6/uL (4.00-5.40); RDW 17.7 % (11.5-14.5); WBC 8.5 10x3/uL (4.8-10.8)
[2017-05-26 10:45] LABS: APPEARANCE HAZY (CLEAR); BILIRUBIN NEGATIVE (NEGATIVE); COLOR YELLOW (YELLOW); GLUCOSE NEGATIVE (NEGATIVE); KETONE NEGATIVE (NEGATIVE); NITRITE NEGATIVE (NEGATIVE); PROTEIN NEGATIVE (NEGATIVE); SPECIFIC GRAVITY 1.005 (1.005-1.020); UROBILINOGEN NORMAL (NORMAL)
[2017-05-26 10:59] LABS: ALBUMIN 2.5 g/dL (3.4-5.0); ALKALINE PHOSPHATASE 119 U/L (46-116); ALT (SGPT) 23 U/L (10-68); CALC OSMOLALITY 280 mosm/kg (275-300); CARBON DIOXIDE 31.5 mmol/L (21.0-32.0); CHLORIDE - SERUM 105 mmol/L (98-107); CREATININE - SERUM 0.5 mg/dL (0.6-1.3); GLUCOSE 104 mg/dL (74-106); POTASSIUM - SERUM 4.4 mmol/L (3.5-5.1); PROTEIN - SERUM 6.7 g/dL (6.4-8.2); SODIUM 142 mmol/L (136-145); UREA NITROGEN 6 mg/dL (7-18); eGFR NON AFRICAN AMERICAN > 90 mL/min (90-120)
--- NOTE | 2017-05-26 16:30 | NUR ---
PT ARRIVED TO UNIT VIA STRETHCER ACCOMPANIED BY ER STAFF MEMBERS. ER STAFF STATES THEY JUST CHANGED HER DUE TO PT BEING INCONTINENT. PT IS ALERT AND ORIENTED. ON 02 AT 2L VIA NC. IV SEEN TO RIGHT HAND THAT IS CURRENTLY SALINE LOCKED. NELL HONG RN WILL BE NURSE. THIS NURSE WILL COMPLETE ADMISSION ASSESSMENT. IS AT BEDSIDE. WILL CONTINUE TO MONITOR.
[2017-05-26 16:31] VITALS: BP 112/64; BMI 21.4
[2017-05-26] MEDS ORDERED: MACROBID100 MG PO (17:09)
--- NOTE | 2017-05-26 17:37 | NUR ---
PT IN BED EATING DINNER AT THIS TIME. NO NEEDS. AT BEDSIDE. UNABLE TO HAND RICEPHIN AT THIS TIME DO TO NOT HAVING IT. PHARMACY NOTIFIED. WILL CONTINUE TO MONITOR
--- NOTE | 2017-05-27 00:24 | NUR ---
PT IN BED RESTING QUIETLY. BREATHING EVEN AND UNLABORED. BED IN LOW POSITION, CALL LIGHT WITHIN REACH. WILL CPOC.
[2017-05-27 02:29] VITALS: BP 113/57
--- NOTE | 2017-05-27 02:32 | NUR ---
PT IN BED. PROVIDED BED LEIJA PER REQUEST. DENIES FURTHER NEEDS AT THIS TIME.
[2017-05-27 04:59] VITALS: BP 95/58
--- NOTE | 2017-05-27 06:30 | NUR ---
INFORMED OF HIGH AMMONIA LEVEL (240) YESTERDAY NIGHT AT 1999. CALLED MARIBETH BRYSON IN THE ER. KAYEXALATE WAS ORDERED. A ONE TIME DOSE OF 30 WAS ORDERED AND GIVEN ORDERED. LAB RESULTS FOR THIS MORNING CAME BACK AMMONIA LEVEL IS 21. A REDRAW WAS ORDERED TO CONFIRM THIS RESULT. CURRENTLY AWAITING REDRAW.
--- NOTE | 2017-05-27 07:10 | NUR ---
RECEIVED REPORT. ASSUMED CARE OF PATIENT. CALL LIGHT WITHIN REACH. EYES OPEN. RESP EVEN AND UNLABORED. AT BEDSIDE. NO DISTRESS. REQUESTING EGGCRATE MATTRESS FOR BED AND HEEL PROTECTORS.
--- NOTE | 2017-05-27 07:45 | NUR ---
HEEL PROTECTORS APPLIED TO BILATERAL HEELS AT THIS TIME. NO DISTRESS. DTI TO BILATERAL HEELS.
[2017-05-27 08:35] VITALS: BP 114/64
[2017-05-27 11:04] VITALS: Ht 157.5 cm; Wt 56.2 kg
--- NOTE | 2017-05-27 11:17 | NUR ---
CM RECEIVED TC FROM PRIMARY NURSE, ANIA, AT 1000. PATIENT'S SPOUSE IS REQUESTING TO SPEAK WITH TIRE CORD WEAVER. CHART REVIEWED. 1015- CM MET WITH PATIENT'S , JB, AT THE BEDSIDE. HE STATES HE WOULD LIKE FOR THE PATIENT TO RETURN TO [facility] AND REHAB AT DISCHARGE. SHE IS PRESENTLY ON SERVICE WITH [facility]. SHE IS RECEIVING SN/ PT/OT AND MAIL DISTRIBUTION CLERK SERVICES. SHE IS PROGRESSING SLOWLY WITH PHYSICAL THERAPY. REPORTS PT'S O2 SAT AT HOME WAS 78% AT HOME. SHE HAS HOME O2 PRIMARILY AT NIGHT AT 2/L. SHE HAD SLEPT 12 HOURS AND HAD ALTERED MENTAL STATUS. PCP- DR MATHEUS ERICKSON DME PROVIDER IS [facility] CM ADVISED THE THE PATIENT IS IN OBSERVATION STATUS AT THIS TIME. EXPLAINED WE CAN MAKE A REFERRAL TO [facility] BUT NO IS AVAILABLE ON THE WEEKEND FOR ADMISSION. CM TOLD THE THE PATIENT IS IN OBSERVATION STATUS . EXPLAINED SHE WOULD NEED TO BE INPATIENT FOR MEDICARE TO PAY FOR SKILLED REHAB SERVICES. HE ASK ABOUT IP REHAB (ACUTE). EXPLAINED PATIENT WILL NEED TO BE SEEN BY ADMITTING MD AND DX W/ PLAN OF CARE NEEDS TO BE DETERMINED. EXPLAINED SO FAR TESTING HAD NOT REVEALED A DX. ADVISED HIM TO SPEAK WITH ON HIS ROUNDS. TC TO [facility]. CM SPOKE WITH LAURE. ADVISED PATIENT WAS ADMITTED LAST NIGHT. SHE IS ON ACTIVE SERVICE FOR SN/ PT/OT/ MAIL DISTRIBUTION CLERK SERVICES. PATIENT IS TAKING AFEW STEPS. STANDS TO PIVOT. SHE ALSO ADVISED THE PATIENT HAS A ANOXIC JEANNETTE INJURY HX SECONDARY TO OVERSEDATION. HAS FLAT AFFECT. CAN COMMUNICATE & ANSWERS QUESTIONS. DOES MOST OF THE TALKING. WATCH THE SKIN ON HER HEELS. CM TO FOLLOW
[2017-05-27 12:12] VITALS: BP 100/58
--- NOTE | 2017-05-27 13:15 | NUR ---
INCONTINENT CARE PROVIDED TO PATIENT. TURNED AND REPOSITIONED. NO DISTRESS. CALL LIGHT WITHIN REACH.
--- NOTE | 2017-05-27 14:05 | NUR ---
MEDICATED FOR HEADACHED AT THIS TIME. NO DISTRESS.
[2017-05-27 15:52] LABS: CKMB 0.5 U/L (0.0-3.6); CREATINE KINASE 41 UL (21-215)
[2017-05-27 15:55] LABS: TROPONIN-I < 0.017 ng/mL (0.000-0.060)
[2017-05-27 16:36] VITALS: BP 119/64
--- NOTE | 2017-05-27 17:42 | NUR ---
MEDICATED FOR HEADACHE AT THIS TIME. NO DISTRESS.
--- NOTE | 2017-05-27 18:15 | NUR ---
EGGCRATE MATTRESS APPLIED TO BED. INCONTINENT CARE PROVIDED. TURNED AND REPOSITIONED. AT BEDSIDE. CALL LIGHT WITHIN REACH. NO DISTRESS.
[2017-05-27 21:15] VITALS: BP 103/44
[2017-05-27 21:52] LABS: CREATINE KINASE 106 UL (21-215); TROPONIN-I < 0.017 ng/mL (0.000-0.060)
--- NOTE | 2017-05-27 23:46 | NUR ---
PT IN BED RESTING. WILL CONTINUE TO MONITOR.
--- NOTE | 2017-05-28 | NUR ---
PT RESTING WELL, NO CHANGES NOTED. ASSESSMENTS UNCHANGED. CALL LIGHT WITHIN REACH. WILL MONITOR.
[2017-05-28 00:50] VITALS: BP 112/59
--- NOTE | 2017-05-28 01:52 | NUR ---
PT IN BED RESTING AT THIS TIME
[2017-05-28 03:40] LABS: BASOPHILS 0.1 % (0-2); EOSINOPHILS 0.3 % (0-7); HEMATOCRIT 35.7 % (36.0-48.0); HEMOGLOBIN 11.3 g/dL (12-16); IMMATURE GRANULOCYTES 0.9 % (0-5); MCH 28.5 pg (26.0-34.0); MCHC 31.7 g/dL (31.0-37.0); MCV 89.9 fL (80.0-100.0); MEAN PLATELET VOLUME 10.7 fL (7.4-10.4); MONOCYTES 4.4 % (2-11); NEUTROPHILS 80.3 % (40-80); PLATELET COUNT 166 10x3/uL (130-400); RBC 3.97 10x6/uL (4.00-5.40); RDW 17.4 % (11.5-14.5)
[2017-05-28 04:02] LABS: ALBUMIN 2.2 g/dL (3.4-5.0); ALKALINE PHOSPHATASE 95 U/L (46-116); ALT (SGPT) 18 U/L (10-68); BILIRUBIN - TOTAL 0.09 mg/dL (0.2-1.3); CALC OSMOLALITY 282 mosm/kg (275-300); CALCIUM 8.3 mg/dL (8.5-10.1); CARBON DIOXIDE 30.5 mmol/L (21.0-32.0); CHLORIDE - SERUM 105 mmol/L (98-107); CKMB 0.7 U/L (0.0-3.6); CREATINE KINASE 138 UL (21-215); CREATININE - SERUM 0.5 mg/dL (0.6-1.3); GLUCOSE 140 mg/dL (74-106); POTASSIUM - SERUM 3.4 mmol/L (3.5-5.1); PROTEIN - SERUM 5.8 g/dL (6.4-8.2); SODIUM 142 mmol/L (136-145); TROPONIN-I < 0.017 ng/mL (0.000-0.060); UREA NITROGEN 7 mg/dL (7-18); eGFR NON AFRICAN AMERICAN > 90 mL/min (90-120)
[2017-05-28 05:16] VITALS: BP 112/61
--- NOTE | 2017-05-28 07:10 | NUR ---
RECEIVED REPORT. ASSUMED CARE OF PATIENT. RESTING IN BED WITH EYES OPEN, FAMILY AT BEDSIDE. CALL LIGHT WITHIN REACH. NO DISTRESS.
--- NOTE | 2017-05-28 08:10 | NUR ---
MEDICATED FOR HEADACHE AT THIS TIME. NO DISTRESS. CALL LIGHT WITHIN REACH.
[2017-05-28 08:50] VITALS: BP 138/75
[2017-05-28 12:20] VITALS: BP 120/65
--- NOTE | 2017-05-28 12:25 | NUR ---
MEDICATED FOR HEADACHE AT THIS TIME. NO DISTRESS.
--- NOTE | 2017-05-28 14:23 | NUR ---
HERE FOR BEDSIDE ROUNDS. NO DISTRESS. CALL LIGHT WITHIN REACH.
--- NOTE | 2017-05-28 16:00 | NUR ---
INCONTINENT CARE PROVIDED. TURNED AND REPOSITIONED. CALL LIGHT WITHIN REACH.
[2017-05-28 16:39] VITALS: BP 101/55
--- NOTE | 2017-05-28 16:55 | NUR ---
MEDICATED FOR HEADACHE AT THIS TIME. NO DISTRESS.
[2017-05-28 20:00] VITALS: BP 101/53
--- NOTE | 2017-05-28 22:36 | NUR ---
INITIAL ROUNDS COMPLETED AT 1925 HRS. PT DENIED ANY DISCOMFORT. PT INCONTINENT OF URINE AT 2015 HRS. INCONTINENT CARE DONE. BUTTOCKS EXCORIATED. ASSESSMENT COMPLETED AFTER INCONTINENT CARE. VSS. IV TO R HAND SL. LUNGS DIMINISHED IN BASES BILAT. BUTTOCKS EXCORIATED. SR PER CM HR 87. BILAT HEELS IN HEEL PROTECTORS. APPROZ 1 CM RE AREA NOTED TO L HEEL AND APPROX 1CM BLACK AREA NOTED TO R HEEL. PT ALERT AND ORIENTED TO PERSON, PLACE AND TIME. PM MEDS GIVEN INCLUDING FIORECET FOR C/O MORGAN. PT CURENTLY RESTING WITH EYES CLOSED. RESP EVEN AND REGULAR. SR UP X2, CALL LIGHT WITHIN REACH.
[2017-05-29] VITALS: BP 117/71
--- NOTE | 2017-05-29 00:29 | NUR ---
VSS. NO CHANGE IN NEURO STATUS NOTED. PT CLEAN, AND DRY AT THIS TIME. WILL COONTINUE TO MONITOR.
--- NOTE | 2017-05-29 02:20 | NUR ---
PT RESTING WITH EYES CLOSED. RESP EVEN AND REGULAR. SR UP X2, CALL LIGHT WITHIN REACH.
[2017-05-29 04:00] VITALS: BP 122/68
--- NOTE | 2017-05-29 04:47 | NUR ---
PT INCONTINENT OF URINE. INCONTINENT CARE DONE. PT TOLERATED ACTIVITY WELL. FIORCET 1 PO GIVEN FOR C/O MORGAN. WILL CONTINUE TO MONITOR.
[2017-05-29 05:50] LABS: BASOPHILS 0.2 % (0-2); EOSINOPHILS 0 % (0-7); HEMATOCRIT 37.6 % (36.0-48.0); IMMATURE GRANULOCYTES 0.5 % (0-5); LYMPHOCYTES 21.9 % (15-50); MCH 28.8 pg (26.0-34.0); MCHC 31.9 g/dL (31.0-37.0); MCV 90.4 fL (80.0-100.0); MEAN PLATELET VOLUME 10.2 fL (7.4-10.4); NEUTROPHILS 73.4 % (40-80); RBC 4.16 10x6/uL (4.00-5.40); RDW 17.5 % (11.5-14.5); WBC 6.3 10x3/uL (4.8-10.8)
[2017-05-29 05:53] LABS: PLATELET COUNT 204 10x3/uL (130-400)
[2017-05-29 06:19] LABS: ALBUMIN 2.3 g/dL (3.4-5.0); ALKALINE PHOSPHATASE 90 U/L (46-116); ALT (SGPT) 18 U/L (10-68); CALC OSMOLALITY 277 mosm/kg (275-300); CARBON DIOXIDE 29.2 mmol/L (21.0-32.0); CHLORIDE - SERUM 102 mmol/L (98-107); CREATININE - SERUM 0.5 mg/dL (0.6-1.3); GLUCOSE 118 mg/dL (74-106); POTASSIUM - SERUM 4.1 mmol/L (3.5-5.1); PROTEIN - SERUM 6.2 g/dL (6.4-8.2); SODIUM 139 mmol/L (136-145); eGFR NON AFRICAN AMERICAN > 90 mL/min (90-120)
[2017-05-29 06:23] LABS: UREA NITROGEN 9 mg/dL (7-18)
--- NOTE | 2017-05-29 06:37 | NUR ---
VSS THROUGHOUT NIGHT. SR PER CM. PT STATES CONTINUES TO HAVE CHRONIC MORGAN. NO NEURO DEFICITS NOTED DURINGSHIFT. NEEDS MET; WILL CONTINUE TO MONITOR.
--- NOTE | 2017-05-29 07:16 | NUR ---
PT IN BED, WITH EYES CLOSE, EASILY AROUSES TO VOICE. RESP EVEN AND UNLABORED, PT DENIES ANY NEEDS AT THIS TIME CALL LIGHT IN REACH, NAD NOTED, WILL CONTINUE PLAN OF CARE.
[2017-05-29 08:27] VITALS: BP 157/88
--- NOTE | 2017-05-29 10:20 | NUR ---
ADMINISTERED FIORECET FOR PAIN LEVEL OF 8/10. PT IN BED, DENIES ANY OTHER NEEDS AT THIS TIME. CALL LIGHT IN REACH, NAD NOTED.
--- NOTE | 2017-05-29 10:51 | NUR ---
Nutrition follow-up: Diet: ADA consistent CHO PO intake ~75% of meals Labs reviewed Wt: 123# RDN visited with pt during meal rounds. Pt happy with meals and has a goood appetite at this time. RDN following.
[2017-05-29 11:57] VITALS: BP 97/55
--- NOTE | 2017-05-29 12:19 | NUR ---
Rehab Note- Acute Rehab Screen marco received. Visited with the patient, she has been a patient on the [facility] Acute rehab unit in the past with success. Spoke with ELEUTERIO Kenny and also ZAHIRA Weller about can admit the patient today. Thank you for this referral! Jenifer Dennis RN Clinical Liaison, [facility] Rehab
[2017-05-29] MEDS ORDERED: PREDNISONE10 MG PO ×2 (13:45→13:50)
[2017-05-29] MEDS ORDERED: ROCEPHIN 1 GM/D51 G1 IM (13:48)
--- NOTE | 2017-05-29 15:13 | NUR ---
PATIENT HAD OT AND PT EVALUATIONS COMPLETED. SHE WAS SCREENED BY [facility] THIS AM AND HAS BEEN ACCEPTED FOR DISCHARGE TO REHAB TODAY. ORDERS OBTAINED THIS PM.
--- NOTE | 2017-05-29 15:57 | NUR ---
Patient Name: ROGER FARRELL Encounter No: [id number] : 1945 Primary Insurance: MEDICARE A & B Anticipated DC Date: 05-29-2017 Planned Disposition: Inpatient Rehab External Planned Provider: [facility] INPATIENT REHAB DCP follow-up note: CM RECEIVED DISCHARGE ORDERS, CM SPOKE TO [facility] OF INPATIENT REHAB, THEY PLAN TO ACCEPT PT TODAY FOR REHAB. PT NOTIFIED, IN AGREEMENT WITH DISCHARGE TO INPATIENT REHAB. IMPORTANT MESSAGE FROM MEDICARE PROVIDED AND EXPLAINED. [facility] INPATIENT REHAB TO CONTACT MED 2 NURSE WITH ROOM NUMBER WHEN READY TO ACCEPT PT AND NURSE REPORT. Andrew Camacho, CASE MANAGEMENT
--- NOTE | 2017-05-29 16:39 | NUR ---
CALLED REPORT TO SHERRON PURCELL IN REHAB
--- NOTE | 2017-05-29 16:58 | NUR ---
PROVIDED VERBAL AND WRITTEN DICHARGE TEACHING TO PT AND AT BEDSIDE. JESSE VERBALIZED UNDERSTANDING REGARDING TEACHING. D/C RT WRIST IV, TIP INTACT. MENDEL DEL TORO TRANSFERED TO DOWN TO REHAB VIA BED.
--- NOTE | 2017-05-31 11:38 | CN ---
PATIENT NAME:ROGER RICO MEDICAL RECORD: [id number] : 47 LOCATION:D. D.2105 ADMIT DATE: 05/27/17 ACCOUNT: [id number] CONSULTING PHYSICIAN: JUANA RODRIGUEZ MD REFERRING PHYSICIAN: VANCE KIMBALL MD DATE OF CONSULTATION: 05/26/2017 CONSULT REQUESTING PHYSICIAN: Vance Kimball MD REASON FOR CONSULTATION: COPD. HISTORY OF PRESENT ILLNESS: Ms. Rico is a 71-year-old female. She is now awake and alert, but she is very lethargic. The history was taken mainly from the patient's . According to the , this morning, she was very sleepy and lethargic and she was a bit confused. The patient was brought into the ER for further evaluation. Denies any fever and chill. There is no cough, no sputum production, no headache. No associated nausea, vomiting or diarrhea. The patient was recently diagnosed with a urinary tract infection and she completed the course of antibiotic. REVIEW OF SYSTEMS: Mainly in the history of present illness. PAST MEDICAL HISTORY: 1. Seizure. 2. Chronic obstructive pulmonary disease. 3. Chronic hypoxic respiratory failure. 4. Gastroesophageal reflux disease. 5. History of bilateral effusion. 6. Congestive heart failure with diastolic dysfunction, EF of 60%. 7. History of Mycobacterium TB, status post partial lobectomy. 8. Critical illness myopathy and debility. 9. Seizure disorder. PAST SURGICAL HISTORY: 1. Left lower lobe lobectomy per Mycobacterium TB. 2. Pneumonia. 3. Bilateral rhinal reduction. 4. Anterior cervical discectomy. 5. Ganglion cyst removed. 6. Sacral nerve damage. 7. Sacral sacrocolpopexy. 8. Botox injection 9. Cataract surgery. ALLERGIES: SHE IS ALLERGIC TO SULFA, ACETAMINOPHEN, ARIPIPRAZOLE, BUTORPHANOL, CODEINE, EPINEPHRINE, HYDROCODONE, LASIX. MEDICATIONS: On [place] was reviewed. PERSONAL AND SOCIAL HISTORY: The patient is an ex-smoker. She is , lives with her . FAMILY HISTORY: Noncontributory. PHYSICAL EXAMINATION: CONSULT REPORT [id number] ROGER RICO GENERAL: Now, the patient is lethargic, but she is awake and alert. She is not in acute distress. VITAL SIGNS: The blood pressure is 126/84, pulse is 85 regular, temperature 97.1, SpO2 was 97% on 2 liters nasal cannula. HEENT: Conjunctivae pink, sclerae nonicteric. NECK: Supple, no JVD. CHEST: Excursion is minimal on both sides. There is no wheeze, no rales. HEART: Rhythm regular, normal sound, no murmur. ABDOMEN: Soft. Bowel sounds present. No hepatosplenomegaly. RECTAL: Deferred. EXTREMITIES: No cyanosis, no clubbing, no pedal edema. SKIN: Warm, normal turgor. CENTRAL NERVOUS SYSTEM: The patient is awake and alert. There is no obvious cranial nerve abnormality. The gait was not tested. IMAGIN. CT scan of the head did not show anything acute. 2. Chest x-ray: There are emphysematous changes. There is stable apical scarring. 3. CTA of the chest, there were no PE. There were nonspecific scarring in the left and right apex and there is an area of consolidation of 2.7 cm in the left apex. OTHER LABORATORY DATA: CBC: WBC 8.5, hemoglobin 13, hematocrit 41.3, the platelet count is 210. Chemistry: Sodium 142, potassium 4.4, BUN is 6, creatinine 0.5. ABG: The pH is 7.42, pCO2 of 48.7 and the pO2 is 101, bicarb is 31.7. IMPRESSION: 1. Acute mental status changes. 2. Chronic obstructive pulmonary disease, acute exacerbation, left apical scarring and possible pneumonitis. 3. Chronic hypoxic respiratory failure. 4. Urinary tract infection. 5. Congestive heart failure with diastolic dysfunction. RECOMMENDATIONS: 1. Start on Rocephin. Continue methylprednisolone IV, albuterol/ipratropium nebulizer, start Brovana and budesonide nebulizer. 2. Follow up labs in the morning. Check the ammonia level. Discussed with the patient's . 3. Dr. Kimball, thank you for involving me in the care of Mrs. Rico. TRANSINT:[id number] Voice Confirmation ID: [id number] DOCUMENT ID: [id number] JUANA RODRIGUEZ MD at 1138 CC: VANCE KIMBALL MD [id number] DICTATION DATE: 05/26/171652 WELLNESS TRAINER: 05/26/171938 DIS IN 05/29/17 [facility] [address] [place] [address]
== END 2017-05-29 17:00 | DRG 193 ==
LOC: D.ER 09:55 → OBSVTIME 13:59 → D.M2 13:59
PROVIDERS: Family Medicine; ADMIT Family Medicine Adult Medicine
DX: J18.9 Pneumonia, unspecified organism (principal); R53.2 Functional quadriplegia; J44.0 Chronic obstructive pulmonary disease with (acute) lower respiratory infection; J44.1 Chronic obstructive pulmonary disease with (acute) exacerbation; J96.11 Chronic respiratory failure with hypoxia; N39.0 Urinary tract infection, site not specified; E72.20 Disorder of urea cycle metabolism, unspecified; I50.32 Chronic diastolic (congestive) heart failure; K21.9 Gastro-esophageal reflux disease without esophagitis; G40.909 Epilepsy, unspecified, not intractable, without status epilepticus; Z86.73 Personal history of transient ischemic attack (TIA), and cerebral infarction without residual deficits; Z87.891 Personal history of nicotine dependence; R41.82 Altered mental status, unspecified

== ENCOUNTER 2017-05-29 17:15 | Inpatient (IN) | payer MEDICARE, OTHER ==
[~2017-05-29] VITALS: Ht 157.5 cm; Wt 52.2 kg
--- NOTE | 2017-05-29 17:00 | NUR ---
PATIENT ADMITTED FROM ROOM 2105 TO ROOM 1113A. PATIENT BROUGHT DOWN IN HOSPITAL BED. PATIENT IS ALERT/ORIENT. AT BEDSIDE DIAG:ACUTE EXACERBATION COPD. VITAL SIGNS TAKEN. SIGNED ADMISSION PAPERS
[~2017-05-29 17:15] MED LIST changes: +MACROBID100 MG PO; +PREDNISONE10 MG PO; +ROCEPHIN 1 GM/D51 G1 IM
[2017-05-29 17:27] VITALS: BP 102/62
--- NOTE | 2017-05-29 18:37 | NUR ---
RESTING QUIETLY IN BED. CALL LIGHT IN REACH. BED IN LOWEST POSITION
[2017-05-29 20:41] VITALS: BP 104/66
--- NOTE | 2017-05-30 04:28 | NUR ---
RECIEVED UP IN BED WITH EYES OPEN AND TV ON.QUIET WITH FLAT AFFECT.ANSWERS QUESTIONS READILY. ORIENTED TO PERSON, PLACE AND TIME ONLY. DENIES ANY PAIN.
[2017-05-30 07:59] VITALS: BP 134/82
--- NOTE | 2017-05-30 08:00 | NUR ---
SHIFT ASSMT COMPLETED.DENIES NEEDS.CL IN REACH.
--- NOTE | 2017-05-30 11:53 | NUR ---
PATIENT ADMITTED TO REHAB FROM ACUTE FLOOR. SHE IS A CLIENT OF [facility], DR. ERICKSON IS HER PCP. [employer] IS HER [employer] COMPANY. HER REQUEST THAT SHE BE DISCHARGED TO [facility] AND REHAB WHEN SHE IS DISCHRGED FORM REHAB. WILL CONTINUE TO FOLLOW WITH PATIENT
--- NOTE | 2017-05-30 12:00 | NUR ---
SITTING UP IN WC IN ROOM AT BEDSIDE.CL IN REACH.LUNCH GIVEN.
--- NOTE | 2017-05-30 14:00 | RHP ---
PATIENT: ROGER FARRELL MEDICAL RECORD: [id number] ACCOUNT: [id number] LOCATION:[facility]1113 : 47 ADMISSION DATE: 05/29/17 REHABILITATION HISTORY AND PHYSICAL EXAMINATION POST ADMISSION PHYSICIAN EXAMINATION POST-ADMISSION PHYSICAL EXAM AND HISTORY AND PHYSICAL DATE OF ADMISSION: 05/29/2017 ADMITTING DIAGNOSIS: Acute exacerbation of chronic obstructive pulmonary disease. HISTORY OF PRESENT ILLNESS: The patient is admitted to inpatient rehab for pulmonary/acute exacerbation of COPD. She is a 71-year-old female patient with past medical history of anoxic brain injury with CVA, short-term memory loss, atrial fib, UTI, emphysema, COPD. She presented with lethargy and mental status change. Her could not get her to wake up on the morning of 05/26/2017 and called the EMS. She was brought to the Emergency Room and admitted with hypoxia, elevated ammonia levels, COPD, pneumonitis, and pneumonia. She has a history of AFib and is on chronic anticoagulation. She has been seen by pulmonary, was treated for acute exacerbation of COPD and is receiving IV antibiotics and IV steroids. She has continued to have complaints of headache, being relieved by Fioricet as needed. CT of her head showed no new changes. Her ammonia level was down from 240 on admit to 25 on the day of transfer to the inpatient rehab. She states that she has regressed and become weak lately, states that she has been doing well after discharge from the acute rehab back in January, plans to return home with her at prior level of function or better. She is moderately independent with her ADLs and mobility with use of a rolling walker and wheelchair at home. She is currently set up for moderate to max assist with ADLs and max assist to total assist with mobility. Comorbidities in this patient include chronic diastolic heart failure, pneumonia, COPD, acute hyperammonemia, pneumonia, pneumonitis, COPD, AFib, history of chronic cerebellar changes, got a history of functional quadriplegia. PAST MEDICAL HISTORY: Significant for CVA, seizures, COPD, congestive heart failure, history of Mycobacterium TB, critical illness myopathy, depression, atrial fib, emphysema, hypothyroidism, gastroesophageal reflux disease, osteopenia, fibromyalgia, and history of tobacco use. PAST SURGICAL HISTORY: Includes a left lower lobe lobectomy, pneumonia, resection. She had a history of rhinal reduction. She had a history of acute cervical diskectomy, ganglion cyst removal, sciatic nerve and sacroplexy, Botox injections in the past and cataract surgery. ALLERGIES: ANY TYPE OF MUSCLE RELAXERS. SHE IS ALLERGIC TO SULFA, ACETAMINOPHEN, CODEINE, DIAZEPAM, MEPERIDINE, EPINEPHRINE, LASIX, LATEX, HYDROCODONE, ANY TYPE OF SLEEP AID AND ACIPHEX. MEDICATIONS: Current medications include prednisone, she is on a taper. She is on omega-3 daily. She is on Zetia 10 mg daily, Protonix 40 mg daily. She is on Rythmol 225 b.i.d., Lyrica 50 mg t.i.d., Remeron 30 mg at bedtime, fluoxetine 20 mg t.i.d., Depakote 500 mg b.i.d. She is on 2 more doses of Rocephin. She is on Fioricet as needed for headaches and Eliquis 5 mg b.i.d. HISTORY AND PHYSICAL [id number] ROGER FARRELL HABITS: No current alcohol or tobacco use. FAMILY HISTORY: Noncontributory. SOCIAL HISTORY: The patient hopes to return back home with her family and get back to her prior level of functioning. REVIEW OF SYSTEMS: GENERAL: She does complain of weakness. HEENT: She denies cold, cough, or congestion. CARDIOVASCULAR: She denies chest pain. PHYSICAL EXAMINATION: VITAL SIGNS: Stable, afebrile. GENERAL: A thin female in no acute distress, alert upon exam. HEENT: Normocephalic and atraumatic. Mucosa moist. NECK: Supple. No lymphadenopathy. LUNGS: Clear in upper machuca at this time. HEART: Irregular rate and rhythm. ABDOMEN: Benign. EXTREMITIES: No clubbing, cyanosis or edema. NEUROLOGIC: She seems intact. LABORATORY DATA: White count was 6.3, H&H of 12 and 37.6 and platelet count was noted to be 204. Her admit sodium was 139, potassium 4.0, BUN and creatinine of 9 and 0.5. She had blood gases done on the and a UA done on the , were both within normal limits. ASSESSMENT: This is a 71-year-old female patient admitted to rehab with a working diagnosis of acute exacerbation of COPD. The patient has potential to make improvement. We instituted the following multidisciplinary therapies including to, but not limited to physical, occupational, respiratory, speech, nutritional services, prosthetics and orthotics. Given her complex condition and risk for more complications, rehabilitation services cannot be provided at a lower level of care such as a shelter facility. PLAN: 1. Admit to [facility] rehab for intensive inpatient therapy to include the following disciplines: A. Physical therapy to improve gait, all transfer skills and bed mobility to a modified independent level. B. Occupational therapy to improve activities of daily living to a modified independent level. C. Case management to assist with discharge planning and placement options. D. Nutrition to assist with nutritional needs. E. Rehabilitation nursing to assist in monitoring the patient's underlying medical conditions and to assist with any type of bowel or bladder management. 2. The patient's current medication and medical care will be continued. 3. The patient will be placed on standard fall precautions. 4. The patient's estimated length of stay is approximately 7-10 days. 5. Discuss this patient during care team staff meeting this week. 6. The patient also has some breakdown areas on her heel and also buttocks region. I am going to get wound care to see her while she is here. TRANSINT:[id number] Voice Confirmation ID: [id number] DOCUMENT ID: [id number] HISTORY AND PHYSICAL [id number] ROGER FARRELL notes whether there has been none or any medical/functional change since admission: - No change since prescreen. JANIS attests patient continues to be appropriate for IRF: - Continues to be appropriate. MARIBETH FRANCICSO MD at 1400 CC: [id number] DICTATION DATE: 05/30/17917 VAMP CREASER: 05/30/17 1127 ADM IN [facility] [address] [id number]
[2017-05-30 14:01] VITALS: Ht 157.5 cm; Wt 52.2 kg
--- NOTE | 2017-05-30 19:30 | NUR ---
PT. SITTING UP IN W/C AND WATCHING TV. ASSESSMENT COMPLETED. NO VOICED NEEDS AT THIS TIME AND SHE HAS HER CALL LIGHT WITHIN REACH.
[2017-05-30 21:45] VITALS: BP 102/73
--- NOTE | 2017-05-30 23:19 | NUR ---
PT. JUST TRANSFERED TO BED AFTER CHANGING BRIEF AND CLOTHING FOR THE NIGHT. PT. POSITIONED TO COMFORT AND HAS HER HEEL PROTECTORS ON. APPLIED BUTT PASTE TO BUTTOCK ON BLANCHABLE PINK AREAS. CALL LIGHT WITHIN REACH.
--- NOTE | 2017-05-31 02:00 | NUR ---
RESTING IN BED, EYES CLOSED. NO APPARENT DISCOMFORT.
--- NOTE | 2017-05-31 04:15 | NUR ---
RESTING IN BED, EYES CLOSED. RESPIRING QUIETLY.
--- NOTE | 2017-05-31 06:30 | NUR ---
GAVE PATIENT SCHEDULED PO MEDS. CLEANSED PATIENT AND CHANGED HER PULL-UP BRIEF. APPLIED BUTT PASTE TO PINK AREA OF BUTTOCKS ALONG GLUTEAL CREASE. DENIES CURRENT NEEDS.
[2017-05-31 07:21] LABS: CALC OSMOLALITY 274 mosm/kg (275-300); CARBON DIOXIDE 27.1 mmol/L (21.0-32.0); CHLORIDE - SERUM 101 mmol/L (98-107); CREATININE - SERUM 0.5 mg/dL (0.6-1.3); GLUCOSE 75 mg/dL (74-106); POTASSIUM - SERUM 3.5 mmol/L (3.5-5.1); SODIUM 138 mmol/L (136-145); UREA NITROGEN 12 mg/dL (7-18); eGFR NON AFRICAN AMERICAN > 90 mL/min (90-120)
[2017-05-31 07:24] LABS: BASOPHILS 0.8 % (0-2); EOSINOPHILS 0.8 % (0-7); HEMATOCRIT 38.1 % (36.0-48.0); HEMOGLOBIN 14.6 g/dL (12-16); IMMATURE GRANULOCYTES 0.7 % (0-5); LYMPHOCYTES 44.8 % (15-50); MCH 35.3 pg (26.0-34.0); MCHC 38.3 g/dL (31.0-37.0); MEAN PLATELET VOLUME 10.4 fL (7.4-10.4); MONOCYTES 5.2 % (2-11); NEUTROPHILS 47.7 % (40-80); PLATELET COUNT 189 10x3/uL (130-400); RBC 4.14 10x6/uL (4.00-5.40); RDW 17.5 % (11.5-14.5); WBC 7.1 10x3/uL (4.8-10.8)
[2017-05-31 08:26] VITALS: BP 158/76
--- NOTE | 2017-05-31 09:15 | NUR ---
PT AM MEDS ADMINISTERED. PT REQ AND REC'D PRN FIORCET. PT CURRENTLY IN THERAPY GYM, TOLERATING WELL. PT DENIES FURTHER NEEDS. WCTM.
--- NOTE | 2017-05-31 11:49 | NUR ---
WOUND CARE NURSE INTO SEE PATIENT. PATIENT TO WEAR HEEL PROTECTORS AT HS.
--- NOTE | 2017-05-31 11:55 | NUR ---
Wound care consult: Pt has dime sized old black skin on bilateral heels. The areas are dry and flaky- Feels like dried up blisters. Pt is up in wheelchair with shoes on. She states her heels are not sore. At night when she goes to bed she wears foam heel protectors. Recommended she continue doing as she is doing. Discussed importance of relieving pressure and she voiced understanding. She stated if heels started becoming tender she would let her nurse know. Wound care will follow as needed.
--- NOTE | 2017-05-31 13:27 | NUR ---
PRN FIORICET GIVEN FOR HEADACHE PER PATIENT REQUEST
--- NOTE | 2017-05-31 15:11 | NUR ---
CARE TEAM MEETING: PATIENT PROGRESSING WELL IN THERAPY. TENATIVE DISCHARGE DATE IS 06/09/17. PATIENT WILL BE RA AT NEXT MEETING. WILL CONTINUE TO FOLLO WITH PATIENT. SPOUSE WOULD LIKE REFERRAL MADE TO [facility] IF PATIENT DOES NOT REACH HER GOALS.
--- NOTE | 2017-05-31 16:43 | NUR ---
PATIENT HELPED INTO BATHROOM. STAND BY ASST OF ONE FROM WHEELCHAIR TO TOILET USING GRAB BAR. PATIENT NEEDED HELP PULLING DOWN PANTS. PATIENT WEARS BRIEFS. STRESS INCONT. PATIENT NEEDED HELP PUTTING ON CLEAN BRIEFS.
[2017-05-31 19:34] VITALS: BP 94/56
--- NOTE | 2017-05-31 19:34 | NUR ---
UP IN W/C PROPELLING SELF AROUND ROOM. PLEASANT AND TALKATIVE. DENIES ANY PAIN. CALL LIGHT AND OVERBED TABLE IN REACH.
--- NOTE | 2017-05-31 21:17 | NUR ---
ALERT AND ORIENTED. UP IN CHAIR WITH EYES OPEN AND TV ON. PLEASANT AND COOPERATIVE. ANSWERS QUESTIONS APPROPRIATLY. STATES SHE'S NOT READY TO GO TO BED. ASKED HER TO LET ME KNOW WHEN SHE'S READY. CALL [facility] AND OVERBED TABLE IN REACH.
--- NOTE | 2017-06-01 02:24 | NUR ---
RESTING IN BED WITH EYES CLOSED. NO S/S OF DISTRESS OBSERVED. CALL LIGHT IN REACH.
--- NOTE | 2017-06-01 06:58 | NUR ---
RESTING IN BED WITH EYES CLOSED. N O S/S OF DISTRESS OBSERVED. CALL LIGHT A ND OVERBED TABLE IN REACH.
--- NOTE | 2017-06-01 07:35 | NUR ---
SITTING UP IN BED EATING BREAKFAST. ASSISTED WITH OPENING JUICE CONTAINERS. DENIES ANY NEEDS OR PAIN. ALERT AND ORIENTED X4. NO S/SX OF ACUTE DISTRESS. CALL LIGHT AND PERSONAL ITEMS WITHIN REACH, BED ALARM ON, BED LOW, SR X2. WILL CONTINUE TO MONTIOR
[2017-06-01 08:17] VITALS: BP 134/80
--- NOTE | 2017-06-01 09:59 | NUR ---
ADMINISTERED MORNING MEDS WHOLE WITHOUT DIFFICULTY. C/O OF HEAD AND GENERALIZED BODY ACHING 5/10 FIORECET GIVEN FOR HEADACHE. NO OTHER CONCERNS VOICED. IN THERAPY GYM WITH [facility]. WILL CONTINUE TO MONITOR
--- NOTE | 2017-06-01 12:21 | NUR ---
SITTING UP IN W/C WATCHING TV. DENIES ANY PAIN OR NEEDS. NO S/SX OF ACUTE DISTRESS NOTED. CALL LIGHT AND PERSONAL ITEMS WITHIN REACH, W/C BRAKES LOCKED, ALARM ON. WILL CONTINUE TO MONITOR
--- NOTE | 2017-06-01 12:40 | NUR ---
Nutrition Follow Up: Pt is eating 58% meal avg on a regular diet. +BM 05/30/17. Labs reviewed. Meds noted including Prednisone, Remeron. Rec continue current diet. RD following.
--- NOTE | 2017-06-01 14:24 | NUR ---
SITTING UP IN W/C WATCHING TV. DENIES ANY NEEDS. NO S/SX OF ACUTE DISTRESS NOTED. CALL LIGHT AND WATER WITHIN REACH, W/C BRAKES LOCKED AND BOX ALARM ON. WILL CONTINUE TO MONITOR
--- NOTE | 2017-06-01 17:39 | NUR ---
EATING SUPPER IN ROOM
--- NOTE | 2017-06-01 17:56 | NUR ---
SITTING UP IN BED EATING DINNER. FAMILY AT BEDSIDE. DENIES ANY PAIN OR NEEDS. CALL LIGHT WITHIN REACH, BED LOW AND ALARM ON. WILL CONTINUE TO MONITOR
[2017-06-01 19:25] VITALS: BP 98/58
--- NOTE | 2017-06-01 19:25 | NUR ---
RECIEVED UP IN W/C PROPELLING SELF AROUND ROOM. PLEASNAT AND COOPERATIVE. DENIES ANY PAIN OR NEEDS AT THIS TIME. CALL LIGHT AND OVERBED TABLE IN REACH.
--- NOTE | 2017-06-01 21:54 | NUR ---
UP IN W/C AND STATES " I'M NOT READY FOR BED". INCONTINENT OF URINE AND WEARS A BRIEF. ABLE TO TOILET HERSELF AND CHANGES HER OWN BRIEF. CALL LIGHT AND OVERBED TABLE IN REACH.
--- NOTE | 2017-06-02 00:08 | NUR ---
RESTING IN BED WITH EYES CLOSED. NO S/S OF DISTRESS OBSERVED. CALL LIGHT AND OVERBED TABLE IN REACH.
--- NOTE | 2017-06-02 04:46 | NUR ---
RESTING IN BED WITH EYES CLOSED. NO S/S OF DISTRESS OBSERVED. CALL LIGHT AND OVERBED TABLE IN REACH.
[2017-06-02 06:12] LABS: HEMATOCRIT 36.7 % (36.0-48.0); HEMOGLOBIN 11.9 g/dL (12-16); MCH 28.7 pg (26.0-34.0); MCHC 32.4 g/dL (31.0-37.0); MEAN PLATELET VOLUME 10.6 fL (7.4-10.4); NEUTROPHILS 53.7 % (40-80); RBC 4.14 10x6/uL (4.00-5.40); RDW 17.2 % (11.5-14.5); WBC 6.5 10x3/uL (4.8-10.8)
[2017-06-02 06:23] LABS: MCV 88.6 fL (80.0-100.0); PLATELET COUNT 130 10x3/uL (130-400)
[2017-06-02 06:35] LABS: CALC OSMOLALITY 282 mosm/kg (275-300); CALCIUM 8.3 mg/dL (8.5-10.1); CARBON DIOXIDE 29.4 mmol/L (21.0-32.0); CHLORIDE - SERUM 106 mmol/L (98-107); CREATININE - SERUM 0.5 mg/dL (0.6-1.3); GLUCOSE 75 mg/dL (74-106); POTASSIUM - SERUM 3.9 mmol/L (3.5-5.1); SODIUM 143 mmol/L (136-145); UREA NITROGEN 11 mg/dL (7-18); eGFR NON AFRICAN AMERICAN > 90 mL/min (90-120)
--- NOTE | 2017-06-02 08:09 | NUR ---
PT RESTING IN BED WITH EYES OPEN EATING BREAKFAST TOLERATING WELL WILL MONITER
[2017-06-02 09:01] VITALS: BP 147/82
--- NOTE | 2017-06-02 10:59 | NUR ---
PT UP IN WHEELCHAIR IN THERAPY GYM TOLERATING WELL WILL MONITER
[2017-06-02 19:35] VITALS: BP 81/57
--- NOTE | 2017-06-02 19:35 | NUR ---
RECIEVED UP IN W/C WITH EYES OPEN AND TV ON. PLEASANT AND COOPERATIVE. ALERT AND ORIENTED. DENIES ANY PAIN. CALL LIGHT AND OVERBED TABLE IN REACH.
[2017-06-02 20:58] VITALS: BP 81/57
--- NOTE | 2017-06-03 03:43 | NUR ---
RESTING IN BED WITH EYES CLOSED. CHECKED AND CHANGED NEEDED. NO S/S OF DISTRESS OBSERVED. CALL LIGHT AND OVERBED TABLEIN REACH.
--- NOTE | 2017-06-03 06:30 | NUR ---
RESTING IN BED WITH EYES CLOSED. NO S/S OF DISTRESS OBSERVED. CHECKED EARLIER AND DRY. ASKED IF SHE NEEDED TO GO TO THE B/R AND STATED "NO". CALL LIGHT AND OVERBED TABLE IN REACH.
--- NOTE | 2017-06-03 08:00 | NUR ---
SITTING UP IN BED EATING BREAKFAST.CL IN REACH.
--- NOTE | 2017-06-03 13:37 | NUR ---
PT UP IN WHEELCHAIR IN ROOM TOLERATING WELL WILL MONITER
--- NOTE | 2017-06-03 19:30 | NUR ---
ASSESS VITAL SIGNS, SEE FLOWSHEET.
--- NOTE | 2017-06-03 20:00 | NUR ---
PT. SITTING UP IN W/C AND IS WATCHING TV. NO VOICED NEEDS AND HER CALL LIGHT IS WITHIN REACH.
--- NOTE | 2017-06-03 20:45 | NUR ---
SIT UP IN WHEELCHAIR AND WATCH TV.
[2017-06-03 22:24] VITALS: BP 104/59
--- NOTE | 2017-06-03 22:30 | NUR ---
ASSISTED PT TO BATHROOM.
--- NOTE | 2017-06-04 00:35 | NUR ---
IN BED, EYE CLOSE, BED LOW, CALL LIGHT IN REACH.
--- NOTE | 2017-06-04 01:00 | NUR ---
ASSUMED CARE AT THIS TIME. PT. IN BED WITH HOB SLIGHTLY ELEVATED FOR COMFORT. EYES CLOSED AND RESP. EVEN. CALL LIGHT WITHIN REACH.
[2017-06-04 08:28] VITALS: BP 140/86
--- NOTE | 2017-06-04 09:00 | NUR ---
IS ALERT AND ORIENTED.RATES GENERALIZED PAIN AN 8.MEDICATE PER ORDERS.TAKES MEDS WITHOUT DIFFICULTY.
--- NOTE | 2017-06-04 13:52 | NUR ---
FEORICET GIVEN FOR C/O GENERALIZED PAIN RATED AN 8.CONTINUES TO SIT UP IN WHEELCHAIR.DENIES OTHER NEEDS.
--- NOTE | 2017-06-04 19:45 | NUR ---
PT. SITTING UP IN W/C WATCHING TV. CALL LIGHT WITHIN REACH. NO VOICED NEEDS.
--- NOTE | 2017-06-04 20:10 | NUR ---
SIT UP IN WHEELCHAIR AND DO PUZZLE GAME.
--- NOTE | 2017-06-04 21:50 | NUR ---
ASSISTED PT TO BATHROOM AND BACK TO BED.
[2017-06-04 21:59] VITALS: BP 101/50
--- NOTE | 2017-06-05 01:57 | NUR ---
IN BED,EYE CLOSE, CALL LIGHT IN REACH.
--- NOTE | 2017-06-05 03:53 | NUR ---
REST IN BED, EYE CLOSE, CALL LIGHT IN REACH.
--- NOTE | 2017-06-05 05:50 | NUR ---
PT INCONTINENCE, CLEAN BUTTOCK AND PERINEAL AREA AND CHANGE BRIEF.
[2017-06-05 07:59] VITALS: BP 126/73
--- NOTE | 2017-06-05 08:00 | NUR ---
AM ROUNDING: PATIENT IS ALERT/ORIENT X4. BED ALARM ON. CALL LIGHT WITHIN REACH. IN ROOM WITH PATIENT. PATIENT DENIES ANY NEEDS AT THIS TIME
--- NOTE | 2017-06-05 09:52 | NUR ---
PRN PAIN MEDICATION GIVEN FOR ALL OVER GENERAL PAIN/DISC PER PATIENT REQUEST
--- NOTE | 2017-06-05 10:00 | NUR ---
PATIENT IN REHAB ROOM. WORKING WITH PHYSICAL THERAPY. DENIES ANY PAIN/DISC.
--- NOTE | 2017-06-05 14:10 | NUR ---
PRN PAIN MEDICATION GIVEN FOR ALL OVER GENERAL PAIN/DISC
--- NOTE | 2017-06-05 14:49 | NUR ---
PATIENT HELPED TO BATHROOM. WALKING WITH WHEELED WALKER. STAND BY ASST. NEEDS HELP IN BATHROOM. WITH TAKING OFF AND PUTTING ON BRIEF. NEEDS HELP PULLING UP PANTS IN BACK
--- NOTE | 2017-06-05 17:10 | NUR ---
PATIENT SITTING UP IN A WHEELCHAIR TO EAT SUPPER. IN ROOM VISITING PATIENT.
[2017-06-05 19:20] VITALS: BP 101/55
--- NOTE | 2017-06-05 19:52 | NUR ---
RECIEEVED UP IN W/C BESIDE BED WATCHING TV. A&O X4. PLEASANT AND COOPERATIVE. DENIES ANY PAIN AT THIS TIME. CALL LIGHT IN REACH.
--- NOTE | 2017-06-05 23:36 | NUR ---
RESTING IN BED WITH EYES CLOSED. NO S/S OF DISTRESS OBSERVED. CALL LIGHT IN REACH.
--- NOTE | 2017-06-06 04:00 | NUR ---
RESTING IN BED WITH EYES CLOSED. NO S/S OF DISTRESS OBSERVED. CALL LIGHT IN REACH.
--- NOTE | 2017-06-06 06:34 | NUR ---
REASTING IN BED AT THIS TIME WITH CALL LIGHT IN REACH. REFUSES TO TOILET. CALL LIGHT IN REACH.
[2017-06-06 08:00] VITALS: BP 145/78
--- NOTE | 2017-06-06 08:00 | NUR ---
EATING BREAKFAST IN ROOM. DENIES NEEDS. CALL LIGHT IN REACH
--- NOTE | 2017-06-06 08:43 | NUR ---
PT RESTING IN BED WITH EYES OPEN CALL LIGHT IN REACH WILL MONITER
--- NOTE | 2017-06-06 10:13 | NUR ---
Nutrition Follow Up: Pt is eating 89% meal avg on a regular diet. +BM 06/01/17 - no BM x 5 days. Labs reviewed. Meds noted including Prednisone, Remeron. Rec continue current diet. RD following.
--- NOTE | 2017-06-06 15:48 | NUR ---
PT RESTING IN BED WITH EYES OPEN CALL LIGHT IN REACH NO PROBLEMS WILL MONITER
--- NOTE | 2017-06-06 15:49 | NUR ---
PT UP IN WHEELCHAIR CALL LIGHT IN REACH WILL MONITER
--- NOTE | 2017-06-06 18:34 | NUR ---
PT RESTING IN BED WITH EYES OPEN CALL LIGHT IN REACH WILL MONITER
[2017-06-06 19:30] VITALS: BP 108/72
--- NOTE | 2017-06-06 19:43 | NUR ---
RECIEVED UP IN W/C WITH OVERBED TABLE IN FRONT OF HER AND WATCHING TV. EXCITED ABOUT GOING HOME MONDAY. LUNG SOUNDS CLEAR BILATERALLY AND BSX4Q. GENERALIZED EDEMA TO LOWER EXTREMITIES. CALL LIGHT IN REACH.
--- NOTE | 2017-06-06 19:45 | NUR ---
RECIEVED LAYING IN BED WITH EYES CLOSED. SPOUSE AT BEDSIDE STATES "SHE'S SLEEPING". EASILY AROUSES WITH VERBAL STIMULI. ORIENTED TO PERSON AND PLACE ONLY . DOES NOT REMEMBER HAVING THERAPY TODAY. NO TREMMORS OBSERVED. MUCH MORE ALET TODAY. BSX4. LUNG SOUNDS CLEAR BILATERALLY. NO EDEMA OBSERVED. FENTENYL PATCH TO RIGHT UPPER CHEST AND PACEMAKER TO LEFT CHEST. CALL LIGHT IN REACH.
--- NOTE | 2017-06-06 23:50 | NUR ---
RESTING IN BED WITH EYES CLOSED. N O S/S OF DISTRESS OBSERVED. CALL LIGHT IN REACH.
--- NOTE | 2017-06-07 02:09 | NUR ---
RESTING IN BED WITH EYES CLOSED. NO S/S OF DISTRESS OBSERVED. CALL LIGHT IN REACH.
[2017-06-07 06:49] LABS: BASOPHILS 0.1 % (0-2); EOSINOPHILS 3.5 % (0-7); HEMATOCRIT 36.4 % (36.0-48.0); HEMOGLOBIN 11.5 g/dL (12-16); IMMATURE GRANULOCYTES 1.1 % (0-5); LYMPHOCYTES 30.9 % (15-50); MCH 28.8 pg (26.0-34.0); MCHC 31.6 g/dL (31.0-37.0); MCV 91.2 fL (80.0-100.0); MEAN PLATELET VOLUME 9.6 fL (7.4-10.4); MONOCYTES 8.5 % (2-11); NEUTROPHILS 55.9 % (40-80); RBC 3.99 10x6/uL (4.00-5.40); RDW 17.8 % (11.5-14.5); WBC 7.1 10x3/uL (4.8-10.8)
[2017-06-07 06:54] LABS: PLATELET COUNT 212 10x3/uL (130-400)
[2017-06-07 07:23] LABS: CALC OSMOLALITY 282 mosm/kg (275-300); CALCIUM 8.4 mg/dL (8.5-10.1); CARBON DIOXIDE 29.8 mmol/L (21.0-32.0); CHLORIDE - SERUM 106 mmol/L (98-107); CREATININE - SERUM 0.7 mg/dL (0.6-1.3); GLUCOSE 82 mg/dL (74-106); POTASSIUM - SERUM 4.1 mmol/L (3.5-5.1); SODIUM 143 mmol/L (136-145); UREA NITROGEN 10 mg/dL (7-18); eGFR NON AFRICAN AMERICAN 88 mL/min (90-120)
[2017-06-07 08:00] VITALS: BP 132/75
--- NOTE | 2017-06-07 08:15 | NUR ---
PT UP IN WHEELCHAIR EATING LUNCH CALL LIGHT IN REACH NO PROBLEMS WILL MONITER
--- NOTE | 2017-06-07 12:30 | NUR ---
PT UP IN WHEELCHAIR IN ROOM CALL LIGHT IN REACH WILL MONITER
--- NOTE | 2017-06-07 15:25 | NUR ---
CARE TEAM MEETING: PATIENT PROGRESSING WELL IN THERAPY AND WILL DISCHARGE HOME WITH FAMILY 06/09/17. WILL CONTINUE TO FOLLOW WITH PATIENT.
--- NOTE | 2017-06-07 15:53 | NUR ---
SITTING UP IN WC.CL IN REACH.
--- NOTE | 2017-06-07 19:30 | NUR ---
BEDSIDE SHIFT REPORTING COMPLETE. PATIENT SITTING UP IN W/C AT BEDSIDE. DENIES NEEDS.
[2017-06-07 21:05] VITALS: BP 99/63
--- NOTE | 2017-06-07 21:05 | NUR ---
ASSESSMENT AND HS MEDS COMPLETE DENIES CURRENT NEEDS. SAYS SHE WANTS TO REMAIN UP IN W/C TO WATCH HER TV SHOW.
--- NOTE | 2017-06-07 22:30 | NUR ---
ASSISTED PAIENT UP TO BR TO URINATE. ON RETURN TO BED GAVE HER FIORICET X1 TAB PO FOR GENRALIZED FIBROMYALGIA PAIN OF LEVEL 8/10. DENIES FURTHER NEEDS.
--- NOTE | 2017-06-07 23:22 | NUR ---
Received report from Jeanmarie PURCELL.
--- NOTE | 2017-06-08 00:05 | NUR ---
Patient in bed, respirations unlabored, 3 side rails up for safety, mc alarm on. Eyes closed, deemed to be sleeping. HOB elevated 30 degrees, no signs of distress.
--- NOTE | 2017-06-08 02:05 | NUR ---
Continues sleeping, respirations easy and regular, no signs of distress.
--- NOTE | 2017-06-08 04:00 | NUR ---
Lying on right side, eyes closed, respirations unlabored, no signs of distress, deemed to be sleeping.
--- NOTE | 2017-06-08 06:05 | NUR ---
Assisted up into wheelchair, propelled self into BR and placed self on toilet. Able to transfer back to wheelchair and then to bed with minimal assistance. Resting quietly at this time.
--- NOTE | 2017-06-08 07:47 | NUR ---
SITTING UP IN BED EATING BREAKFAST. DENIES ANY NEEDS OR PAIN. ALERT AND ORIENTED X4. NO S/SX OF ACUTE DISTRESS NOTED. CALL LIGHT WITHIN REACH, BED LOW AND SRX3. WILL CONTINUE TO MONITOR.
[2017-06-08 08:00] VITALS: BP 141/71
--- NOTE | 2017-06-08 10:35 | NUR ---
IN THERAPY GYM WITH PHYSICAL THERAPY. NO S/SX OF ACUTE DISTRESS. WILL CONTINUE TO MONITOR
--- NOTE | 2017-06-08 13:15 | NUR ---
PT WAS FOUND ON FLOOR IN FRONT OF TOILET. PT STATES SHE WAS TRANSFERRING FROM TOILET TO W/C WITHOUT ASSISTANCE AND SLID IN FLOOR. NO INJURIES OCCURED.
--- NOTE | 2017-06-08 13:35 | NUR ---
SENIOR UNDERWRITING ASSISTANT ALBERT AND DR. FRANCISCO WERE NOTIFIED.
--- NOTE | 2017-06-08 15:00 | NUR ---
SITTING UP IN CHAIR.CL IN REACH.
--- NOTE | 2017-06-08 17:07 | NUR ---
SITTING UP IN W/C VISITING WITH . DENIES ANY NEEDS OR PAIN. NO S/SX OF RESPIRATORY DISTRESS NOTED. CALL LIGHT AND WATER WITHIN REACH, W/C BRAKES LOCKED AND BOX ALARM ON. WILL CONTINUE TO MONITOR
--- NOTE | 2017-06-08 19:20 | NUR ---
BEDSIDE SHIFT REPORT COMPLETE. PATIENT SITTING UP IN W/C AT BEDSIDE. DENIES NEEDS.
--- NOTE | 2017-06-08 20:10 | NUR ---
REMAINS UP IN W/C AT BEDSIDE. NO COMPLAINTS AT THIS TIME.
[2017-06-08 21:10] VITALS: BP 106/72
--- NOTE | 2017-06-08 21:10 | NUR ---
CONTINUES UP IN W/C AT BEDSIDE. ENCOURAGED HER TO RETURN TO BED TO ELEVATE LEGS DUE TO 3+ EDEMA WITH SHINY TIGHT SKIN. PATIENT DECLINED SAYS SHE WANTED TO REMAIN UP UNTIL AFTER HER FAVORITE TV SHOW. WHEN I ASKED HER IF SHE DOES THIS AT HOME, SHE TOLD ME NO, THAT SHE IS USUALLY IN BED AROUND 8PM SHE RECORDS HER SHOWS FOR A LATER TIME. PATIENT COULD NOT TELL ME WHY SHE COULDN'T WATCH TV FROM HER BED.
--- NOTE | 2017-06-08 22:25 | NUR ---
PATIENT NOW IN BED. APPEARS COMFORTABLE.
--- NOTE | 2017-06-08 23:45 | NUR ---
IN BED, EYES CLOSED. HOB UP 30 DEGREES. NO DISCOMFORT EVIDENT.
--- NOTE | 2017-06-09 02:35 | NUR ---
RESTING IN BED, EYES CLOSED. APPEARS COMFORTABLE.
--- NOTE | 2017-06-09 04:30 | NUR ---
RESTING IN BED, EYES CLOSED. RESPIRATIONS UNLABORED.
--- NOTE | 2017-06-09 06:55 | NUR ---
GAVE PATIENT SCHEDULED PO MEDS. ASSISTED HER UP TO BR COMMODE TO CLEANSE AND CHANGED FROM LARGE URINE INCONTINENCE. SET HER UP TO DRESS HER UPPER BODY. TOLD HER TO CALL WHEN READY TO DRESS HER LOWER BODY SHE IS NOT TO ATTEMPT TO STAND WITHOUT STAFF PRESENT. SAYS SHE UNDERSTANDS.
[2017-06-09 08:08] VITALS: BP 135/91
--- NOTE | 2017-06-09 08:15 | NUR ---
PT UP IN WHEELCHAIR EATING BREAKFAST TOLERATING WELL WILL MONITER CALL LIGHT IN REACH WILL MONITER
--- NOTE | 2017-06-09 09:33 | NUR ---
PATIENT DISCHARGING HOME WITH FAMILY. WRITTEN SCRIPT GIVEN FOR OUT PATIENT THERAPY. NO NEW DME NEEDED AT THIS TIME. DR. CAMACHO 06/20/17 @ 2:30. [facility] FORM SIGNED, EXPLAINED AND FILED IN CHART.
--- NOTE | 2017-06-09 13:27 | NUR ---
PT DISCHARGED TO HOME VIA WHEELCHAIR WITH DISCHARGED MEDS AND SUMMARY REVIEWED NO QUESTIONS TOLERATED WELL
--- NOTE | 2017-06-12 10:07 | NUR ---
PATIENT CALLED TODAY AND REQUEST TO HAVE HOME HEALTH REINSTATED. ORDER SENT TO [facility] PER PATIENT CHOICE.
--- NOTE | 2017-07-27 10:20 | DS ---
PATIENT:ROGER FARRELL :47 MEDICAL RECORD: [id number] DISCHARGE SUMMARY ADMISSION DATE: 05/29/17 DISCHARGE DATE: 06/09/17 This is a discharge dated 06/09/2017 from inpatient rehab. PRIMARY DIAGNOSIS: Decreased functional ability and ability to provide activities of daily living secondary to critical illness myopathy. SECONDARY DIAGNOSES: 1. Acute exacerbation of chronic obstructive pulmonary disease. 2. 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 3. Atrial fibrillation. 4. Urinary tract infection. 5. Headaches. 6. Congestive heart failure. 7. Seizures. 8. Gastroesophageal reflux disease. 9. Hypothyroidism. 10. Osteopenia. 11. Fibromyalgia. HOSPITAL COURSE: Full H&P is located elsewhere on the chart on this 71-year-old female who was admitted to inpatient rehab for physical therapy and occupational therapy to improve gait, transfer skills, bed mobility, and activities of daily living to a modified independent level. She was evaluated by PT and OT and their plans of care were followed. She required assisted care for observation and assessment and medication administration. She continued on appropriate home medications and was on a prednisone wean for treatment of COPD exacerbation. Electrolytes were managed by protocol. She was cooperative with therapies, progressing towards goals. Case management was involved for discharge planning. She was considered stable for discharge on 06/09/2017. DISCHARGE MEDICATIONS: As per discharge medication reconciliation. DISCHARGE DISPOSITION: The patient is discharged home. She will continue her current diet and level of activity. She will follow up with primary care and specialists as directed. At least 30 minutes was spent in this discharge activity. TRANSINT:[id number] Voice Confirmation ID: [id number] DOCUMENT ID: [id number] Dictated By: DEEPAK FARRELL I have interviewed/examined the above patient and agree with these documented findings. DISCHARGE SUMMARY REPORT [id number] BUDROGER MARIBETH FRANCISCO MD at 1020 at 1023 CC: [id number] DICTATION DATE: 07/23/17 1530 CRUISE DIRECTOR: 07/24/17 1005 DIS IN 06/09/17 [id number] [place] [address]
== END 2017-06-09 13:28 | disposition home health service (06) | DRG 190 ==
LOC: D.REHAB 17:15
PROVIDERS: ADMIT Emergency Medicine
DX: J44.1 Chronic obstructive pulmonary disease with (acute) exacerbation (principal); J18.9 Pneumonia, unspecified organism; I50.32 Chronic diastolic (congestive) heart failure; E72.20 Disorder of urea cycle metabolism, unspecified; N39.0 Urinary tract infection, site not specified; I48.91 Unspecified atrial fibrillation; K21.9 Gastro-esophageal reflux disease without esophagitis; Z66 Do not resuscitate; I71.4 Abdominal aortic aneurysm, without rupture

== ENCOUNTER 2017-08-16 10:45 | Emergency (ER) | payer MEDICARE, OTHER ==
[2017-05-30 14:01] VITALS: BMI 21.0
[2017-08-16 11:45] LABS: BASOPHILS 0.4 % (0-2); EOSINOPHILS 0.8 % (0-7); HEMATOCRIT 44.7 % (36.0-48.0); HEMOGLOBIN 14.6 g/dL (12-16); IMMATURE GRANULOCYTES 0.2 % (0-5); LYMPHOCYTES 20.3 % (15-50); MCH 30.4 pg (26.0-34.0); MCHC 32.7 g/dL (31.0-37.0); MCV 92.9 fL (80.0-100.0); MEAN PLATELET VOLUME 9.9 fL (7.4-10.4); MONOCYTES 13.9 % (2-11); NEUTROPHILS 64.4 % (40-80); RBC 4.81 10x6/uL (4.00-5.40); RDW 15.7 % (11.5-14.5); WBC 5.1 10x3/uL (4.8-10.8)
[2017-08-16 12:02] LABS: PLATELET COUNT 150 10x3/uL (130-400)
[2017-08-16 12:04] LABS: ALKALINE PHOSPHATASE 99 U/L (46-116); ALT (SGPT) 19 U/L (10-68); BILIRUBIN - TOTAL 0.09 mg/dL (0.2-1.3); CALC OSMOLALITY 273 mosm/kg (275-300); CALCIUM 8.9 mg/dL (8.5-10.1); CARBON DIOXIDE 28.7 mmol/L (21.0-32.0); CHLORIDE - SERUM 101 mmol/L (98-107); CREATININE - SERUM 0.7 mg/dL (0.6-1.3); GLUCOSE 124 mg/dL (74-106); POTASSIUM - SERUM 3.9 mmol/L (3.5-5.1); PROTEIN - SERUM 6.8 g/dL (6.4-8.2); SODIUM 138 mmol/L (136-145); UREA NITROGEN 3 mg/dL (7-18); eGFR NON AFRICAN AMERICAN 88 mL/min (90-120)
[2017-08-16 12:11] LABS: CREATINE KINASE 33 UL (21-215); MAGNESIUM - SERUM 1.5 mg/dL (1.8-2.4); PRO BNP 159 pg/mL (0-125)
[2017-08-16 12:13] LABS: TROPONIN-I < 0.017 ng/mL (0.000-0.060)
== END 2017-08-16 14:23 | disposition home or self-care (01) ==
LOC: D.ER 10:45
PROVIDERS: Emergency Medicine
DX: R06.00 Dyspnea, unspecified (principal); J44.1 Chronic obstructive pulmonary disease with (acute) exacerbation; I50.9 Heart failure, unspecified; Z86.73 Personal history of transient ischemic attack (TIA), and cerebral infarction without residual deficits

== ENCOUNTER 2017-08-18 09:14 | Inpatient (IN) | payer MEDICARE, OTHER ==
[~2017-08-18] VITALS: Ht 157.5 cm; Wt 56.5 kg
[2017-08-18 10:09] LABS: BASOPHILS 0.5 % (0-2); EOSINOPHILS 1.2 % (0-7); HEMATOCRIT 42.1 % (36.0-48.0); HEMOGLOBIN 13.6 g/dL (12-16); IMMATURE GRANULOCYTES 0.2 % (0-5); LYMPHOCYTES 22.9 % (15-50); MCH 29.7 pg (26.0-34.0); MCHC 32.3 g/dL (31.0-37.0); MCV 91.9 fL (80.0-100.0); MEAN PLATELET VOLUME 10.2 fL (7.4-10.4); NEUTROPHILS 63.2 % (40-80); PLATELET COUNT 140 10x3/uL (130-400); RBC 4.58 10x6/uL (4.00-5.40); RDW 16.1 % (11.5-14.5); WBC 4.2 10x3/uL (4.8-10.8)
[2017-08-18 10:25] LABS: ALBUMIN 2.7 g/dL (3.4-5.0); ALKALINE PHOSPHATASE 90 U/L (46-116); ALT (SGPT) 23 U/L (10-68); CALCIUM 8.4 mg/dL (8.5-10.1); CARBON DIOXIDE 30.9 mmol/L (21.0-32.0); CHLORIDE - SERUM 100 mmol/L (98-107); CREATININE - SERUM 0.6 mg/dL (0.6-1.3); GLUCOSE 91 mg/dL (74-106); POTASSIUM - SERUM 3.6 mmol/L (3.5-5.1); PROTEIN - SERUM 6.3 g/dL (6.4-8.2); SODIUM 136 mmol/L (136-145); eGFR NON AFRICAN AMERICAN > 90 mL/min (90-120)
[2017-08-18 10:26] LABS: CALC OSMOLALITY 269 mosm/kg (275-300); UREA NITROGEN 6 mg/dL (7-18)
[2017-08-18 10:35] LABS: CKMB 0.1 U/L (0.0-3.6); CREATINE KINASE 24 UL (21-215); PRO BNP 43 pg/mL (0-125); TROPONIN-I < 0.017 ng/mL (0.000-0.060)
[2017-08-18 11:36] LABS: APPEARANCE CLEAR (CLEAR); BILIRUBIN NEGATIVE (NEGATIVE); COLOR YELLOW (YELLOW); GLUCOSE NEGATIVE (NEGATIVE); KETONE NEGATIVE (NEGATIVE); NITRITE NEGATIVE (NEGATIVE); PROTEIN NEGATIVE (NEGATIVE); SPECIFIC GRAVITY 1.015 (1.005-1.020); UROBILINOGEN NORMAL (NORMAL)
[2017-08-19 04:00] VITALS: BP 145/85
[2017-08-19 06:03] VITALS: BP 118/70; BMI 22.8
[2017-08-19 07:02] LABS: BASOPHILS 0.3 % (0-2); EOSINOPHILS 0.3 % (0-7); HEMATOCRIT 40.2 % (36.0-48.0); IMMATURE GRANULOCYTES 0.3 % (0-5); LYMPHOCYTES 40.8 % (15-50); MCH 29.7 pg (26.0-34.0); MCHC 32.3 g/dL (31.0-37.0); MEAN PLATELET VOLUME 10.4 fL (7.4-10.4); MONOCYTES 13.5 % (2-11); NEUTROPHILS 44.8 % (40-80); PLATELET COUNT 133 10x3/uL (130-400); RBC 4.37 10x6/uL (4.00-5.40); RDW 16.1 % (11.5-14.5); WBC 3.3 10x3/uL (4.8-10.8)
[2017-08-19 07:24] LABS: ALBUMIN 2.5 g/dL (3.4-5.0); ALKALINE PHOSPHATASE 89 U/L (46-116); ALT (SGPT) 23 U/L (10-68); BILIRUBIN - TOTAL 0.07 mg/dL (0.2-1.3); CALC OSMOLALITY 275 mosm/kg (275-300); CALCIUM 8.1 mg/dL (8.5-10.1); CARBON DIOXIDE 29.6 mmol/L (21.0-32.0); CHLORIDE - SERUM 102 mmol/L (98-107); CREATININE - SERUM 0.5 mg/dL (0.6-1.3); GLUCOSE 95 mg/dL (74-106); POTASSIUM - SERUM 3.5 mmol/L (3.5-5.1); PROTEIN - SERUM 6.1 g/dL (6.4-8.2); SODIUM 139 mmol/L (136-145); UREA NITROGEN 6 mg/dL (7-18); eGFR NON AFRICAN AMERICAN > 90 mL/min (90-120)
[2017-08-19 09:50] VITALS: BP 114/66; BP 116/62
[2017-08-19 10:14] VITALS: BMI 22.7
[2017-08-19] MEDS ORDERED: TAMIFLU75 MG PO (11:31)
[2017-08-19 11:33] VITALS: Ht 157.5 cm; Wt 56.5 kg
[2017-08-19 12:15] VITALS: BP 114/54
== END 2017-08-19 14:15 | disposition home or self-care (01) | DRG 193 ==
LOC: D.ER 09:14 → D.EDHOLD 12:32 → D.M2 20:15
PROVIDERS: Family Medicine
DX: J10.1 Influenza due to other identified influenza virus with other respiratory manifestations (principal); R53.2 Functional quadriplegia; I48.91 Unspecified atrial fibrillation; E78.5 Hyperlipidemia, unspecified; J44.9 Chronic obstructive pulmonary disease, unspecified; Z87.891 Personal history of nicotine dependence; Z87.820 Personal history of traumatic brain injury

== ENCOUNTER → 2018-11-28 11:02 | Outpatient (CLI) | payer MEDICARE, OTHER ==
[2017-08-19 11:33] VITALS: BMI 22.7
[~2018-11-28 11:02] MED LIST changes: +TAMIFLU75 MG PO
--- NOTE | 2018-11-30 11:28 | EC ---
PATIENT:ROGER FARRELL DATE OF SERVICE: 11/28/18 SEX: F MEDICAL RECORD: [id number] DATE OF : 47 LOCATION:[facility] AGE OF PATIENT: 73 ADMISSION DATE: 11/28/18 REFERRING PHYSICIAN: INTERPRETING PHYSICIAN: ELISE FOUNTAIN MD ECHOCARDIOGRAM REPORT ECHO CHARGES 4 ECHO COMPLETE Date: 11/28/18 CLINICAL DIAGNOSIS: ABNORMAL EKG/A-FIB/SOB ECHOCARDIOGRAPHIC MEASUREMENTS (adult normal given) AC root (d.<3.7cm) 3.4 cm LV Septum d (<1.2 cm> 1.0 cm Valve Excursion 1.8 cm LV Septum (systole) 1.4 cm Left Atria (s.<4.0cm> 3.2 cm LVPW d(<1.2cm) 0.9 cm RV (d.<2.3cm) 2.6 cm LVPW (sytole) 1.5 cm LV diastole(<5.6CM) 5.1 cm MV E-F(>70mm/sec) cm LV systole 3.4 cm LVOT Diameter 1.8 cm MV exc.(>10mm) cm Est.ejection fraction (50-75%) % DOPPLER: LVIT cm/sec A 104 cm/sec E 57.0 cm/sec LA cm/sec RVSP 37.2 mmHg LVOT 130 cm/sec AOP1/2T m/s Asc. Ao 109 cm/sec RVOT 55.0 cm/sec RA cm/sec PA 80.0 cm/sec AV Gradient Peak 4.8 mmHg AV Mean 2.6 mmHg AV Area 2.7 cm MV Gradient Peak 4.4 mmHg MV Mean 1.4 mmHg MV Area cm COMMENTS: OP - HC Export Traffic Department Manager: Wilma COPEOE Roving Can Tender: 1 Dr. Fountain TAPE# PACS Pericardial Effusion N DATE OF SERVICE: 11/28/2018 PROCEDURE: Echocardiogram. FINDINGS: 1. Left ventricular chamber size is within normal limits. Left ventricular systolic function is normal. Overall ejection fraction estimated at 55%. 2. Left atrium, right atrium and right ventricular chamber sizes are within normal limits. 3. Valvular structures have normal structure and motion. ECHOCARDIOGRAM REPORT [id number] ROGER FARRELL 4. Doppler interrogation reveals trace tricuspid regurgitation, no other valvular insufficiency or stenosis. Pulmonary systolic pressure is estimated 37 mmHg. 5. No evidence of pericardial effusion or left ventricular thrombus. TRANSINT:[id number] Voice Confirmation ID: [id number] DOCUMENT ID: [id number] ELISE FOUNTAIN MD at 1128 CC: [id number] DICTATION DATE: 11/29/18 1525 CONSTRUCTION SUPERINTENDENT: 11/29/18 1615 [facility] CLI 11/28/18 [place] [id number]
== END | disposition home or self-care (01) ==
LOC: D.HCCARDIO 11:00
PROVIDERS: ATTEND Internal Medicine Interventional Cardiology
DX: R06.02 Shortness of breath (principal)

== ENCOUNTER → 2018-11-29 11:44 | Outpatient (CLI) | payer MEDICARE, OTHER | END | disposition home or self-care (01) | LOC: D.HCCARDIO 11:44 | DX: I48.91 Unspecified atrial fibrillation (principal) ==